=== PATIENT | female | born 1955 | race Two or more races ===

== ENCOUNTER 2020-08-20 17:22 | Emergency (ER) | payer OTHER, SELFPAY ==
[2020-08-20 17:33] VITALS: BP 154/76; PULSE 88; RESP 16; TEMP 36.8; O2SAT 99; BMI 31.2
--- NOTE | 2020-08-20 17:52 | ECG_ITS ---
Test Reason : WEAKNESS Blood Pressure : / mmHG Vent. Rate : 085 BPM Atrial Rate : 085 BPM P-R Int : 198 ms QRS Dur : 092 ms QT Int : 384 ms P-R-T Axes : 053 -15 071 degrees QTc Int : 456 ms Normal sinus rhythm Left axis deviation Minimal voltage criteria for LVH, may be normal variant Borderline ECG When compared with ECG of 03-AUG-2019 17:58, Left bundle branch block is no longer Present Referred By: Betsy Hope Electronically Signed By:BRENDA CASTRO MD
--- NOTE | 2020-08-20 18:11 | ED_ITS ---
HPI - General Adult General Chief complaint: General Medical Stated complaint: leg pain, dizzy, nausea Time Seen by Provider: 08/20/20 17:43 Source: patient and EMS Mode of arrival: EMS History of Present Illness HPI narrative: 65-year-old female with a past medical history of hypoglycemia presenting to ED complaining of low sugar at home of 100, room spinning dizziness, DE SANTI[place]O, nausea, and diffuse myalgias > LE x today. Reports dizziness associated with position changes. reports similar symptoms in the past. Also describes near syncopal episode due to cramping / dizziness. Denies LOC/head trauma. Denies fever, chills, visual change/loss, neck pain, CP / SOB, vomiting/ diarrhea, urinary symptoms Onset (ago): day(s) Related Data Allergies Allergy/AdvReac Type Severity Reaction Status Date / Time seafood Allergy Intermediate Dizziness Uncoded 08/20/20 19:43 Review of Systems Review of Systems: Constitutional: No Fever, No Chills, No Night Sweats, No Fatigue, No Malaise Eyes: No Eye Pain, No Swelling, No Vision Changes Cardiovascular: No Chest Pain, No SOB, No Dyspnea on Exertion, No Palpitations Respiratory: No Cough, No Sputum, No Dyspnea Gastrointestinal: +Nausea, No Vomiting, No Diarrhea, No Constipation, No Abdominal pain Genitourinary: No Dysuria, No Urinary Frequency, No Hematuria Musculoskeletal: No joint pain, + Myalgias, No Joint Swelling Skin: No Skin Lesions, No rash Neuro: No Weakness, No Numbness, No Paresthesias, No Loss of Consciousness, + Dizziness, + Headache Neurologic: Reports Abnormal speech present and Denies Sensory deficit (Neuro) [facility] Past Medical History Attestation statement: The following information was validated with the patient. Source: nursing notes reviewed Social History Social History Alcohol intake: never Smoking Status: Never smoker Use of substances other than those prescribed or required for medical reasons: No Advance Directives: No Advance Directives Information Provided: Yes Physical Exam Vital Signs: Vital Signs: Vital Signs Temp Pulse Resp BP Pulse Ox 08/20/20 19:50 80 143/81 H 08/20/20 19:39 95.9 F L 88 18 127/80 100 08/20/20 17:33 98.2 F 88 16 154/76 H 99 Body Mass Index 31.2 Const: General: cooperative and healthy appearing Or ientation/consciousness: patient oriented x3 Limitations: no limitations HENMT: Head: Yes normal to inspection Ears: hearing grossly normal bilaterally General nose exam: Normal external nose present Face and sinus : Yes normal facial exam Eyes: General: appearance normal, both eyes and all related structures Pupils: Equal, round and reactive pupils present EOM: EOMs intact bilaterally Neck: Neck: Yes normal visual inspection and Yes no meningeal signs Resp: Effort & Inspection: normal respiratory effort Auscultation: clear to auscultation bilaterally, no crackles, no rales and no rhonchi Cardio: Rate: regular rate Heart sounds: S1 normal heart sound present and S2 normal heart sound present GI: Inspection: Yes normal to inspection Palpation (GI): Soft to palpation, nontender, no guarding and not rigid Skin: Rashes: no rashes Wounds: no wounds Neuro: General: patient oriented x3, tone normal, moves all extremities, no meningeal signs, no focal motor deficits and CN's II-XI intact bilaterally Cranial nerves: Yes Equal, round and reactive pupils present Cognition (Neuro): normal cognition Speech: Abnormal speech present Motor exam (neuro): 5/5 motor strength present throughout Sensory Exam: No Sensory deficit (Neuro) Coordination: [id number] test normal Extrem: General: Yes normal to inspection Course Course Course Narrative: -1942-- labs unremarkable, troponin negative, glucose 121 - UA negative, Orthostatic VS negative > on re-evaluation pt reports sx improvement/resolution in the ED. Worrisome signs and symptoms and strict return precautions discussed. Patient verbalized understanding feel safe for discharge home Medical Decision Making [facility] Narrative Medical decision making narrative: 65-year-old female with a past medical history of hypoglycemia presenting to ED complaining of low sugar at home of 100, room spinning dizziness, DE S[place]O, nausea, and diffuse myalgias > LE x today. on exam VSS, NAD/ nontoxic appearing, no focal neuro deficits, dizziness elicited on EOMs. Concern for ?hypoglycemia vs BPPV vs dehydration/metabolic abnormalities vs ACS. no concern for SAH/ICH/CVT plan: EKG, labs, UA, orthostatics, symptomatic therapy/reassess Lab Data Result diagrams: 08/20/20 18:52 08/20/20 18:52 Labs: Lab Results 08/20/20 08/20/20 08/20/20 Range/Units 18:52 18:52 18:52 WBC 8.9 (4.8-10.8) X10*3/uL RBC 4.68 (4.20-5.50) X10*6/uL Hgb 11.3 L (12.0-16.0) g/dl Hct 37.5 (37-47) % MCV 80.1 (80-98) fL MCH 24.1 L (27.0-33.0) pg MCHC 30.1 L (31.0-35.0) g/dl RDW 15.5 (11.0-16.0) % Plt Count 272 (160-400) X10*3/uL MPV 10.0 (9.4-12.3) fL Immature Gran % (Auto) 0.3 (0.0-0.4) % Neut % (Auto) 67.0 (45-73) % Lymph % (Auto) 26.9 (20-40) % [place] % (Auto) 4.2 (2-11) % Eos % (Auto) 0.8 (0-4) % Baso % (Auto) 0.8 (0-2) % Lymph # (Auto) 2.4 (1.2-4.9) X10*3/uL [place] # (Auto) 0.4 (0.1-1.2) X10*3/uL Eos # (Auto) 0.1 (0.0-0.4) X10*3/uL Baso # (Auto) 0.1 (0.0-0.2) X10*3/uL Abs Immat Gran (auto) 0.03 (0.00-0.03) X10*3/uL Absolute Neuts (auto) 6.0 (2.0-8.3) X10*3/uL Absolute Nucleated RBC 0.000 (0.0-0.012) X10*3/uL Nucleated RBC % (auto) 0.0 (0.0-0.2) /100WBC Hold Blue Top SEE NOTE Sodium 139 (135-145) mmol/L Potassium 4.1 (3.3-5.1) mmol/l Chloride 106 (96-108) mmol/L Carbon Dioxide 22 (22-29) mmol/L Anion Gap 15 (12-20) BUN 17 H (9-16) mg/dL Creatinine 0.80 (0.5-1.4) mg/dL Estim Creat Clear Calc 66.6 Estimated GFR > 60 POC Glucose (60-115) mg/dL Random Glucose 121 H (60-115) mg/dL Calcium 8.3 L (8.4-10.2) mg/dL Magnesium 2.1 (1.6-2.6) mg/dL Total Bilirubin < 0.2 (0.0-1.0) mg/dL Direct Bilirubin < 0.2 (0.0-0.5) mg/dL AST 14 (5-31) U/L ALT 14 (0-31) U/L Alkaline Phosphatase 172 H (39-117) U/L Total Creatine Kinase (26-140) U/L Troponin I High Sens (<3.5-17.0) ng/L Total Protein 7.8 (6.5-8.0) g/dL Albumin 4.0 (3.5-5.0) g/dL Urine Color Urine Appearance Urine pH (5.0-8.0) Ur Specific [place] (1.005-1.025) Urine Protein (NEG-TRACE) MG/DL Urine Glucose (UA) (NEG) MG/DL Urine Ketones (NEG) MG/DL Urine Blood (NEG) Urine Nitrite (NEG) Ur Leukocyte Esterase (NEG) 08/20/20 08/20/20 08/20/20 Range/Units 18:52 18:52 19:49 WBC (4.8-10.8) X10*3/uL RBC (4.20-5.50) X10*6/uL Hgb (12.0-16.0) g/dl Hct (37-47) % MCV (80-98) fL MCH (27.0-33.0) pg MCHC (31.0-35.0) g/dl RDW (11.0-16.0) % Plt Count (160-400) X10*3/uL MPV (9.4-12.3) fL Immature Gran % (Auto) (0.0-0.4) % Neut % (Auto) (45-73) % Lymph % (Auto) (20-40) % [place] % (Auto) (2-11) % Eos % (Auto) (0-4) % Baso % (Auto) (0-2) % Lymph # (Auto) (1.2-4.9) X10*3/uL [place] # (Auto) (0.1-1.2) X10*3/uL Eos # (Auto) (0.0-0.4) X10*3/uL Baso # (Auto) (0.0-0.2) X10*3/uL Abs Immat Gran (auto) (0.00-0.03) X10*3/uL Absolute Neuts (auto) (2.0-8.3) X10*3/uL Absolute Nucleated RBC (0.0-0.012) X10*3/uL Nucleated RBC % (auto) (0.0-0.2) /100WBC Hold Blue Top Sodium (135-145) mmol/L Potassium (3.3-5.1) mmol/l Chloride (96-108) mmol/L Carbon Dioxide (22-29) mmol/L Anion Gap (12-20) BUN (9-16) mg/dL Creatinine (0.5-1.4) mg/dL Estim Creat Clear Calc Estimated GFR POC Glucose (60-115) mg/dL Random Glucose (60-115) mg/dL Calcium (8.4-10.2) mg/dL Magnesium (1.6-2.6) mg/dL Total Bilirubin (0.0-1.0) mg/dL Direct Bilirubin (0.0-0.5) mg/dL AST (5-31) U/L ALT (0-31) U/L Alkaline Phosphatase (39-117) U/L Total Creatine Kinase 99 (26-140) U/L Troponin I High Sens < 3.5 (<3.5-17.0) ng/L Total Protein (6.5-8.0) g/dL Albumin (3.5-5.0) g/dL Urine Color YELLOW Urine Appearance CLEAR Urine pH 7.0 (5.0-8.0) Ur Specific Penn 1.010 (1.005-1.025) Urine Protein NEG (NEG-TRACE) MG/DL Urine Glucose (UA) NEG (NEG) MG/DL Urine Ketones NEG (NEG) MG/DL Urine Blood NEG (NEG) Urine Nitrite NEG (NEG) Ur Leukocyte Esterase NEG (NEG) 08/20/20 Range/Units 20:05 WBC (4.8-10.8) X10*3/uL RBC (4.20-5.50) X10*6/uL Hgb (12.0-16.0) g/dl Hct (37-47) % MCV (80-98) fL MCH (27.0-33.0) pg MCHC (31.0-35.0) g/dl RDW (11.0-16.0) % Plt Count (160-400) X10*3/uL MPV (9.4-12.3) fL Immature Gran % (Auto) (0.0-0.4) % Neut % (Auto) (45-73) % Lymph % (Auto) (20-40) % [place] % (Auto) (2-11) % Eos % (Auto) (0-4) % Baso % (Auto) (0-2) % Lymph # (Auto) (1.2-4.9) X10*3/uL [place] # (Auto) (0.1-1.2) X10*3/uL Eos # (Auto) (0.0-0.4) X10*3/uL Baso # (Auto) (0.0-0.2) X10*3/uL Abs Immat Gran (auto) (0.00-0.03) X10*3/uL Absolute Neuts (auto) (2.0-8.3) X10*3/uL Absolute Nucleated RBC (0.0-0.012) X10*3/uL Nucleated RBC % (auto) (0.0-0.2) /100WBC Hold Blue Top Sodium (135-145) mmol/L Potassium (3.3-5.1) mmol/l Chloride (96-108) mmol/L Carbon Dioxide (22-29) mmol/L Anion Gap (12-20) BUN (9-16) mg/dL Creatinine (0.5-1.4) mg/dL Estim Creat Clear Calc Estimated GFR POC Glucose 86 (60-115) mg/dL Random Glucose (60-115) mg/dL Calcium (8.4-10.2) mg/dL Magnesium (1.6-2.6) mg/dL Total Bilirubin (0.0-1.0) mg/dL Direct Bilirubin (0.0-0.5) mg/dL AST (5-31) U/L ALT (0-31) U/L Alkaline Phosphatase (39-117) U/L Total Creatine Kinase (26-140) U/L Troponin I High Sens (<3.5-17.0) ng/L Total Protein (6.5-8.0) g/dL Albumin (3.5-5.0) g/dL Urine Color Urine Appearance Urine pH (5.0-8.0) Ur Specific [place] (1.005-1.025) Urine Protein (NEG-TRACE) MG/DL Urine Glucose (UA) (NEG) MG/DL Urine Ketones (NEG) MG/DL Urine Blood (NEG) Urine Nitrite (NEG) Ur Leukocyte Esterase (NEG)
[2020-08-20 19:00] LABS: MANUAL DIFF FLAG NO
[2020-08-20 19:06] LABS: Basophils Absolute Auto 0.1 X10*3/uL (0.0-0.2); Basophils Percent Auto 0.8 % (0-2); Eosinophils Absolute Auto 0.1 X10*3/uL (0.0-0.4); Eosinophils Percent Auto 0.8 % (0-4); Hematocrit 37.5 % (37-47); Hemoglobin 11.3 g/dl (12.0-16.0); Imm Gran Abs Auto 0.03 X10*3/uL (0.00-0.03); Imm Gran Pct Auto 0.3 % (0.0-0.4); Lymphocytes Absolute Auto 2.4 X10*3/uL (1.2-4.9); Lymphocytes Percent Auto 26.9 % (20-40); Mean Corpuscular HGB Conc 30.1 g/dl (31.0-35.0); Mean Corpuscular Hemoglobin 24.1 pg (27.0-33.0); Mean Corpuscular Volume 80.1 fL (80-98); Monocytes Absolute Auto 0.4 X10*3/uL (0.1-1.2); Monocytes Percent Auto 4.2 % (2-11); Platelet Count 272 X10*3/uL (160-400); Red Blood Count 4.68 X10*6/uL (4.20-5.50); Red Cell Distribution Width 15.5 % (11.0-16.0); White Blood Count 8.9 X10*3/uL (4.8-10.8)
[2020-08-20 19:29] LABS: Troponin-I High Sensitivity < 3.5 ng/L (<3.5-17.0)
[2020-08-20] MEDS: Acetaminophen 325 MG TABLET 650 MG PO (19:37)
[2020-08-20] MEDS: ondansetron HCL 4 MG/2 ML VIAL IVPUSH (19:37)
[2020-08-20] MEDS: Meclizine HCl 25 MG TABLET PO (19:37)
[2020-08-20 19:38] LABS: Alanine Aminotransferase 14 U/L (0-31); Alkaline Phosphatase 172 U/L (39-117); Anion Gap 15 (12-20); Aspartate Amino Transferase 14 U/L (5-31); Bilirubin Direct < 0.2 mg/dL (0.0-0.5); Bilirubin Total < 0.2 mg/dL (0.0-1.0); Blood Urea Nitrogen 17 mg/dL (9-16); Calcium 8.3 mg/dL (8.4-10.2); Carbon Dioxide 22 mmol/L (22-29); Chloride 106 mmol/L (96-108); Creatinine Clr Calc Pharmacy 66.6; Estimated Glomerular Filt Rate > 60; Glucose Random 121 mg/dL (60-115); Magnesium 2.1 mg/dL (1.6-2.6); Potassium 4.1 mmol/l (3.3-5.1); Sodium 139 mmol/L (135-145); Total Protein 7.8 g/dL (6.5-8.0)
[2020-08-20] MEDS: 0.9 % Sodium Chloride 1,000 ML 999 ML IVCONT (19:38)
[2020-08-20 19:39] VITALS: BP 127/80; PULSE 88; RESP 18; TEMP 35.5; O2SAT 100
[2020-08-20 19:50] VITALS: BP 143/81; PULSE 80
[2020-08-20 20:01] LABS: Glucose Urine UA NEG (NEG); Leukocyte Esterase Urine NEG (NEG); Nitrite Urine NEG (NEG); Urine Blood NEG (NEG); Urine Ketones NEG (NEG); Urine Protein NEG (NEG-TRACE)
[2020-08-20 20:04] LABS: Appearance Urine CLEAR; Color Urine YELLOW
[2020-08-20 20:10] LABS: Glucose, Whole Blood 86 mg/dL (60-115)
== END 2020-08-20 20:54 | disposition home or self-care (01) ==
PROVIDERS: Physician Assistant; Emergency Provider Internal Medicine
DX: E16.2 Hypoglycemia, unspecified (principal); M79.605 Pain in left leg; M79.604 Pain in right leg; R42 Dizziness and giddiness
CPT/HCPCS: 36415; 80048; 80076; 81003; 82550; 82947; 83735; 84484; 85025; 93005; 96361; 96374; 99284; J2405

== ENCOUNTER 2020-09-26 13:39 | Outpatient (REF) | payer OTHER, SELFPAY ==
--- NOTE | 2020-09-26 | PFT_ITS ---
Forced vital capacity, FEV1, BFU69-37, and MVV normal. Post bronchodilator therapy, there is no significant change. Total lung capacity and residual volume normal. Diffusion capacity normal. CONCLUSION: Normal pulmonary function test. MD MARTIN Man/MODL / [id number]
== END 2020-09-26 13:40 | disposition home or self-care (01) ==
LOC: HO.RESP 13:39
PROVIDERS: PCP Family Medicine; Visit Provider Family Medicine
DX: J45.40 Moderate persistent asthma, uncomplicated (principal); J30.9 Allergic rhinitis, unspecified; R49.0 Dysphonia
CPT/HCPCS: 94060; 94727; 94729

== ENCOUNTER → 2021-01-08 08:53 | Outpatient (REF) | payer OTHER, SELFPAY ==
--- NOTE | ~2021-01-08 | NM_ITS ---
Myocardial perfusion study Indication: Shortness of breath to evaluate for myocardial ischemia Technique: The patient was brought in for a Lexiscan perfusion study on 01/08/2021. Patient performed low-level exercise and was injected 0.4 mg of Lexiscan intravenously. Within a minute of injection, 25 mCi of sestamibi was given intravenously. Images were obtained using the SPECT gamma camera interlaced with the gating device. Images were obtained in supine position. Resting perfusion study was performed on 01/09/2021. Patient was administered 25 mCi of sestamibi intravenously at rest. Images were then obtained in supine position. Images obtained with and without CT attenuation. Total DLP 73 mGy-cm. Images were processed with the software and compared side to side in short axis, horizontal long axis and vertical long axis views. Findings: The stress perfusion study showed non attenuated images show normal uptake of radiotracer in all segments of LV myocardium. Attenuation corrected images show moderately reduced uptake in the distal apical wall of the cardiac.. The gated study shows normal LV systolic function with calculated LVEF of 57%. LV cavity is normal size. The gated study shows normal systolic wall thickening and contraction of segments. Resting study shows non attenuated attenuated corrected images show normal uptake of radiotracer in all segments myocardium.. Gating at rest reveals normal systolic wall motion with ejection fraction at greater than 50 %. The findings are consistent with equivocal finding with normal perfusion on non attenuated images. There is reversible defect attenuation corrected images probably is positive positive. NM/NM charley perf SPECT rest & str Impression: 1. Myocardial perfusion imaging study shows likely normal myocardial perfusion 2. Gated LVEF is 57% 3. Transient ischemic dilatation not present EKG is nondiagnostic for ischemia
--- NOTE | 2021-01-08 09:30 | CA_ITS ---
Acquisition Time: 2021-01-08 09:20:07 Total Exercise Time: 00:02:00 Test Indications: sob Medications: see chart Protocol: LEXISCAN Max HR: 111 BPM 72% of Pred: 154 BPM Max BP: 124/078 mmHG Max Work Load: 1.0 METS Pharmacological stress test with Lexiscan injection, while sitting and kicking her legs, without anginal symptoms, without arrythmia, with normotensive response to injection, with nondiagnostic EKG for ischemia, In recovery she reported lightheadedness and was treated with Aminophylline 75mg IVP to reverse Lexiscan with improvement in symptom. Nuclear images pending. Test reviewed with Dr Serra. Referred By: Walt Hernandez Overread By: RODRIGUEZ JEONG
== END ==
LOC: HO.CARD 08:53
PROVIDERS: Visit Provider Internal Medicine Cardiovascular Disease
DX: R06.02 Shortness of breath (principal)
CPT/HCPCS: 78452; 93017; A9500; J0280; J2785

== ENCOUNTER 2022-02-26 10:10 | Outpatient (REF) | payer OTHER, SELFPAY ==
--- NOTE | ~2022-02-26 | MM_ITS ---
EXAMINATION: BONE DENSITOMETRY CLINICAL INDICATION: Menopause. COMPARISON: None (current study represents initial baseline exam). TECHNIQUE: Using a Fusion Dynamic DXA System (software version: 13.1) manufactured by [employer], dual-energy x-ray absorptiometry was performed of the lumbar spine and left hip. The images are of good technical quality. Summary results are attached. FINDINGS: AP SPINE L1-L4: BMD 0.962 g/cm2, Z-score -0.6, T-score -1.8, osteopenia. LEFT FEMUR, NECK: BMD 0.738 g/cm2, Z-score -0.8, T-score -2.2, osteopenia. LEFT FEMUR, TOTAL: BMD 0.796 g/cm2, Z-score -0.6, T-score -1.7, osteopenia. IDENTIFIED RISK FACTORS: Early menopause, hysterectomy, secondary osteoporosis. HISTORY OF FRACTURE: None listed. MEDICATIONS: Vitamin D. MM/XR DEXA axial skeleton IMPRESSION: 1. DIAGNOSIS: Osteopenia based on the lowest T-score value of -2.2 in the femoral neck applying World Health Organization criteria. 2. 10-YEAR FRACTURE RISK PREDICTION, FRAX: Major osteoporotic fracture (clinical spine, forearm, hip or shoulder) 6.4%. Hip fracture 1.1%. 3. Treatment Recommendations: NOF guidelines recommend consideration for treatment in postmenopausal women and men age 50 and older presenting with the following: -A hip or vertebral (clinical or morphometric) fracture. -T-score less than or equal to -2.5 at the femoral neck or spine after appropriate evaluation to exclude secondary causes. -Low bone mass at the hip or spine and a 10-year fracture probability by FRAX of greater than or equal to 3% for hip fracture or greater than or equal to 20% for major osteoporotic fracture based on the [place] adapted WHO algorithm. 4. Other Recommendations: All treatment decisions require clinical judgment and consideration of individual patient factors, including patient preferences, comorbidities, previous drug use, risk factors not captured in the FRAX model (e.g. frailty, falls, vitamin D deficiency, increased bone turnover, interval significant decline in bone density) and possible under or overestimation of fracture risk by FRAX. Additional medical evaluation for secondary cause of low bone mineral density may be appropriate. FUTURE SCAN RECOMMENDATION: People with diagnosed cases of osteoporosis or at high risk for fracture should have regular bone mineral density tests. For patients eligible for Medicare, routine testing is allowed once every 2 years. The testing frequency can be increased to one year for patients who have rapidly progressing disease, those who are receiving or discontinuing medical therapy to restore bone mass, or have additional risk factors.
--- NOTE | ~2022-02-26 | MM_ITS ---
EXAMINATION: MM SCREENING DIGITAL BREAST TOMOSYNTHESIS, BILATERAL CLINICAL INFORMATION: Screening. Asymptomatic. The lifetime risk of breast cancer based on the Tyrer-Cuzick Model is 3%. COMPARISON: Mammography: 08/22/2017, 09/01/2015 TECHNIQUE: Digital breast tomosynthesis is performed in both the craniocaudal and mediolateral oblique views along with computer-aided detection (CAD). Synthesized 2D images are generated from the tomosynthesis. FINDINGS: There are scattered areas of fibroglandular density (ACR BI-RADS breast composition Category b). Parenchymal pattern borders on heterogeneously dense. There is no developing density or interval significant mass or architectural abnormality. Circumscribed nodule again noted left breast mid 3:00 position. There is a dermal lesion overlying the posterior upper outer right breast. Scattered bilateral vascular and some benign round calcifications are present. No suspicious calcifications. The axilla and skin contours are unremarkable. MM/MM tomosynthesis screening BI IMPRESSION: No mammographic evidence of malignancy. ASSESSMENT: BI-RADS 2: Benign RECOMMENDATION: Routine annual mammography screening. This patient's information was entered into a reminder system with a target due date for their next mammogram.
== END 2022-02-26 10:11 | disposition home or self-care (01) ==
LOC: HO.MAMMO 10:10
PROVIDERS: PCP Family Medicine; Visit Provider Family Medicine
DX: Z12.31 Encounter for screening mammogram for malignant neoplasm of breast (principal); Z13.820 Encounter for screening for osteoporosis; Z78.0 Asymptomatic menopausal state; M85.80 Other specified disorders of bone density and structure, unspecified site
CPT/HCPCS: 77063; 77067; 77080

== ENCOUNTER 2022-04-23 19:28 | Emergency (ER) | payer OTHER, SELFPAY ==
[2022-04-23 21:35] VITALS: BP 141/73; PULSE 97; RESP 16; TEMP 36.4; O2SAT 98; BMI 31.7
[2022-04-23 23:30] LABS: COVID-19 Test Negative (Negative); IDNOW Serial# 16C4AD1C; IDNOW Serial# 55D5AD1C; Influenza A Negative (Negative); Influenza B2 Negative (Negative)
== END 2022-04-24 00:31 | disposition left against medical advice (07) ==
PROVIDERS: Emergency Medicine; Emergency Provider Emergency Medicine
DX: R51.9 Headache, unspecified (principal); Z20.822 Contact with and (suspected) exposure to COVID-19
CPT/HCPCS: 87502; 87635; 99281; 99282

== ENCOUNTER 2023-04-15 08:42 | Outpatient (REF) | payer OTHER, SELFPAY ==
--- NOTE | ~2023-04-15 | CT_ITS ---
EXAMINATION: CT head/brain wo IV con CLINICAL INFORMATION: Dizziness COMPARISON: None. TECHNIQUE: Contiguous axial imaging was performed from the skull base to vertex without intravenous contrast. Sagittal and coronal reformatted images were obtained. This CT examination was performed using dose optimization techniques as appropriate, variously including the following: * Automated exposure control * Adjustment of mA and/or kV according to patient size (this includes techniques or standardized protocols for targeted exams where dose is matched to indication/reason for exam; i.e. extremities or head) Use of iterative reconstruction technique DLP: 652.54 mGy-cm FINDINGS: The ventricles and sulci are normal in size and configuration without significant volume loss or hydrocephalus. There is no abnormal attenuation within the brain parenchyma. No territorial loss of kirk-white differentiation. Partially empty sella. No acute intracranial hemorrhage or extra-axial fluid collection. No mass lesion, significant mass effect, or herniation pattern. Calcific atherosclerotic disease, most pronounced of the carotid siphons. The orbits are grossly normal. Paranasal sinuses and mastoid air cells are well aerated. Osseous structures are intact. Incidental hyperostosis frontalis interna. Mild degenerative changes of the bilateral temporomandibular joints. Mild to moderate degenerative osseous spurring across the anterior atlantodental interval. CT/CT head/brain wo IV con IMPRESSION: No acute intracranial abnormality. Partially empty sella.
== END 2023-04-15 08:43 | disposition home or self-care (01) ==
LOC: HO.CT 08:42
PROVIDERS: Visit Provider Family Medicine
DX: R42 Dizziness and giddiness (principal)
CPT/HCPCS: 70450

== ENCOUNTER 2023-08-20 10:33 | Outpatient (REF) | payer OTHER, SELFPAY ==
--- NOTE | ~2023-08-20 | MM_ITS ---
EXAMINATION: MM SCREENING DIGITAL BREAST TOMOSYNTHESIS, BILATERAL CLINICAL INFORMATION: Screening. Asymptomatic. COMPARISON: Mammography: This study is compared with prior exams dating back to 2015. TECHNIQUE: Digital breast tomosynthesis is performed in both the craniocaudal and mediolateral oblique views along with computer-aided detection (CAD). Synthesized 2D images are generated from the tomosynthesis. FINDINGS: There are scattered areas of fibroglandular density (ACR BI-RADS breast composition Category b). There are no significant masses, abnormal calcifications, or other abnormalities. MM/MM tomosynthesis screening BI IMPRESSION: No mammographic evidence of malignancy. ASSESSMENT: BI-RADS BI-RADS 1 - Negative RECOMMENDATION: Routine annual mammography screening. 1 year F/U This examination should not preclude the clinical evaluation of a suspicious palpable abnormality. This patient's information was entered into a reminder system with a target due date for their next mammogram.
== END 2023-08-20 10:34 | disposition home or self-care (01) ==
LOC: HO.MAMMO 10:33
PROVIDERS: PCP Family Medicine; Visit Provider Family Medicine
DX: Z12.31 Encounter for screening mammogram for malignant neoplasm of breast (principal)
CPT/HCPCS: 77063; 77067

== ENCOUNTER → 2023-08-20 11:15 | Outpatient (BNV) | payer OTHER, SELFPAY | PROVIDERS: PCP Family Medicine; Visit Provider Radiology Diagnostic Radiology | DX: Z12.31 Encounter for screening mammogram for malignant neoplasm of breast (principal) | CPT/HCPCS: 77063; 77067 ==

== ENCOUNTER 2023-10-29 09:45 | Outpatient (REF) | payer OTHER, SELFPAY ==
[2023-10-29 11:58] LABS: Estimated Average Glucose 131 mg/dL; Hemoglobin A1c % 6.2 % (<6.0)
[2023-10-29 12:21] LABS: Alanine Aminotransferase 19 U/L (0-31); Albumin Level 3.9 g/dL (3.5-5.0); Alkaline Phosphatase 148 U/L (39-117); Anion Gap 13 (12-20); Aspartate Amino Transferase 15 U/L (5-31); Bilirubin Total 0.4 mg/dL (0.0-1.0); Blood Urea Nitrogen 22 mg/dL (9-16); Calcium 9.4 mg/dL (8.4-10.2); Carbon Dioxide 26 mmol/L (22-29); Chloride 108 mmol/L (96-108); Cholesterol 180 mg/dL (<200); Estimated Glomerular Filt Rate > 60; Glucose Random 82 mg/dL (60-115); HDL Cholesterol 49 mg/dL (>40); LDL Cholesterol Calculated 101 mg/dL (<100); Sodium 143 mmol/L (135-145); TSH reflex Free T4 1.76 uIU/mL (0.32-4.0); Total Protein 7.5 g/dL (6.5-8.0); Triglycerides 150 mg/dL (<150)
[2023-10-29 13:58] LABS: Reflex LDLD? No
== END 2023-10-29 09:46 | disposition home or self-care (01) ==
LOC: HO.HHCL 09:45
PROVIDERS: Visit Provider Family Medicine
DX: E03.8 Other specified hypothyroidism (principal); E06.3 Autoimmune thyroiditis; I10 Essential (primary) hypertension; R73.01 Impaired fasting glucose
CPT/HCPCS: 36415; 80053; 80061; 83036; 84443

== ENCOUNTER 2024-02-19 05:06 | Emergency (ER) | payer OTHER, SELFPAY ==
[2024-02-19] VITALS (9 sets, daily range): BP systolic 119–180; BP diastolic 56–110; PULSE 72–78; RESP 13–18; TEMP 36.6–37.2; O2SAT 95–97; BMI 32.3
--- NOTE | 2024-02-19 | ECG_ITS ---
Test Reason : CHEST PAIN Blood Pressure : / mmHG Vent. Rate : 069 BPM Atrial Rate : 069 BPM P-R Int : 210 ms QRS Dur : 130 ms QT Int : 456 ms P-R-T Axes : 055 -29 073 degrees QTc Int : 488 ms Sinus rhythm with 1st degree A-V block Left bundle branch block Abnormal ECG When compared with ECG of 20-AUG-2020 18:57, Left bundle branch block is now Present Referred By: Generic ED Physician Electronically Signed By:LATRICIA TRAN
--- NOTE | ~2024-02-19 | CT_ITS ---
EXAMINATION: CT HEAD WITHOUT CONTRAST CLINICAL INFORMATION: Severe headache. COMPARISON: 04/15/2023. TECHNIQUE: Contiguous axial imaging was performed from the skull base to vertex without intravenous administration of contrast. This CT examination was performed using dose optimization techniques as appropriate, variously including the following: *Automated exposure control *Adjustment of mA and/or kV according to patient size (this includes techniques or standardized protocols for targeted exams where dose is matched to indication/reason for exam; i.e. extremities or head) *Use of iterative reconstruction technique DLP: 582 mGy-cm FINDINGS: There is no evidence of acute intracranial hemorrhage or large territorial infarction. No mass effect or midline shift is seen. Patel to white matter differentiation is preserved. No extra-axial fluid collections are identified. Partially empty sella. No hydrocephalus. Hyperostosis frontalis. Degenerative changes of the temporomandibular joints. The soft tissues are intact. The mastoid air cells and visualized portions of the paranasal sinuses are well aerated. CT/CT head/brain wo IV con IMPRESSION: No acute intracranial pathology.
[2024-02-19 05:50] LABS: Basophils Absolute Auto 0.1 X10*3/uL (0.0-0.2); Basophils Percent Auto 1.1 % (0-2); Eosinophils Absolute Auto 0.2 X10*3/uL (0.0-0.4); Eosinophils Percent Auto 2.6 % (0-4); Hematocrit 36.7 % (37.0-47.0); Hemoglobin 11.6 g/dl (12.0-16.0); Imm Gran Abs Auto 0.03 X10*3/uL (0.00-0.03); Imm Gran Pct Auto 0.4 % (0.0-0.4); Lymphocytes Absolute Auto 3.1 X10*3/uL (1.2-4.9); Lymphocytes Percent Auto 37.5 % (20-40); MANUAL DIFF FLAG NO; Mean Corpuscular HGB Conc 31.6 g/dl (31.0-35.0); Mean Corpuscular Hemoglobin 26.2 pg (27.0-33.0); Mean Platelet Volume 9.9 fL (9.4-12.3); Monocytes Absolute Auto 0.6 X10*3/uL (0.1-1.2); Monocytes Percent Auto 7.5 % (2-11); Neutrophils Absolute Auto 4.2 x10*3/uL (2.0-8.3); Neutrophils Percent Auto 50.9 % (45-73); Platelet Count 245 X10*3/uL (160-400); Red Blood Count 4.42 X10*6/uL (4.20-5.50); Red Cell Distribution Width 14.5 % (11.0-16.0); White Blood Count 8.2 X10*3/uL (4.8-10.8)
[2024-02-19 06:03] LABS: Alanine Aminotransferase 8 U/L (0-31); Albumin Level 3.7 g/dL (3.5-5.0); Alkaline Phosphatase 159 U/L (39-117); Anion Gap 15 (12-20); Aspartate Amino Transferase 9 U/L (5-31); Bilirubin Total 0.2 mg/dL (0.0-1.0); Blood Urea Nitrogen 11 mg/dL (9-16); Calcium 9.3 mg/dL (8.4-10.2); Carbon Dioxide 20 mmol/L (22-29); Chloride 110 mmol/L (96-108); Creatinine Clr Calc Pharmacy 54.8; Estimated Glomerular Filt Rate > 60; Glucose Random 127 mg/dL (60-115); Lipase 25 U/L (8-78); Potassium 3.9 mmol/L (3.3-5.1); Sodium 141 mmol/L (135-145); Total Protein 7.3 g/dL (6.5-8.0)
[2024-02-19 06:11] LABS: Troponin-I High Sensitivity < 2.7 ng/L (<3.5-17.0)
--- NOTE | 2024-02-19 06:37 | MHC.EDTECH ---
@0630 walked patient to bathroom. Helped help back to her room and back into bed ( due to lack of eye sight and patient couldn't open eyes due to pain). Patient is resting comfortably at this time.
--- NOTE | 2024-02-19 07:02 | ED.HA ---
HPI - Headache General Chief Complaint: General Medical Stated Complaint: EYE PAIN/ CHEST DISCOMFORT Time Seen by Provider: 02/19/24 06:56 Source: patient, old records reviewed and educational interpreter Mode of arrival: ambulatory Limitations: no limitations History of Present Illness HPI Narrative: 68 yo female with PMH of anxiety, HTN, hypothyroidism, asthma, headaches, fibromyalgia here with c/o acute onset L eye pain at 2am and chest pain at 4am - states she has had this pain in L eye many times before since failed procedure in November of her cataract with a Dr. Lopez. She notes she has presented to the office with this pain before but they cannot do anything until her repeat procedure. She also notes her chest started to have pain in it at 4am. She denies dyspnea or vomiting. MD elicited complaint: headache Onset (ago): hour(s) (2am) Onset description: gradually Severity: moderate Quality & Timing: throbbing Exacerbating factors: light and noise Context: other (hx of similar episodes) Associated symptoms: photophobia Treatments prior to arrival: none Related Data Previous Rx's ?Medication ?Instructions ?Recorded meclizine 25 mg tablet 25 mg PO TID PRN dizziness #14 tabs 08/20/20 Allergies Allergy/AdvReac Type Severity Reaction Status Date / Time seafood Allergy Intermediate Dizziness Uncoded 02/19/24 05:26 Review of Systems Review of Systems: Constitutional : No Fever, No Chills, No Fatigue ENT/Mouth : No sore throat, No Rhinorrhea Eyes: pos Eye Pain, No Swelling, No Redness Cardiovascular : pos Chest Pain, No SOB, No Dyspnea on Exertion Respiratory : No Cough, No Sputum Gastrointestinal : No Nausea, No Vomiting, No Diarrhea, No abdominal Pain Genitourinary : No Dysuria, No Urinary Frequency, No Hematuria, Musculoskeletal : No joint pain, No Myalgias, No Joint Swelling Skin : No Skin Lesions, No rash Neuro : No Weakness, No Numbness, No Dizziness, positive Headache Psych : No Anxiety/Panic, No Depression Heme/Lymph: No Bruising, No Bleeding,No Lymphadenopathy Endocrine : No Polyuria, No Polydipsia All other systems reviewed and are negative [facility] Past Medical History Attestation statement: The following information was validated with the patient. Source: old records reviewed Medical History Asthma Fibromyalgia Chronic headache disorder HTN (hypertension), benign Hypothyroid Anxiety Surgical History History of nasal surgery History of cholecystectomy History of hysterectomy Social History Social History Alcohol intake: never Smoked in Last 30 Days: No Use of substances other than those prescribed or required for medical reasons: No Advance Directives: No Advance Directives Information Provided: No Do you have a plan to hurt others: No Plan Physical Exam Vital Signs: Vital Signs: Last Vital Signs Temp 98 F 02/19/24 12:49 Pulse 77 02/19/24 12:49 Resp 18 02/19/24 12:49 BP 119/56 L 02/19/24 12:49 Pulse Ox 95 02/19/24 12:49 O2 Del Method Room Air 02/19/24 12:49 BMI result Body Mass Index 32.3 Appearance: Alert. Oriented X3. No acute distress. Eyes: Pupils equal, round and reactive to light. L eye injected sclera normal periorbital area - tearing noted, pupil reactive 3mm injected sclera, photophobic IOP on multiple rechecks ENT: Pharynx normal. Neck: Normal inspection. Neck supple. CVS: Normal heart rate and rhythm. Pulses normal. Respiratory: No respiratory distress. Breath sounds normal. Abdomen: Soft and nontender. Skin: Skin warm and dry. Normal skin color. Normal skin turgor. Extremities: No lower extremity edema. No calf ttp Neuro: Oriented X 3. No motor deficit. No sensory deficit. Course Course Course Narrative: repeat IV dilaudid for pain ordered Medications Administered Discontinued Medications Generic Name Dose Route Start Last Admin Trade Name Freq PRN Reason Stop Dose Admin Hydromorphone HCl 1 mg 02/19/24 09:51 02/19/24 10:19 Hydromorphone Hcl 1 Mg/Ml Syringe IVPUSH 02/19/24 09:52 1 mg ONCE ONE Administration Protocol Morphine Sulfate 4 mg 02/19/24 07:37 02/19/24 08:26 Morphine Sulfate 4 Mg/Ml Cartridge IVPUSH 02/19/24 07:38 4 mg ONCE ONE Administration Protocol Ondansetron HCl 4 mg 02/19/24 07:37 02/19/24 08:26 Ondansetron Hcl 4 Mg/2 Ml Vial IVPUSH 02/19/24 07:38 4 mg ONCE ONE Administration Medical Decision Making Medical Decision Making [facility] Narrative: 68 yo female with PMH of anxiety, HTN, hypothyroidism, asthma, headaches, fibromyalgia, here with c/o acute onset L eye pain starting at 2am has hx of recurrent severe pain in L eye after failed cataract surgery in [place] with a Dr. Lopez (per patient). She notes she gets this pain from time to time and they cannot help her. At this time she also developed chest pain at 4am which is atypical she states she gets it all the time. Will obtain pressure in eye which is 20 no concern for acute glaucoma, trop x 2, CT scan for mass, IV morphine for pain. Reasess. Differential Diagnosis Differential Diagnoses: The differential diagnosis associated with the presentation includes GCA, acute pain in eye, headache, glaucoma Admission/Observation Consideration of admission/observation: Escalation of care including admission/observation considered pain improved at this time discussed with educational interpreter they are going to go and drive to Dr. Carter office now for further evaluation there is no head bleed they need to see their eye specalist. she notes no change in vision. Lab Data [facility] Lab Attestation statement: I reviewed the patient's lab results. 02/19/24 05:45 02/19/24 05:45 Labs: Lab Results 02/19/24 Range/Units 05:45 WBC 8.2 (4.8-10.8) X10*3/uL RBC 4.42 (4.20-5.50) X10*6/uL Hgb 11.6 L (12.0-16.0) g/dl Hct 36.7 L (37.0-47.0) % MCV 83.0 (80.0-98.0) fL MCH 26.2 L (27.0-33.0) pg MCHC 31.6 (31.0-35.0) g/dl RDW 14.5 (11.0-16.0) % Plt Count 245 (160-400) X10*3/uL MPV 9.9 (9.4-12.3) fL Immature Gran % (Auto) 0.4 (0.0-0.4) % Neut % (Auto) 50.9 (45-73) % Lymph % (Auto) 37.5 (20-40) % [place] % (Auto) 7.5 (2-11) % Eos % (Auto) 2.6 (0-4) % Baso % (Auto) 1.1 (0-2) % Lymph # (Auto) 3.1 (1.2-4.9) X10*3/uL [place] # (Auto) 0.6 (0.1-1.2) X10*3/uL Eos # (Auto) 0.2 (0.0-0.4) X10*3/uL Baso # (Auto) 0.1 (0.0-0.2) X10*3/uL Abs Immat Gran (auto) 0.03 (0.00-0.03) X10*3/uL Absolute Neuts (auto) 4.2 (2.0-8.3) x10*3/uL Absolute Nucleated RBC 0.000 (0.0-0.012) X10*3/uL Nucleated RBC % (auto) 0.0 (0.0-0.2) /100WBC ESR 29 H (0-20) MM/HR Sodium 141 (135-145) mmol/L Potassium 3.9 (3.3-5.1) mmol/L Chloride 110 H (96-108) mmol/L Carbon Dioxide 20 L (22-29) mmol/L Anion Gap 15 (12-20) BUN 11 (9-16) mg/dL Creatinine 0.84 (0.5-1.4) mg/dL Estim Creat Clear Calc 54.8 Estimated GFR > 60 Random Glucose 127 H (60-115) mg/dL Calcium 9.3 (8.4-10.2) mg/dL Total Bilirubin 0.2 (0.0-1.0) mg/dL AST 9 (5-31) U/L ALT 8 (0-31) U/L Alkaline Phosphatase 159 H (39-117) U/L Troponin I High Sens < 2.7 (<3.5-17.0) ng/L Total Protein 7.3 (6.5-8.0) g/dL Albumin 3.7 (3.5-5.0) g/dL Lipase 25 (8-78) U/L Independent Interpretation I performed an independent interpretation of an: EKG and CT Scan (no ICH) Interpretation: Rate: 69 Rhythm: NSR [place]: normal Normal P waves. Normal MAGDALENO. LBBB. ST T wave : normal no IRASEMA qTC: normal prior studies: no change The study has been interpreted contemporaneously by me. . Radiology Impression Discussion of test interpretation with radiology: I have reviewed the radiologist's reading. Independent Historian Clinical information obtained from an independent historian. History obtained from or confirmed by: Spouse External Record Review External record reviewed: Inpatient record Critical Care Time Critical Care Time Critical Care Time: Yes Total Critical Care Time: 40 Attestation: repeat pain medications with improvement in pain, review of records I attest to this time spent taking care of the patient Discharge Plan Discharge Clinical Impression: Acute pain in left eye Patient Disposition: Home, Self-Care Instructions: Eye Pain (ED) Additional Instructions: your CT scan was normal, your ESR was mildly elevated at 28. your pressure in your eye on recheck was 20. you need to see your eye doctor today as we discussed this is very serious. please get evaluated today as soon as possible. bring this paperwork with you. Prescriptions: No Action meclizine 25 mg tablet 25 mg PO TID PRN (Reason: dizziness) Qty: 14 0RF Interventions: ED Discharge Assessment Last Done: 02/19/24 12:49 Discharge Date/Time: 02/19/24 12:50 Print Language: Grenadian
[2024-02-19] MEDS: Morphine Sulfate 4 MG/ML CARTRIDGE IVPUSH (08:26)
[2024-02-19] MEDS: ondansetron HCL 4 MG/2 ML VIAL IVPUSH (08:26)
[2024-02-19 08:28] LABS: Erythrocyte Sedimentation Rate 29 MM/HR (0-20)
--- NOTE | 2024-02-19 08:37 | PC.NURSE ---
PT returned from CT, with at bedside, IV cora eplaced, meds given per DEC. VSS. Pt resting quietly with blanket over face. No new orders at this time
[2024-02-19] MEDS: HYDROmorphone HCl 1 MG/ML SYRINGE IVPUSH (10:19)
== END 2024-02-19 12:50 | disposition home or self-care (01) ==
PROVIDERS: Emergency Provider Emergency Medicine; PCP Family Medicine
DX: H57.12 Ocular pain, left eye (principal); R07.89 Other chest pain; R51.9 Headache, unspecified; H53.142 Visual discomfort, left eye; Z79.899 Other long term (current) drug therapy
CPT/HCPCS: 36415; 70450; 80053; 83690; 84484; 85025; 85652; 93005; 96374; 96375; 99284; 99285; J1170; J2270; J2405

== ENCOUNTER → 2024-02-19 05:24 | Outpatient (BNV) | payer OTHER, SELFPAY | PROVIDERS: Emergency Provider Emergency Medicine; PCP Family Medicine; Visit Provider Internal Medicine | DX: R07.9 Chest pain, unspecified (principal) | CPT/HCPCS: 93010 ==

== ENCOUNTER 2024-02-23 10:50 | Outpatient (AMB) | payer OTHER, SELFPAY ==
--- NOTE | 2024-02-23 11:03 | MHC.OFFVIS ---
Vital Signs 02/23/24 11:10 Height 4 ft 11 in Weight 160 lb BMI 32.3 BP 145/65 H Blood Pressure Location Lt brachial Position Sitting Pulse 71 Intake Visit Reasons: Colonoscopy Screening Intake Note: Patient new consult for 1st pre colonoscopy screening. Patient cc: Nauseas, dizziness, fatigue, abdominal pain with bloating, GERD with burning sensation, between diarrhea and constipation with some blood, poor appetite, and some swallowing problems with solid and liquid. Road Machinery Inspector Required: Yes Road Machinery Inspector Name: Chadd [id number] Accompanied by: Spouse Allergies seafood Allergy (Intermediate, Uncoded 02/19/24 05:26) Dizziness HPI HPI Colonoscopy Screening: Details: 68 year old? female with past medical history of allergic rhinitis, varicose veins, osteopenia, GERD, hypothyroidism, hypertension, asthma is here today for pre colonoscopy screening.? Patient was sent to us by her PCP.? This is her first colonoscopy screening.? Patient was found to have positive Cologuard and sent to us for colorectal screening. .? Denies any personal or family history of gastrointestinal disease, colon polyps, or CRC.? Denies history of difficulty with sedation or anesthesia in the past.? Negative for history of sleep apnea.?? No history of infectious? diseases like hepatitis A, B, C, HIV or tuberculosis.? Patient is not on any anticoagulation. Patient reports epigastric discomfort and dyspepsia postprandially. Patient reports that her symptoms are throughout the day as well as at night time. Patient states that she is unable to even lays down, feels acid reflux going up all the way to her throat. Patient denies dysphagia or odynophagia. Occasional nausea. Patient states that she is unable to move her bowels, bowel movements every few days. Patient states that when she does have a bowel movement she is not emptying completely. Patient denies any melena, hematochezia, unintentional weight loss or ribbon like stools. Patient was told that she has an extra beat and was placed on diltiazem. Patient had Holter monitor, stress test as well as echocardiogram and they were all normal. Patient denies any chest pain or shortness of breath with or without activity. [facility] Medical History (Updated 02/23/24 @ 11:31 by Felipa Hamm TELEMETRY NURSE-) Positive colorectal cancer screening using Cologuard test Asthma Fibromyalgia Chronic headache disorder HTN (hypertension), benign Hypothyroid Anxiety Surgical History (Updated 02/23/24 @ 11:05 by Stella Walker) Hx of cataract surgery History of nasal surgery History of cholecystectomy History of hysterectomy Social History Alcohol intake: never Review of Systems Const Denies weight gain and Denies weight loss ENT Reports no additional complaints, Denies dysphagia and Denies odynophagia Card Reports no additional complaints Resp Reports no additional complaints GI Reports abdominal pain (Epigastric), Denies belching, Denies melena, Reports bloating, Reports constipation, Denies dysphagia, Denies excessive flatus, Reports dyspepsia, Reports heartburn, Denies diarrhea, Denies loose stools, Denies nausea, Denies odynophagia and Denies vomiting Reports no additional complaints Musc Reports no additional complaints Neuro Reports no additional complaints Psych Reports no additional complaints Endo Reports no additional complaints Physical Exam Vital Signs: Last Vital Signs Pulse 71 02/23/24 11:10 BP 145/65 H 02/23/24 11:10 BMI result Body Mass Index 32.3 Const General: healthy appearing, no acute distress and well developed Nutritional Appearance: well nourished Orientation/consciousness: patient oriented x3 Resp Effort & Inspection: normal respiratory effort, able to speak in complete sentences, no tracheal deviation and symmetric chest movement Auscultation: clear to auscultation bilaterally Cardio Rate: regular rate GI Inspection: Yes normal to inspection and No distended Palpation (GI): Soft to palpation, not firm, nontender and No hepatosplenomegaly present Auscultation: normal bowel sounds General: Yes no CVA tenderness Back/Spine/Pelvis Back: no CVA tenderness Skin General skin exam: elasticity normal, turgor normal and dry skin Neuro General: patient oriented x3 Psych Appearance: grossly normal Mental Status: mental status grossly normal Assessment & Plan Assessment & Plan (1) Positive colorectal cancer screening using Cologuard test: Code(s): R19.5 - Other fecal abnormalities Category: Medical (2) Dyspepsia: Code(s): R10.13 - Epigastric pain (3) GERD (gastroesophageal reflux disease): Code(s): K21.9 - Gastro-esophageal reflux disease without esophagitis Qualifiers: Esophagitis presence: esophagitis presence not specified Qualified Code(s): K21.9 - Gastro-esophageal reflux disease without esophagitis (4) Postprandial abdominal bloating: Code(s): R14.0 - Abdominal distension (gaseous) (5) Epigastric abdominal pain: Code(s): R10.13 - Epigastric pain Plan Will book patient for procedure, however patient reports to have epigastric pain postprandially. Currently on pantoprazole reports that it has not working. Patient is taking every day before breakfast. Continues to have postprandial epigastric pain dyspepsia. Will send her to rule out celiac, H pylori. Patient will be check for vitamin B12, folate and vitamin-D levels. Will check her thyroid as well. Will change her PPI to Nexium. Patient will also take famotidine at bedtime. Discussed with patient avoiding dietary triggers and late night snacking. Staying upright for minimal 3 hours after meals discussed with patient. Patient currently is not moving her bowels well will start her on MiraLax in the morning and senna in the evening. Patient will return in 5-6 weeks to discuss going for colonoscopy, sooner if her symptoms will get worse or she will experience any additional GI concerning symptoms. Patient is agreeable to this plan and verbalizes understanding of instructions. She was given the opportunity to ask questions and all questions answered. Thank you for allowing me to participate in her care Orders: Orders Transglutaminase Ab IgG Today R10.9 - Unspecified abdominal pain Vitamin B12 and Folate Today R19.7 - Diarrhea, unspecified H pylori Ag Stool Today K21.9 - Gastro-esophageal reflux disease without esophagitis Transglutaminase IgA Today R10.9 - Unspecified abdominal pain TSH reflex Free T4 Today K59.00 - Constipation, unspecified Vitamin D 25-OH (D2 and D3) Today E55.9 - Vitamin D deficiency, unspecified Medications: New esomeprazole magnesium (Nexium) 40 mg PO DAILY 90 caps 5RF K21.9 - Gastro-esophageal reflux disease without esophagitis famotidine 40 mg PO BEDTIME 30 tabs 3RF K21.9 - Gastro-esophageal reflux disease without esophagitis polyethylene glycol 3350 (Miralax) 17 grams PO DAILY 510 grams 2RF sennosides (Natural Senna Laxative) 17.2 mg (2 x 8.6 mg) PO BEDTIME 60 tabs 3RF constipation K59.00 - Constipation, unspecified sennosides (Natural Senna Laxative) 17.2 mg (2 x 8.6 mg) PO BEDTIME 60 tabs 3RF constipation K59.00 - Constipation, unspecified esomeprazole magnesium (Nexium) 40 mg PO DAILY 90 caps 5RF K21.9 - Gastro-esophageal reflux disease without esophagitis famotidine 40 mg PO BEDTIME 30 tabs 3RF K21.9 - Gastro-esophageal reflux disease without esophagitis polyethylene glycol 3350 (Miralax) 17 grams PO DAILY 510 grams 2RF Coding Level of Care Code New Pt Level 4 (27890) Diagnoses Positive colorectal cancer screening using Cologuard test R19.5 Dyspepsia R10.13 Gastroesophageal reflux disease, unspecified whether esophagitis present K21.9 Esophagitis presence: esophagitis presence not specified Postprandial abdominal bloating R14.0 Epigastric abdominal pain R10.13 Time Spent (min) 45 Comment 30 minutes spent with patient and additional 15 minutes spent reviewing her records
[2024-02-23 11:10] VITALS: BP 145/65; PULSE 71; BMI 32.3
== END 2024-02-23 12:23 | disposition home or self-care (01) ==
PROVIDERS: PCP Family Medicine; Visit Provider Nurse Practitioner Family
DX: R19.5 Other fecal abnormalities (principal); R10.13 Epigastric pain; K21.9 Gastro-esophageal reflux disease without esophagitis; R14.0 Abdominal distension (gaseous)
CPT/HCPCS: 99204

== ENCOUNTER 2024-02-23 10:50 | Outpatient (REF) | payer OTHER, SELFPAY ==
[2024-02-23 15:18] LABS: TSH reflex Free T4 0.46 uIU/mL (0.32-4.0)
[2024-02-23 16:48] LABS: Folate 6.4 ng/mL (> or = 4.0); Vitamin B12 258 pg/mL (200-900)
[2024-02-25 14:33] LABS: Transglutaminase Ab IgG 7.3 U/mL; Transglutaminase IgA <1.0 U/mL
[2024-02-27 17:18] LABS: Vitamin D 25-OH, D2 <4 ng/mL; Vitamin D 25-OH, D3 33 ng/mL; Vitamin D 25-OH, Total 33 ng/mL (30-100)
== END 2024-02-23 10:51 | disposition home or self-care (01) ==
LOC: HO.LAB 10:50
PROVIDERS: PCP Family Medicine; Visit Provider Nurse Practitioner Family
DX: R10.9 Unspecified abdominal pain (principal); R19.7 Diarrhea, unspecified; K59.00 Constipation, unspecified; E55.9 Vitamin D deficiency, unspecified; R19.5 Other fecal abnormalities; R10.13 Epigastric pain; K21.9 Gastro-esophageal reflux disease without esophagitis; R14.0 Abdominal distension (gaseous)
CPT/HCPCS: 36415; 82306; 82607; 82746; 84443; 86364; 99202

== ENCOUNTER 2024-02-24 19:04 | Outpatient (REF) | payer OTHER, SELFPAY | END 2024-02-24 19:05 | disposition home or self-care (01) | LOC: HO.LNP 19:04 | PROVIDERS: Visit Provider Nurse Practitioner Family | DX: K21.9 Gastro-esophageal reflux disease without esophagitis (principal) | CPT/HCPCS: 87338 ==

== ENCOUNTER 2024-06-25 09:32 | Day surgery (SDC) | payer OTHER, SELFPAY ==
--- NOTE | 2024-06-24 12:49 | P.CONAN_ITS ---
Documented by User: Lisa Mccormack NP 06/24/24 12:53 HPI - Anesthesia Eval Consult details Narrative: 68yo F for Upper Endoscopy and Colonoscopy Cardiac optimized. Follows [facility] Cardiology for palpitations, cardiomyopathy, and htn. Last office visit 01/2024, increased diltiazem. PMF Active Problems Active Problems: All Active Problems Osteopenia (Acute) Memory problem (Acute) Allergic rhinitis (Acute) Chronic venous insufficiency of lower extremity (Acute) Varicose veins of both lower extremities (Acute) Positive colorectal cancer screening using Cologuard test (Acute) Past Medical History Medical History Palpitations Dyslipidemia Cardiomyopathy Positive colorectal cancer screening using Cologuard test Fibromyalgia Anxiety Chronic headache disorder HTN (hypertension), benign Hypothyroid Asthma Surgical History Surgical History Hx of cataract surgery History of nasal surgery History of cholecystectomy History of hysterectomy Social History Social History Are you a primary palliative care physician to a significant other at home: No Do you presently have visiting nurse or other home services: No Alcohol intake: never Patient Tobacco Use Status: Never used Tobacco Use of substances other than those prescribed or required for medical reasons: No Have you been hit, kicked, punched, or otherwise hurt by someone within the past year? If so, by whom?: No Are you DNR?: No Advance Directives: No Advance Directives Information Provided: Yes Recently lost weight without trying: No Nutrition Risks: No Nutritional Risk Meds Allergies Allergy/AdvReac Type Severity Reaction Status Date / Time seafood Allergy Intermediate Dizziness Verified 06/25/24 10:08 Home Medications ?Medication ?Instructions ?Recorded ?Confirmed ?Last Taken ?Type albuterol sulfate 90 mcg/actuation 1 inh inhalation QID 02/23/24 06/25/24 Unknown History aerosol inhaler (Ventolin HFA) aspirin 81 mg chewable tablet 81 mg PO DAILY 02/23/24 06/25/24 Unknown History atorvastatin 10 mg tablet 10 mg PO DAILY 02/23/24 06/25/24 Unknown History budesonide-formoterol HFA 80 1 puff inhalation DAILY 02/23/24 06/25/24 Unknown History mcg-4.5 mcg/actuation aerosol inhaler chlorthalidone 25 mg tablet 25 mg PO DAILY 02/23/24 06/25/24 Unknown History cholecalciferol (vitamin D3) 25 25 mcg PO DAILY 02/23/24 06/25/24 Unknown History mcg (1,000 unit) capsule (Vitamin D3) diltiazem HCl 360 mg 360 mg PO DAILY 02/23/24 06/25/24 06/25/24 History tablet,extended release 24 hr duloxetine 20 mg capsule,delayed 20 mg PO DAILY 02/23/24 06/25/24 Unknown History release hydroxyzine HCl 25 mg tablet 25 mg PO TID 02/23/24 06/25/24 Unknown History levothyroxine 75 mcg tablet 75 mcg PO DAILY 02/23/24 06/25/24 Unknown History lisinopril 40 mg tablet 40 mg PO DAILY 02/23/24 06/25/24 06/25/24 History loratadine 10 mg tablet 10 mg PO DAILY 02/23/24 06/25/24 Unknown History metoprolol tartrate 25 mg tablet 25 mg PO DAILY 02/23/24 06/25/24 06/25/24 History montelukast 10 mg tablet 10 mg PO DAILY 02/23/24 06/25/24 Unknown History Exam Pertinent Lab Results Pertinent Lab Results: Laboratory Tests 02/19/24 05:45 WBC 8.2 Hgb 11.6 L Hct 36.7 L Plt Count 245 Sodium 141 Potassium 3.9 Chloride 110 H Carbon Dioxide 20 L BUN 11 Creatinine 0.84 Narrative Narrative: ECHO 10/2023 1. LV nml size 2. LV wall thickness nml 3. LV sys function low-nml with EF 50-55% 4. Indeterminate diastolic function 5. paradoxical septal motion c/w LBBB 6. RV sys function nml 7. No pulmo htn 8. C/w 2021, EF slightly improved Assessment and Plan Assessment Anesthesia Assessment: Chart Reviewed Documented by User: Arlin Borrero MD 06/25/24 10:34 [facility] Past Medical History Medical History Palpitations Dyslipidemia Cardiomyopathy Positive colorectal cancer screening using Cologuard test Fibromyalgia Anxiety Chronic headache disorder HTN (hypertension), benign Hypothyroid Asthma Family History Family history of problems with anesthesia: No Surgical History Surgical History Hx of cataract surgery History of nasal surgery History of cholecystectomy History of hysterectomy History of Problems with Anesthesia: No Social History Social History Are you a primary palliative care physician to a significant other at home: No Do you presently have visiting nurse or other home services: No Alcohol intake: never Patient Tobacco Use Status: Never used Tobacco Use of substances other than those prescribed or required for medical reasons: No Have you been hit, kicked, punched, or otherwise hurt by someone within the past year? If so, by whom?: No Are you DNR?: No Advance Directives: No Advance Directives Information Provided: Yes Recently lost weight without trying: No Nutrition Risks: No Nutritional Risk Meds Allergies Allergy/AdvReac Type Severity Reaction Status Date / Time seafood Allergy Intermediate Dizziness Verified 06/25/24 10:08 Home Medications ?Medication ?Instructions ?Recorded ?Confirmed ?Last Taken ?Type albuterol sulfate 90 mcg/actuation 1 inh inhalation QID 02/23/24 06/25/24 Unknown History aerosol inhaler (Ventolin HFA) aspirin 81 mg chewable tablet 81 mg PO DAILY 02/23/24 06/25/24 Unknown History atorvastatin 10 mg tablet 10 mg PO DAILY 02/23/24 06/25/24 Unknown History budesonide-formoterol HFA 80 1 puff inhalation DAILY 02/23/24 06/25/24 Unknown History mcg-4.5 mcg/actuation aerosol inhaler chlorthalidone 25 mg tablet 25 mg PO DAILY 02/23/24 06/25/24 Unknown History cholecalciferol (vitamin D3) 25 25 mcg PO DAILY 02/23/24 06/25/24 Unknown History mcg (1,000 unit) capsule (Vitamin D3) diltiazem HCl 360 mg 360 mg PO DAILY 02/23/24 06/25/24 06/25/24 History tablet,extended release 24 hr duloxetine 20 mg capsule,delayed 20 mg PO DAILY 02/23/24 06/25/24 Unknown History release hydroxyzine HCl 25 mg tablet 25 mg PO TID 02/23/24 06/25/24 Unknown History levothyroxine 75 mcg tablet 75 mcg PO DAILY 02/23/24 06/25/24 Unknown History lisinopril 40 mg tablet 40 mg PO DAILY 02/23/24 06/25/24 06/25/24 History loratadine 10 mg tablet 10 mg PO DAILY 02/23/24 06/25/24 Unknown History metoprolol tartrate 25 mg tablet 25 mg PO DAILY 02/23/24 06/25/24 06/25/24 History montelukast 10 mg tablet 10 mg PO DAILY 02/23/24 06/25/24 Unknown History Exam Airway Mallampati Class: II TM Dist: >3cm Neck ROM: Limited Heart: rrr Lungs: cta Assessment and Plan Assessment Anesthesia Assessment: Anesthesia Plan Discussed Final Anesthetic Review Family History of Problems with Anesthesia: No History of Problems with Anesthesia: No NPO: Yes ASA Class: III Final Preanesthetic Review: No Changes in Pt Med Stat, Meds/Allgs Chart Reviewed, Consent Obtained/Reviewed and Anes Risks/Benef Reviewed Patient Risk: Intermediate Procedure Risk: Low Anesthetic Plan Anesthetic Plan: MAC: Disposition: Standard PACU
[2024-06-25] VITALS (8 sets, daily range): BP systolic 118–129; BP diastolic 63–82; PULSE 69–81; RESP 13–21; TEMP 36.1–36.4; O2SAT 97–100; BMI 31.9
[2024-06-25] MEDS: Lactated Ringers 1,000 ML 100 ML IVCONT (10:26)
--- NOTE | 2024-06-25 10:44 | MHC.SHP ---
Pre-Procedural Eval Section A - 24 Hr Update-Section A only Date of Service: 06/25/24 Section B - Complete if H&P > 30 days Chief Complaint: GERD, pos cologuard Details of Present Illness: Positive colorectal cancer screening using Cologuard test Asthma Fibromyalgia Chronic headache disorder HTN (hypertension), benign Hypothyroid Anxiety Surgical History (Updated 02/23/24 @ 11:05 by Stella Walker) Hx of cataract surgery History of nasal surgery History of cholecystectomy History of hysterectomy Allergies: Allergies Allergy/AdvReac Type Severity Reaction Status Date / Time seafood Allergy Intermediate Dizziness Verified 06/25/24 10:08 Review of Systems Review of Systems Comment: Ten point ROS negative Exam Exam Comment: Gen appear: No acute distress HEENT: no icterus Chest: No overt resp distress Abd: soft, nontender, nondistended Psych: Stable affect, answering questions appropriately Neuro: A/Ox3 noted to move all extremities spontaneously Ext: no peripheral edema Plan Diagnosis/Plan: Unchanged I have reviewed the history and physical and performed a pertinent physical examination on my patient. No changes have occurred unless specified. Time Spent With Patient Time: Total time managing care of this patient today ____ minutes.
--- NOTE | 2024-06-25 11:23 | P.OPN-COLO_ITS ---
Colonoscopy Operative Note Operative Note Date of Service: 06/25/24 Narrative: Procedure: Upper endoscopy and colonoscopy Indication: GERD, positive cologuard Endoscopist: Martha Kang MD Anesthesia Provider: Swetha Doherty MD Anesthesia type: MAC Instrument: [id number]-H190 and [id number]-[id number] EGD Procedure:?? The procedure, indications, preparation and potential complications were reviewed with the patient, who indicated understanding and gave written informed consent to proceed. The endoscope was introduced through the mouth, and advanced to the 2nd part of the duodenum. The mucosa was carefully examined on slow withdrawal of the endoscope. The patient tolerated the procedure well. There were no immediate complications.? EGD Findings:? * Esophagus:? Normal esophageal mucosa. Z line is at 33 cm. There was a small hiatal hernia with the diaphragmatic hiatus at 36 cm. GE junction biopsies were taken for histology. * Stomach:? Erosions in the hiatal hernia as well as antrum were noted. Retroflexion was performed in the cardia that showed Hill grade 2 hiatal hernia. Random cold forceps biopsies were taken from the stomach. * Duodenum:? Normal duodenal mucosa. Cold forceps biopsies were taken from the duodenal bulb and 2nd portion of the duodenum to rule out celiac sprue. Colonoscopy Procedure:? The patient was then turned for the colonoscopy. A digital rectal exam was performed which was abnormal for external hemorrhoids.? A distal attachment cap was affixed to the tip of the scope and the colonoscope was then inserted through the anus and advanced through the colon and advanced to the cecum at 75.? Appendiceal orifice and ileocecal valve were identified. Mucosa was carefully examined under high definition white light as the instrument was slowly withdrawn in a retrograde panoramic fashion. Retroflexion was performed in rectum. The procedure was not difficult. The quality of the prep was BBPS: 2+2+2 = adequate Withdrawal time 10 minutes Limitations: No limitations Findings: Mucosa: Normal colon mucosa. Cold forceps biopsies were taken from the right and left side of the colon to rule out microscopic colitis. Protruding lesions: * One sessile polyp sized 4 mm in the rectum was removed with cold snare and retrieved. * Large internal hemorrhoids with stigmata of recent bleeding. Excavated lesions: * Mild diverticulosis of the sigmoid colon. Impression: 1. Normal esophageal mucosa (biopsy) 2. Gastritis (biopsy) 3. Hiatal hernia 4. Roberto Carlos erosions 5. Normal duodenum (biopsy) 6. Normal colon mucosa (biopsy) 7. Total 1 polyp removed 8. Diverticulosis 9. Internal and external hemorrhoids Recommendations:?? * Follow-up path results * Cont anti-secretory therapy * If H pylori +, will treat. If H pylori -, recommend breath test OFF ppi. * Repeat colonoscopy in 3-5 years due to quality of prep
== END 2024-06-25 12:45 | disposition home or self-care (01) ==
PROVIDERS: PCP Family Medicine; Visit Provider Internal Medicine
PROC: (CPT 45385; principal; 2024-06-25 12:00)
DX: R19.5 Other fecal abnormalities (principal); D12.8 Benign neoplasm of rectum; K57.30 Diverticulosis of large intestine without perforation or abscess without bleeding; K64.8 Other hemorrhoids; K64.4 Residual hemorrhoidal skin tags; K21.9 Gastro-esophageal reflux disease without esophagitis; R10.13 Epigastric pain; R14.0 Abdominal distension (gaseous); K29.50 Unspecified chronic gastritis without bleeding; K25.9 Gastric ulcer, unspecified as acute or chronic, without hemorrhage or perforation; K44.9 Diaphragmatic hernia without obstruction or gangrene; I10 Essential (primary) hypertension; J45.909 Unspecified asthma, uncomplicated; E03.9 Hypothyroidism, unspecified; M85.80 Other specified disorders of bone density and structure, unspecified site; M79.7 Fibromyalgia; Z98.890 Other specified postprocedural states; Z79.899 Other long term (current) drug therapy
CPT/HCPCS: 45385; 45380; 43239; 88305; 88313; 88342; J2704

== ENCOUNTER → 2024-06-25 09:32 | Outpatient (BNV) | payer OTHER, SELFPAY | PROVIDERS: PCP Family Medicine; Visit Provider Internal Medicine | DX: K21.9 Gastro-esophageal reflux disease without esophagitis (principal); K44.9 Diaphragmatic hernia without obstruction or gangrene; Z12.11 Encounter for screening for malignant neoplasm of colon; D12.8 Benign neoplasm of rectum; K64.8 Other hemorrhoids; D12.2 Benign neoplasm of ascending colon; D12.4 Benign neoplasm of descending colon | CPT/HCPCS: 43239; 45380; 45385 ==

== ENCOUNTER 2024-07-16 10:41 | Outpatient (AMB) | payer OTHER, SELFPAY ==
[2024-07-16 11:25] VITALS: BP 122/76; PULSE 72
--- NOTE | 2024-07-16 11:25 | AM.OFFVISNUR ---
Vital Signs 07/16/24 11:25 BP 122/76 Blood Pressure Location Lt brachial Position Sitting Pulse 72 Intake Visit Reasons: H Pylori, holding nexium and pepcid. Intake Note: Patient presents for collection of H Pylori breath test. Patient has been fasting for 1 hour (nothing to eat, drink, no chewing gum or smoking) has not taken any antacid medication for at least 2 weeks and has no allergies to artificial sweeteners.?? Relocation Associate Required: No Accompanied by: Spouse Allergies seafood Allergy (Intermediate, Verified 07/16/24 11:25) Dizziness Nursing Note Patient presents for collection of H Pylori breath test. Patient has been fasting for 1 hour (nothing to eat, drink, no chewing gum or smoking) has not taken any antacid medication for at least 2 weeks and has no allergies to artificial sweeteners.?? Assessment & Plan Assessment & Plan (1) Dyspepsia: Code(s): R10.13 - Epigastric pain Plan Patient presents for collection of H Pylori breath test. Patient has been fasting for 1 hour (nothing to eat, drink, no chewing gum or smoking) has not taken any antacid medication for at least 2 weeks and has no allergies to artificial sweeteners.???This test checks for an overgrowth of bacteria in your stomach. We all have bacteria but some may have more than others. It is treatable. if the test comes back negative there is nothing else to do. If the test result is positive we will treat you with 2 antibiotics and a medication to decrease the acid in your stomach (PPI) for 2 weeks. Two weeks after you have completed the treatment we will retest you to make sure the overgrowth has resolved. Patient Instructions: Process for specimen collection and reason for testing was explained to the patient. Specimen collection. Patient instructed to take a deep breath and then exhale into the blue bag, filling it up as much as possible. Patient instructed to drink a mixture of water and the artificial sweetener with a straw. A 15 minute wait period was observed. Patient instructed to take a deep breath and then exhale into the pink bag, filling it up as much as possible.??
== END 2024-07-16 11:33 | disposition home or self-care (01) ==
PROVIDERS: PCP Family Medicine; Visit Provider Nurse Practitioner Family
DX: R10.13 Epigastric pain (principal)

== ENCOUNTER 2024-07-16 10:41 | Outpatient (REF) | payer OTHER, SELFPAY ==
[2024-07-17 14:44] LABS: H Pylori Breath Test Negative (Negative)
== END 2024-07-16 10:42 | disposition home or self-care (01) ==
LOC: HO.LNP 10:41
PROVIDERS: PCP Family Medicine; Visit Provider Nurse Practitioner Family
DX: K21.9 Gastro-esophageal reflux disease without esophagitis (principal); R10.13 Epigastric pain
CPT/HCPCS: 83013; 99211

== ENCOUNTER 2024-08-24 10:05 | Outpatient (REF) | payer OTHER, SELFPAY ==
--- NOTE | ~2024-08-24 | MM_ITS ---
EXAMINATION: MM SCREENING DIGITAL BREAST TOMOSYNTHESIS, BILATERAL CLINICAL INFORMATION: Screening. Asymptomatic. COMPARISON: Mammography: Comparison is made with available priors TECHNIQUE: Digital breast mammography with tomosynthesis is performed in both the craniocaudal and mediolateral oblique views along with computer-aided detection (CAD). FINDINGS: The breasts are heterogeneously dense, which may obscure small masses (ACR BI-RADS breast composition Category c). There are no significant masses, abnormal calcifications, or other abnormalities. MM/MM tomosynthesis screening BI IMPRESSION: No mammographic evidence of malignancy. ASSESSMENT: BI-RADS BI-RADS 1 - Negative RECOMMENDATION: Routine annual mammography screening. 1 year F/U This examination should not preclude the clinical evaluation of a suspicious palpable abnormality. This patient's information was entered into a reminder system with a target due date for their next mammogram. Electronically signed by: Zuly Pena DO 09/01/2024 01:16 PM [facility]
--- NOTE | ~2024-08-24 | MM_ITS ---
EXAMINATION: BONE DENSITOMETRY CLINICAL INDICATION: Osteopenia. COMPARISON: Baseline BD dated 02/26/2022. TECHNIQUE: Using a [employer] DXA System (software version: 13.1) manufactured by [employer], dual-energy x-ray absorptiometry was performed of the lumbar spine and left hip. The images are of good technical quality. Summary results are attached. FINDINGS: LEFT FEMUR, NECK: Current: BMD 0.831 g/cm2, Z-score 0.1, T-score -1.5, osteopenia. Baseline: BMD 0.738 g/cm2. LEFT FEMUR, TOTAL: Current: BMD 0.886 g/cm2, Z-score 0.4, T-score -1.0, normal, 11.3% increase from baseline (<5% change is not significant). Baseline: BMD 0.796 g/cm2. AP SPINE L1-L4: Current: BMD 0.899 g/cm2, Z-score -0.8, T-score -2.3, osteopenia, 6.5% decrease from baseline (<5% change is not significant). Baseline: BMD 0.962 g/cm2. IDENTIFIED RISK FACTORS: Early menopause, secondary osteoporosis, height loss, hysterectomy, low calcium intake, osteoporosis. HISTORY OF FRACTURE: None listed. MEDICATIONS: Calcium supplements or multivitamin, vitamin D. MM/XR DEXA axial skeleton IMPRESSION: 1. DIAGNOSIS: Osteopenia based on the lowest T-score value of -2.3 in the lumbar spine applying World Health Organization criteria. 2. 10-YEAR FRACTURE RISK PREDICTION, FRAX: Major osteoporotic fracture (clinical spine, forearm, hip or shoulder) 5.3%. Hip fracture 0.7%. 3. Treatment Recommendations: NOF guidelines recommend consideration for treatment in postmenopausal women and men age 50 and older presenting with the following: -A hip or vertebral (clinical or morphometric) fracture. -T-score less than or equal to -2.5 at the femoral neck or spine after appropriate evaluation to exclude secondary causes. -Low bone mass at the hip or spine and a 10-year fracture probability by FRAX of greater than or equal to 3% for hip fracture or greater than or equal to 20% for major osteoporotic fracture based on the [place] adapted WHO algorithm. 4. Other Recommendations: All treatment decisions require clinical judgment and consideration of individual patient factors, including patient preferences, comorbidities, previous drug use, risk factors not captured in the FRAX model (e.g. frailty, falls, vitamin D deficiency, increased bone turnover, interval significant decline in bone density) and possible under or overestimation of fracture risk by FRAX. Additional medical evaluation for secondary cause of low bone mineral density may be appropriate. FUTURE SCAN RECOMMENDATION: People with diagnosed cases of osteoporosis or at high risk for fracture should have regular bone mineral density tests. For patients eligible for Medicare, routine testing is allowed once every 2 years. The testing frequency can be increased to one year for patients who have rapidly progressing disease, those who are receiving or discontinuing medical therapy to restore bone mass, or have additional risk factors. Electronically signed by: Brad Warren MD 08/24/2024 01:26 PM [facility]
== END 2024-08-24 10:06 | disposition home or self-care (01) ==
LOC: HO.MAMMO 10:05
PROVIDERS: PCP Family Medicine; Visit Provider Family Medicine
DX: Z12.31 Encounter for screening mammogram for malignant neoplasm of breast (principal); Z13.820 Encounter for screening for osteoporosis; M85.80 Other specified disorders of bone density and structure, unspecified site; Z78.0 Asymptomatic menopausal state
CPT/HCPCS: 77063; 77067; 77080

== ENCOUNTER → 2024-08-24 10:45 | Outpatient (BNV) | payer OTHER, SELFPAY | PROVIDERS: PCP Family Medicine; Visit Provider Internal Medicine | DX: Z12.31 Encounter for screening mammogram for malignant neoplasm of breast (principal) | CPT/HCPCS: 77063; 77067 ==

== ENCOUNTER 2024-10-25 11:49 | Outpatient (REF) | payer OTHER, SELFPAY ==
[2024-10-25 14:07] LABS: Estimated Average Glucose 128 mg/dL; Hemoglobin A1c % 6.1 % (<6.0); Total Hemoglobin (HGBA1C) 3283.2738 umol/L
[2024-10-25 14:16] LABS: Alanine Aminotransferase 21 U/L (0-31); Albumin Level 4.2 g/dL (3.5-5.0); Alkaline Phosphatase 212 U/L (39-117); Anion Gap 11 (12-20); Aspartate Amino Transferase 20 U/L (5-31); Bilirubin Total 0.4 mg/dL (0.0-1.0); Blood Urea Nitrogen 19 mg/dL (9-16); Calcium 9.9 mg/dL (8.4-10.2); Carbon Dioxide 27 mmol/L (22-29); Chloride 103 mmol/L (96-108); Cholesterol 127 mg/dL (<200); Estimated Glomerular Filt Rate 44; Glucose Random 93 mg/dL (60-115); HDL Cholesterol 39 mg/dL (>40); LDL Cholesterol Calculated 63 mg/dL (<100); Potassium 4.3 mmol/L (3.3-5.1); Sodium 137 mmol/L (135-145); Total Protein 8.5 g/dL (6.5-8.0); Triglycerides 129 mg/dL (<150)
[2024-10-25 14:30] LABS: TSH reflex Free T4 0.15 uIU/mL (0.32-4.0)
[2024-10-25 16:16] LABS: Free T4 (Free Thyroxine) 1.02 ng/dL (0.71-1.85)
[2024-10-25 16:41] LABS: Reflex LDLD? No
== END 2024-10-25 11:50 | disposition home or self-care (01) ==
LOC: HO.HHCL 11:49
PROVIDERS: Visit Provider Family Medicine
DX: I10 Essential (primary) hypertension (principal); R73.03 Prediabetes; E06.3 Autoimmune thyroiditis
CPT/HCPCS: 36415; 80053; 80061; 83036; 84439; 84443

== ENCOUNTER 2024-10-28 15:04 | Outpatient (REF) | payer OTHER, SELFPAY ==
[2024-10-28 17:23] LABS: Creatinine Urine 94.18 mg/dL; Microalbum/Creatinine Ratio Ur 7.4 ug/mg cr (<30)
== END 2024-10-28 15:05 | disposition home or self-care (01) ==
LOC: HO.HHCL 15:04
PROVIDERS: Visit Provider Family Medicine
DX: I10 Essential (primary) hypertension (principal)
CPT/HCPCS: 82043; 82570

== ENCOUNTER 2024-11-11 09:24 | Outpatient (REF) | payer OTHER, SELFPAY ==
[2024-11-11 12:11] LABS: TSH reflex Free T4 0.04 uIU/mL (0.32-4.0)
[2024-11-11 12:46] LABS: Free T4 (Free Thyroxine) 0.89 ng/dL (0.71-1.85)
== END 2024-11-11 09:25 | disposition home or self-care (01) ==
LOC: HO.HHCL 09:24
PROVIDERS: Visit Provider Family Medicine
DX: E06.3 Autoimmune thyroiditis (principal)
CPT/HCPCS: 36415; 84439; 84443

== ENCOUNTER 2024-12-03 10:54 | Outpatient (AMB) | payer OTHER, SELFPAY ==
--- NOTE | 2024-12-03 11:02 | A.OFFVIS_ITS ---
Vital Signs 12/03/24 11:25 Height 4 ft 11 in Weight 162 lb 11.218 oz BMI 32.9 BP 134/72 Blood Pressure Location Rt brachial Position Sitting Pulse 86 Pulse Source Pulse Oximeter Pulse Oximetry (%) 99 Oxygen Delivery Method Room Air Intake Visit Reasons: Follow up Dyspepsia Intake Note: ESTABLISHED PATIENT for mgmt of dyspepsia Chief Complaint; C/O worsening reflux which has not responded to treatment to this point. Pt also reports RUQ pain intermittently and constipation. Pt denies any additional concerns at this time. Pt stopped taking senna as she did not have a good reaction to it. Pt reports however that she is unable to have consistent BM without laxatives. Layaway Clerk Required: Yes Layaway Clerk Name: Yaakov [id number] Information Interpreted: non-clinical & clinical Accompanied by: Self / Same As Patient Allergies seafood Allergy (Intermediate, Verified 07/16/24 11:25) Dizziness senna Adverse Reaction (Mild, Verified 12/03/24 11:17) Unknown HPI HPI Follow up Dyspepsia: Details: LAST VISIT Positive colorectal cancer screening using Cologuard test Dyspepsia GERD (gastroesophageal reflux disease) Postprandial abdominal bloating Epigastric abdominal pain Plan Will book patient for procedure, however patient reports to have epigastric pain postprandially. Currently on pantoprazole reports that it has not working. Patient is taking every day before breakfast. Continues to have postprandial epigastric pain dyspepsia. Will send her to rule out celiac, H pylori. Patient will be check for vitamin B12, folate and vitamin-D levels. Will check her thyroid as well. Will change her PPI to Nexium. Patient will also take famotidine at bedtime. Discussed with patient avoiding dietary triggers and late night snacking. Staying upright for minimal 3 hours after meals discussed with patient. Patient currently is not moving her bowels well will start her on MiraLax in the morning and senna in the evening. Patient will return in 5-6 weeks to discuss going for colonoscopy, sooner if her symptoms will get worse or she will experience any additional GI concerning symptoms. Patient is agreeable to this plan and verbalizes understanding of instructions. She was given the opportunity to ask questions and all questions answered. ? Thank you for allowing me to participate in her care Orders Orders Transglutaminase Ab IgG Today R10.9 Vitamin B12 and Folate Today R19.7 H pylori Ag Stool Today K21.9 Transglutaminase IgA Today R10.9 TSH reflex Free T4 Today K59.00 Vitamin D 25-OH (D2 and D3) Today E55.9 Medications New esomeprazole magnesium (Nexium) 40 mg PO DAILY 90 caps 5RF K21.9 famotidine 40 mg PO BEDTIME 30 tabs 3RF K21.9 polyethylene glycol 3350 (Miralax) 17 grams PO DAILY 510 grams 2RF sennosides (Natural Senna Laxative) 17.2 mg (2 x 8.6 mg) PO BEDTIME 60 tabs 3RF constipation K59.00 sennosides (Natural Senna Laxative) 17.2 mg (2 x 8.6 mg) PO BEDTIME 60 tabs 3RF constipation K59.00 esomeprazole magnesium (Nexium) 40 mg PO DAILY 90 caps 5RF K21.9 famotidine 40 mg PO BEDTIME 30 tabs 3RF K21.9 polyethylene glycol 3350 (Miralax) 17 grams PO DAILY 510 grams 2RF UPPER ENDOSCOPY AND COLONOSCOPY EGD Findings:? * Esophagus:? Normal esophageal mucosa. Z line is at 33 cm. There was a small hiatal hernia with the diaphragmatic hiatus at 36 cm. GE junction biopsies were taken for histology. * Stomach:? Erosions in the hiatal hernia as well as antrum were noted. Retroflexion was performed in the cardia that showed Hill grade 2 hiatal h ernia. Random cold forceps biopsies were taken from the stomach. * Duodenum:? Normal duodenal mucosa. Cold forceps biopsies were taken from the duodenal bulb and 2nd portion of the duodenum to rule out celiac sprue. Colonoscopy Procedure:? The patient was then turned for the colonoscopy. A digital rectal exam was performed which was abnormal for external hemorrhoids.? A distal attachment cap was affixed to the tip of the scope and the colonoscope was then inserted through the anus and advanced through the colon and advanced to the cecum at 75.? Appendiceal orifice and ileocecal valve were identified. Mucosa was carefully examined under high definition white light as the instrument was slowly withdrawn in a retrograde panoramic fashion. Retroflexion was performed in rectum. The procedure was not difficult. The quality of the prep was BBPS: 2+2+2 = adequate Withdrawal time 10 minutes Limitations: No limitations Findings: Mucosa: Normal colon mucosa. Cold forceps biopsies were taken from the right and left side of the colon to rule out microscopic colitis. Protruding lesions: * One sessile polyp sized 4 mm in the rectum was removed with cold snare and retrieved. * Large internal hemorrhoids with stigmata of recent bleeding. Excavated lesions: * Mild diverticulosis of the sigmoid colon. Impression: 1. Normal esophageal mucosa (biopsy) 2. Gastritis (biopsy) 3. Hiatal hernia 4. Roberto Carlos erosions 5. Normal duodenum (biopsy) 6. Normal colon mucosa (biopsy) 7. Total 1 polyp removed 8. Diverticulosis 9. Internal and external hemorrhoids Recommendations:?? * Follow-up path results * Cont anti-secretory therapy * If H pylori +, will treat. If H pylori -, recommend breath test OFF ppi. * Repeat colonoscopy in 3-5 years due to quality of prep PATHOLOGY RESULTS Addendum Addendum #1 Immunostain for H. pylori on B is negative. Additional level with AB/PAS on C is negative for intestinal metaplasia. Controls stain appropriately. Electronically Signed By: Jacquie Macario 07/01/24 1038 Diagnosis A. Duodenum, biopsy: Duodenal mucosa with predominantly preserved villi and mild features of nonspecific/peptic duodenitis. B. Stomach, random, biopsy: Gastric antral and body mucosa with congestion, mild reactive changes, and minimal chronic inactive gastritis; negative for intestinal metaplasia and dysplasia. C. Gastroesophageal junction, biopsy: Squamous mucosa with hyperplasia and focal intraepithelial eosinophils (up to 3 per high-power field) consistent with esophagitis, and rare columnar epithelium; negative for intestinal metaplasia on initial levels; negative for dysplasia. D. Colon, rectal polyp: Tubular adenoma; negative for high-grade dysplasia and carcinoma. E. Colon, right, biopsy: Colonic mucosa with no specific change; no evidence of microscopic colitis. F. Colon, left, biopsy: Colonic mucosa with no specific change; no evidence of microscopic colitis. Comment: (B): Immunostain for H. pylori pending; addendum to follow. (C): Additional level with AB/PAS stain pending; addendum to follow TODAY'S VISIT Patient is here today for follow-up and to discuss upper endoscopy and colonoscopy results. Patient reports occasional acid reflux depending on what she eats. Patient takes Nexium in the morning and famotidine at bedtime. For the most part her symptoms are suppressed. Patient reports that acid reflux mostly with pizza or spaghetti sauce. Patient denies any ill effects from the prep, anesthesia or procedure itself. Upper endoscopy and colonoscopy results discussed with patient. Patient had suboptimal prep, will need to repeat colonoscopy in 3 years. One tubular adenoma found without high-grade dysplasia or carcinoma. Patient reports that she is not moving her bowels as well without taking laxative. Patient bought [id number] laxative and reports that they are not always working for her. Patient reports abdominal bloating postprandially. Patient denies melena, hematochezia, unintentional weight loss or ribbon like stools. [facility] Medical History Palpitations Dyslipidemia Cardiomyopathy Positive colorectal cancer screening using Cologuard test Fibromyalgia Anxiety Chronic headache disorder HTN (hypertension), benign Hypothyroid Asthma Surgical History Hx of cataract surgery History of nasal surgery History of cholecystectomy History of hysterectomy Social History Are you a primary wound care center consultant to a significant other at home: No Do you presently have visiting nurse or other home services: No Alcohol intake: never Patient Tobacco Use Status: Never used Tobacco Review of Systems Const Denies weight gain and Denies weight loss ENT Reports no additional complaints, Denies dysphagia and Denies odynophagia Card Reports no additional complaints Resp Reports no additional complaints GI Denies abdominal pain, Denies belching, Denies melena, Denies bloating, Denies change in bowel habits, Denies dysphagia, Denies excessive flatus, Denies dyspepsia, Denies heartburn, Denies diarrhea, Denies loose stools, Denies nause a, Denies odynophagia and Denies vomiting Musc Reports no additional complaints Neuro Reports no additional complaints Psych Reports no additional complaints Endo Reports no additional complaints Physical Exam Const General: healthy appearing, no acute distress and well developed Nutritional Appearance: well nourished Orientation/consciousness: patient oriented x3 Resp Effort & Inspection: normal respiratory effort, able to speak in complete sentences, no tracheal deviation and symmetric chest movement Auscultation: clear to auscultation bilaterally Cardio Rate: regular rate GI Inspection: Yes normal to inspection and No distended Palpation (GI): Soft to palpation, not firm, nontender and No hepatosplenomegaly present Auscultation: normal bowel sounds General: Yes no CVA tenderness Back/Spine/Pelvis Back: no CVA tenderness Skin General skin exam: elasticity normal, turgor normal and dry skin Neuro General: patient oriented x3 Psych Appearance: grossly normal Mental Status: mental status grossly normal Results Reviewed Results Reviewed: Laboratory Tests 02/23/24 12:45 Vitamin B12 258 25-OH Vitamin D Total 33 Folate 6.4 Tiss Transglutamin IgA <1.0 Assessment & Plan Assessment & Plan (1) Dyspepsia: Code(s): R10.13 - Epigastric pain (2) GERD (gastroesophageal reflux disease): Code(s): K21.9 - Gastro-esophageal reflux disease without esophagitis Qualifiers: Esophagitis presence: esophagitis presence not specified Qualified Code(s): K21.9 - Gastro-esophageal reflux disease without esophagitis (3) Postprandial abdominal bloating: Code(s): R14.0 - Abdominal distension (gaseous) (4) Epigastric abdominal pain: Code(s): R10.13 - Epigastric pain (5) Constipation: Code(s): K59.00 - Constipation, unspecified Qualifiers: Constipation type: slow transit constipation Qualified Code(s): K59.01 - Slow transit constipation Plan One tubular adenoma without high-grade dysplasia or carcinoma found. Patient had suboptimal prep and will need to return for colonoscopy in 3 years. Patient will continue taking Nexium and famotidine. Patient admits that she has acid reflux with food like spaghetti sauce or pizza. Patient was encouraged to avoid any dietary triggers and late night snacking. Staying upright for minimum 3 hours after meals discussed with patient. If her symptoms will continue or worsen she will call our office. Will have patient do H pylori breath test. Biopsy did not show H pylori, however if patient continues symptoms we should get her tested while off PPI. Patient will return in our office in 6 months sooner on as needed basis. Patient is agreeable to this plan and verbalizes understanding of instructions. She was given the opportunity to ask questions and all questions answered. Thank you for allowing me to participate in her care Medications: New bisacodyl (Dulcolax (bisacodyl)) 10 mg (2 x 5 mg) PO BEDTIME 180 tabs 4RF Refilled esomeprazole magnesium (Nexium) 40 mg PO DAILY 90 caps 5RF K21.9 - Gastro- esophageal reflux disease without esophagitis famotidine 40 mg PO BEDTIME 30 tabs 3RF K21.9 - Gastro-esophageal reflux disease without esophagitis Discontinued sennosides (Natural Senna Laxative) Discontinued Reason: Doctor's Order 17.2 mg (2 x 8.6 mg) PO BEDTIME 60 tabs 3RF constipation K59.00 - Constipation, unspecified Coding Level of Care Code Est Pt Level 4 (04684) Complex EM visit Add On G2211 Diagnoses Dyspepsia R10.13 Gastroesophageal reflux disease, unspecified whether esophagitis present K21.9 Esophagitis presence: esophagitis presence not specified Postprandial abdominal bloating R14.0 Epigastric abdominal pain R10.13 Slow transit constipation K59.01 Constipation type: slow transit constipation Time Spent (min) 40 Comment 25 minutes spent with patient and additional 10 minutes spent reviewing her records
[2024-12-03 11:25] VITALS: BP 134/72; PULSE 86; O2SAT 99; BMI 32.9
--- OUTSIDE RECORDS SUMMARY | 2024-12-03 11:51 | XMS_ITS | Encounter Summary ---
Author Organization [employer] Address [address] [place] [address] Care Team Providers Care Cnc Mill Operator Name Role Phone Azra Vásquez MD Primary Care Provider [phone] Joe Sneed PharmD Unavailable [phone] Encounter Details Date Type Department Care Team (Late st Contact Info) Description 11/11/2024 Orders Only [facility] [address] [place], [place] [phone] Azra Vásquez MD [address] [place], [place] [phone] Social History Tobacco Use Types Packs/Day Years Used Date Smoking Tobacco: Never Passive Smoke Exposure: Never Smokeless Tobacco: Never Alcohol Use Standard Drinks/Week Comments Never 0 (1 standard drink = 0.6 oz pur e alcohol) Depression Answer Date Recorded Patient Health Questionnaire-9 Score 27 10/25/2024 Patient Health Questionnaire-9 Score 27 10/25/2024 Last PHQ-9: Questionnaire Data Not on file 0 10/25/2024 Housing Stability Answer Date Recorded What is your housing situation today? I have josie alcazar 02/26/[address] you li ve. Do you have problems with any of the following? None of the above 02/26/2024 Food Insecurity Answer Date Recorded Within the past 12 months, y ou worried that your food would run out before you got money to buy more: Never True 02/26/2024 Within the past 12 months,th e food you bought just didn't last and you didn't have enough money to get more: Never True 06/2024 Transportation Answer Date Recorded In the past 12 months, has l ack of transportation kept you from medical appts, meetings, work or from getting things needed for daily living? No 02/26/2024 Utilities Answer Date Recorded In the past 12 months, has t he electric, gas, oil or water company threatened to shut off services in your home? No 02/26/2024 Depression Answer Date Recorded Patient Health Questionnaire-2 Score 6 10/25/2024 Comments Unknown Sex and Gender Information Value Date Recorded Sex Assigned at Female 08/19/2022 10:15 AM EDT Legal Sex Female 10:15 AM EDT Gender Identity Female 08/19/2022 10:15 AM EDT Sexual Orientation Straight 08/19/2022 10 :15 AM EDT documented as of this encounter Plan of Treatment Upcoming Encounters Date Type Department Care Team (Late st Contact Info) Description 12/13/2024 11:00 AM EST Medication Management [facility] [address] [place] [phone] Joe Sneed, PharmD [address] [place] [phone] 01/18/2025 11:30 AM EDT Office Visit [facility] [address] [place] [phone] Azra Vásquez MD [address] [place] [address] documented as of this encounter Goals Goal Patient Goal Type Associated Problems Recent Progress Patient-Stated? Author Blood Pressure < 150/90 Blood Pressure 156/78(2024 11:30 AM EST) No Joe Sneed, PharmSimona Note: Per JNC-8 (Age 60+, no history of CKD or DM) documented as of this encounter Procedures Procedure Name Priority Date/Time Associated Diagnosis Comments T4, FREE Routine 11/11/2024 9:25 AM EST documented in this encounter Results * T4, Free (11/11/2024 9:25 AM EST) Free T4 (Free Thyroxine) 0.89 0.71 - 1.85 ng/dL [facility] 11/11/2024 9:25 AM EST 11/11/2024 11:20 AM EST Azra Vásquez MD LAB BLOOD ORDERABLES Final Resul t [facility] [address] [place] [address] [phone] documented in this encounter Visit Diagnoses Not on filedocumented in this encounter Additional Health Concerns Assessment Noted Time PHQ-9 Depression Total Score: 27 025 12:14 PM EST documented as of this encounter Care Teams Cnc Mill Operator Relationship Specialty Start Date End Date Azra Vásquez MD [address] [place] [phone] PCP - General Family Medicine 10/20/18 Joe Sneed, VinnyD [address] [place] [phone] Pharmacist Internal Medicine 02/10/24 documented as of this encounter
--- OUTSIDE RECORDS SUMMARY | 2024-12-03 11:51 | XMS_ITS | Encounter Summary ---
Author Organization [employer] Address [address] [place] [address] Care Team Providers Care Putty And Caulking Supervisor Name Role Phone Azra Vásquez MD Primary Care Provider [phone] Joe Sneed PharmD Unavailable [phone] Reason for Visit * Reason Comments Med Refill Encounter Details Date Type Department Care Team ([facility] st Contact Info) Description 01/31/2024 Refill [facility] [address] [place], [place] [phone] Monroe Morel MD [address] [place], [place] [phone] Social History Tobacco Use Types Packs/Day Years Used Date Smoking Tobacco: Never Passive Smoke Exposure: Never Smokeless Tobacco: Never Alcohol Use Standard Drinks/Week Comments Never 0 (1 standard drink = 0.6 oz pur e alcohol) Depression Answer Date Recorded Patient Health Questionnaire-9 Score 24 12/01/2023 Patient Health Questionnaire-9 Score 24 12/01/2023 Last PHQ-9: Questionnaire Data Not on file 0 12/01/2023 Housing Stability Answer Date Recorded What is your housing situation today? I have josie alcazar 08/08/[address] you li ve. Do you have problems with any of the following? None of the above 08/08/2023 Food Insecurity Answer Date Recorded Within the past 12 months, y ou worried that your food would run out before you got money to buy more: Never True 08/08/2023 Within the past 12 months,th e food you bought just didn't last and you didn't have enough money to get more: Never True Transportation Answer Date Recorded In the past 12 months, has l ack of transportation kept you from medical appts, meetings, work or from getting things needed for daily living? No 08/08/2023 Utilities Answer Date Recorded In the past 12 months, has t he electric, gas, oil or water company threatened to shut off services in your home? No 08/08/2023 Depression Answer Date Recorded Patient Health Questionnaire-2 Score 6 12/01/2023 Comments Unknown Sex and Gender Information Value [...] Description 12/13/2024 11:00 AM EST Medication Management [facility] [address] [place] [phone] Joe Sneed, Uyen [address] [place] [phone] 01/18/2025 11:30 AM EDT Office Visit [facility] [address] [place] [phone] Azra Vásquez MD [address] [place] [phone] documented as of this encounter Goals Goal Patient Goal Type Associated Problems Recent Progress Patient-Stated? Author Blood Pressure < 150/90 Blood Pressure 156/78(2024 11:30 AM EST) No Joe Sneed, PharmD Note: Per JNC-8 (Age 59+, no history of CKD or DM) documented as of this encounter Visit Diagnoses Not on filedocumented in this encounter Additional Health Concerns Assessment Noted Time PHQ-9 Depression Total Score: 24 024 11:08 AM EST documented as of this encounter Care Teams Putty And Caulking Supervisor Relationship Specialty Start Date End Date Azra Vásquez MD [address] [place] [phone] PCP - General Family Medicine 10/20/18 Joe Sneed, PharmD [address] [place] [phone] Pharmacist Internal Medicine 02/10/24 documented as of this encounter
--- OUTSIDE RECORDS SUMMARY | 2024-12-03 11:51 | XMS_ITS | Encounter Summary ---
Author Organization [employer] [facility] Address [address] [place] [address] Care Team Providers Care Lead Radiation Therapist Name Role Phone Azra Vásquez MD Primary Care Provider [phone] Joe Sneed PharmD Unavailable [phone] Reason for Visit * Reason Comments Med Refill Encounter Details Date Type Department Care Team (Late st Contact Info) Description 12/25/2022 Refill [facility] [address] [place] [address] [phone] Azra Vásquez MD [address] [place] [address] Social History Tobacco Use Types Packs/Day Years Used Date Smoking Tobacco: Never Assessed Comments Unknown Sex and Gender Information Value [...] 11:00 AM EST Medication Management [facility] [address] [place] [phone] Joe Sneed, PharmD [address] [place] [phone] 01/18/2025 11:30 AM EDT Office Visit [facility] [address] [place] [phone] Azra Vásquez MD [address] [place], [place] [phone] documented as of this encounter Visit Diagnoses Not on filedocumented in this encounter Care Teams Lead Radiation Therapist Relationship Specialty Start Date End Date Azra Vásquez MD [address] [place] [address] [phone] PCP - General Family Medicine 10/20/18 Joe Sneed, VinnyD [address] [place] [phone] Pharmacist Internal Medicine 02/10/24 documented as of this encounter
--- OUTSIDE RECORDS SUMMARY | 2024-12-03 11:51 | XMS_ITS | Encounter Summary ---
Author Organization [employer] [facility] Address [address] [place] [address] Care Team Providers Care Home Organizer Name Role Phone Azra Vásquez MD Primary Care Provider [phone] Joe Sneed PharmD Unavailable [phone] Reason for Visit * Reason Comments Med Refill Encounter Details Date Type Department Care Team (Late st Contact Info) Description 11/21/2022 Refill [facility] [address] [place] [address] [phone] Azra Vásquez MD [address] [place] [phone] Social History Tobacco Use Types Packs/Day Years [...] Description 12/13/2024 11:00 AM EST Medication Management [facility] [address] [place] [phone] Joe Sneed, PharmD [address] [place] [address] 01/18/2025 11:30 AM EDT Office Visit [facility] [address] [place] [phone] Azra Vásquez MD [address] [place], [place] [phone] documented as of this encounter Visit Diagnoses Not on filedocumented in this encounter Care Teams Home Organizer Relationship Specialty Start Date End Date Azra Vásquez MD [address] [place] [address] [phone] PCP - General Family Medicine 10/20/18 Joe Sneed, VinnyD [address] [place] [phone] Pharmacist Internal Medicine 02/10/24 documented as of this encounter
--- OUTSIDE RECORDS SUMMARY | 2024-12-03 11:51 | XMS_ITS | Encounter Summary ---
Author Organization [employer] Address [address] 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 documented in this encounter Results * (ABNORMAL) TSH with Reflex to Free T4 (11/11/2024 9:25 AM EST) TSH reflex Free T4 0.04(L) 0.32 - 4.0 uIU/mL [facility] Blood 11/11/2024 9:25 AM EST 11/11/2024 11:20 AM EST us Azra Vásquez MD LAB BLOOD ORDERABLES Final Resul t [facility] [address] [place] [phone] documented in this encounter Visit Diagnoses Diagnosis 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
--- OUTSIDE RECORDS SUMMARY | 2024-12-03 11:51 | XMS_ITS | Encounter Summary ---
Author Organization [employer] [facility] Address [address] [facility] 7t [place] [address] Care Team Providers Care Sandblast Or Shotblast Equipment Tender Name Role Phone Azra Vásquez MD Primary Care Provider [phone] Joe Sneed PharmD Unavailable [phone] Encounter Details Date Type Department Care Team (Late st Contact Info) Description 11/18/2022 Orders Only [address] [address] Olimpia Damon LPN Social History Tobacco Use Types Packs/Day Years [...] Description 12/13/2024 11:00 AM EST Medication Management [address] [address] Joe Sneed, PharmD [address] [place] [address] 01/18/2025 11:30 AM EDT Office Visit [facility] [address] [place] [address] Azra Vásquez MD [address] [place] [address] documented as of this encounter Visit Diagnoses Not on filedocumented in this encounter Care Teams Sandblast Or Shotblast Equipment Tender Relationship Specialty Start Date End Date Azra Vásquez MD [address] [place] [address] PCP - General Family Medicine 10/20/18 Joe Sneed, VinnyD [address] [place] [address] Pharmacist Internal Medicine 02/10/24 documented as of this encounter
--- OUTSIDE RECORDS SUMMARY | 2024-12-03 11:52 | XMS_ITS | Encounter Summary ---
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); Low TSH level Social History Tobacco Use Types Packs/Day Years [...] Description 12/13/2024 11:00 AM EST Medication Management [address] [address] Joe Sneed, PharmSimona [address] [place] [address] 01/18/2025 11:30 AM EDT Office Visit [address] [address] Azra Vásquez MD [address] [place] [address] Scheduled Orders Name Type Priority Associated Diagnoses Orde r Schedule TSH Lab Routine 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 Low TSH level Expected: 12/23/2024, Expires: 11/11/2025 T4, Free Lab Routine 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 Low TSH level Expected: 12/23/2024, Expires: 11/11/2025 documented as of this encounter Goals Goal Patient Goal Type Associated Problems Recent Progress Patient-Stated? Author Blood Pressure < 150/90 Blood Pressure 156/78(2024 11:30 AM EST) Joe Rice, PharmSimona Note: Per JNC-8 (Age 59+, no history of CKD or DM) documented as of this encounter Visit Diagnoses Diagnosis 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- Primary Low TSH level documented in this encounter Additional Health Concerns Assessment Noted Time PHQ-9 Depression Total Score: 27 025 12:14 PM EST documented as of this encounter Care Teams Delivery Crew Member Relationship Specialty Start Date End Date Azra Vásquez MD [address] [place] [address] PCP - General Family Medicine 10/20/18 Joe Sneed, VinnyD [address] [place] [address] Pharmacist Internal Medicine 02/10/24 documented as of this encounter
--- OUTSIDE RECORDS SUMMARY | 2024-12-03 11:52 | XMS_ITS | Encounter Summary ---
Author Organization [facility] Address [address] [facility] 7t [place] [address] Care Team Providers Care Slot Editor Name Role Phone Azra Vásquez MD Primary Care Provider [phone] Joe Sneed PharmD Unavailable [phone] Reason for Visit * Reason Onset Date Comments Appointment Request 11/26/2024 Encounter Details Date Type Department Care Team ([facility] st Contact Info) Description 11/26/2024 Telephone [facility] [address] [place], [place] [phone] Azra Vásquez MD [address] [place], [place] [phone] Appointment Request Social History Tobacco Use Types Packs/Day Years [...] AM EDT documented as of this encounter Miscellaneous Notes * Telephone Encounter - Lamont Medina - 11/26/2024 9:21 AM EST Tc from pt requesting a r/s appt for no show on 11/19/2024 with Joe Sneed. documented in this encounter Plan of Treatment Upcoming Encounters Date Type Department Care Team (Late st Contact Info) Description 12/13/2024 11:00 AM EST Medication Management [facility] [address] [place] [address] Joe Sneed, PharmD [address] [place] [address] 01/18/2025 11:30 AM EDT Office Visit [facility] [address] [place] [address] Azra Vásquez MD [address] [place] [address] documented as of this encounter Goals Goal Patient Goal Type Associated Problems Recent Progress Patient-Stated? Author Blood Pressure < 150/90 Blood Pressure 156/78(2024 11:30 AM EST) Joe Rice, PharmD Note: Per JNC-8 (Age 59+, no history of CKD or DM) documented as of this encounter Visit Diagnoses Not on filedocumented in this encounter Additional Health Concerns Assessment Noted Time PHQ-9 Depression Total Score: 27 025 12:14 PM EST documented as of this encounter Care Teams Slot Editor Relationship Specialty Start Date End Date Azra Vásquez MD [address] [place] [address] PCP - General Family Medicine 10/20/18 Joe Sneed, VinnyD [address] [place] [address] Pharmacist Internal Medicine 02/10/24 documented as of this encounter
--- OUTSIDE RECORDS SUMMARY | 2024-12-03 11:52 | XMS_ITS | Encounter Summary ---
Author Organization [employer] Address [address] [facility] 7t [place] [address] Care Team Providers Care Director Of Academic Support Name Role Phone Azra Vásquez MD Primary Care Provider [phone] Joe Sneed PharmD Unavailable [phone] Reason for Visit * Reason Onset Date Comments Results 11/11/2024 Encounter Details Date Type Department Care Team ([facility] st Contact Info) Description 11/11/2024 Telephone [facility] [address] [place], [place] [phone] Jeanie Pradhan RN [address] [place], [place] [phone] Results Social History Tobacco Use Types Packs/Day Years [...] encounter Miscellaneous Notes * Telephone Encounter - Jeanie Pradhan RN - 11/11/2024 3:32 PM EST T/C placed to pt re below lab results and POC. Informed TSH low, indicating levothyroxine dose is too high. Informed mcg dose PCP wants her to take is unavailable so PCP ordered larger dose to be cutin half to equal the dose that she wants. Informed 135mcg pills sent to pharmacy. Advised to talk 1/2 of pill daily at least 40 minutes prior to eating or drinking anything. Advised to recheck lab the beginning of December. Pt verbalized understanding and denied having any further questions or concerns at this time. * Telephone Encounter - Jeanie Pradhan RN - 11/11/2024 3:22 PM EST ----- Message from Azra Vásquez MD sent at 11/11/2024 1:32 PM EST ----- Please inform patient that her TSH is low consecutively. It suggests that her levothyroxine dose istoo high. Decreasing levothyroxine to 67 mcg daily. If 67 mcg is not available, will prescribe 135 mcg and patient needs to take 1/2 tablet. Please make sure she stop taking 75 mcg once she starts 67mcg daily. Thank you Addendum: 67 mcg is not available. Sent 137 mcg to be taken 1/2 tablet daily. Please ask her to recheck lab in 6 wks. Thank you documented in this encounter Plan of Treatment Upcoming Encounters Date Type Department Care Team (Late st Contact Info) Description 12/13/2024 11:00 AM EST Medication Management [address] [address] Joe Sneed, Uyen [address] [place] [address] 01/18/2025 11:30 AM EDT Office Visit [facility] [address] [place], [place] [phone] Azra Vásquez MD [address] [place] [address] documented as of this encounter Goals Goal Patient Goal Type Associated Problems Recent Progress Patient-Stated? Author Blood Pressure < 150/90 Blood Pressure 156/78(2024 11:30 AM EST) No Joe Sneed PharmD Note: Per JNC-8 (Age 59+, no history of CKD or DM) documented as of this encounter Visit Diagnoses Not on filedocumented in this encounter Additional Health Concerns Assessment Noted Time PHQ-9 Depression Total Score: 27 025 12:14 PM EST documented as of this encounter Care Teams Director Of Academic Support Relationship Specialty Start Date End Date Azra Vásquez MD [address] [place] [address] PCP - General Family Medicine 10/20/18 Joe Sneed, Uyen [address] [place] [address] Pharmacist Internal Medicine 02/10/24 documented as of this encounter
--- OUTSIDE RECORDS SUMMARY | 2024-12-03 11:52 | XMS_ITS | Encounter Summary ---
Author Organization [employer] Address [address] [facility] [address] 7[address] [place] [address] Care Team Providers Care Horse Breeder Name Role Phone Azra Vásquez MD Primary Care Provider [phone] Joe Sneed PharmD Unavailable [phone] Encounter Details Date Type Department Care Team (Late st Contact Info) Description 08/31/2024 Orders Only [facility] [address] [place], [place] [phone] Azra Vásquez MD [address] [place], [place] [phone] Social History Tobacco Use Types Packs/Day Years Used Date Smoking Tobacco: Never Passive Smoke Exposure: Never Smokeless Tobacco: Never Alcohol Use Standard Drinks/Week Comments Never 0 (1 standard drink = 0.6 oz pur e alcohol) Depression Answer Date Recorded Patient Health Questionnaire-9 Score 25 03/02/2024 Patient Health Questionnaire-9 Score 25 03/02/2024 Last PHQ-9: Questionnaire Data Not on file 0 03/02/2024 Housing Stability Answer Date Recorded What is [...] Date Recorded Patient Health Questionnaire-2 Score 6 03/02/2024 Comments Unknown Sex and Gender Information Value [...] Description 12/13/2024 11:00 AM EST Medication Management [address] [address] Joe Sneed, PharmD [address] [place] [address] 01/18/2025 11:30 AM EDT Office Visit [facility] [address] [place] [address] Azra Vásquez MD [address] [place] [address] documented as of this encounter Goals Goal [...] Assessment Noted Time PHQ-9 Depression Total Score: 25 024 10:28 AM EDT documented as of this encounter Care Teams Horse Breeder Relationship Specialty Start Date End Date Azra Vásquez MD [address] [place] [address] PCP - General Family Medicine 10/20/18 Joe Sneed, PharmD [address] [place] [address] Pharmacist Internal Medicine 02/10/24 documented as of this encounter
--- OUTSIDE RECORDS SUMMARY | 2024-12-03 11:52 | XMS_ITS | Encounter Summary ---
Author Organization [employer] [facility] Address [address] [facility] 7t [place] [address] Care Team Providers Care Manager Retention Name Role Phone Azra Vásquez MD Primary Care Provider [phone] Joe Sneed PharmD Unavailable [phone] Reason for Visit * Reason Comments Med Refill Encounter Details Date Type Department Care Team (Late st Contact Info) Description 03/23/2023 Refill [facility] [address] [place], [place] [phone] Sheree Alford MD [address] [place], [place] [phone] Social History Tobacco Use Types Packs/Day Years Used Date Smoking Tobacco: Never Passive Smoke Exposure: Never Smokeless Tobacco: Never Depression Answer Date Recorded Patient Health Questionnaire-9 Score 10 01/09/2023 Depression Answer Date Recorded Patient Health Questionnaire-2 Score 2 01/09/2023 Comments Unknown Sex and Gender Information Value [...] Description 12/13/2024 11:00 AM EST Medication Management [facility] [address] [place], [place] [phone] Joe Sneed, PharmD [address] [place], [place] [phone] 01/18/2025 11:30 AM EDT Office Visit [facility] [address] [place] [address] Azra Vásquez MD [address] [place] [address] documented as of this encounter Visit Diagnoses Not on filedocumented in this encounter Additional Health Concerns Assessment Noted Time PHQ-9 Depression Total Score: 10 023 9:12 AM EDT documented as of this encounter Care Teams Manager Retention Relationship Specialty Start Date End Date Azra Vásquez MD [address] [place] [address] PCP - General Family Medicine 10/20/18 Joe Sneed, PharmD [address] [place] [address] Pharmacist Internal Medicine 02/10/24 documented as of this encounter
--- OUTSIDE RECORDS SUMMARY | 2024-12-03 11:52 | XMS_ITS | Clinical Summary ---
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 setting on comitant use of CCB and BB); supra- or subtherapeutic thyroid replacement; asthma / hypoxia; caffeine - continue diltiazem and metoprolol - check thyroid function - refer to CDTM for review - consider decreasing amitriptyline or tapering off - will ask [facility] if she can have a sleep study by them Obesity 2023 Gastroesophageal reflux disease without esophagi tis 01/09/2023 Assessment & Plan (10/25/2024 11:15 AM EST): - Continue esomeprazole 40 mg daily. - She had her colonoscopy in June 2024 Assessment & Plan (02/26/2024 11:01 AM EDT): - Continue esomeprazole 40 mg daily. - Pt was seen by GI for EGD and colonoscopy; scheduled for June 2024 Assessment & Plan (07/11/2023 6:08 PM EDT): - Continue Pantoprazole 40 mg daily. - Pt was referred to GI for EGD and colonoscopy; but did not schedule an appt - Pt declined colonoscopy today, but agrees to do cologuard Assessment & Plan (01/09/2023 9:10 AM EDT): - Continue Pantoprazole 40 mg daily. - Pt was referred to GI for EDG evaluation at the same time of colonoscopy. -Pt states she is currently focusing on her dental health, and will reschedule once she recovers from the dental procedure. Osteopenia 01/09/2023 Assessment & Plan (10/29/2024 6:40 AM EST): - DEXA scan on 02/26/22 Showed the lowest T-score of -2.2 in left femoral neck - DEXA scan on 08/24/24 showed the lowest T-score of -2.3 in femoral neck - Started on alendronate since Aug 2024 - Continue weight bearing exercise - Re-assess bone density in 2 years Assessment & Plan (10/13/2023 11:01 AM EST): - DEXA scan on 02/26/22 Showed the lowest T-score of -2.2 in left femoral neck - Discussed treatment with Fosamax. Pt is hesitant to start medication d/t uncontrolled GERD. - Pt agreed to consider treatment after GERD sxs improved. - Advised to increase weight bearing exercise - Re-assess bone density Assessment & Plan (01/09/2023 9:11 AM EDT): -DEXA scan on 02/26/22 Showed the lowest T-score of -2.2 in left femoral neck - Discussed treatment with Fosamax. Pt is hesitant to start medication d/t uncontrolled GERD. - Pt agreed to consider treatment after GERD sxs improved. - Advised to increase weight bearing exercise Fibromyalgia 11/30/2022 Assessment & Plan (10/13/2023 11:01 AM EST): - continue duloxetine - continue amitriptyline (plan to taper down and off), which is mainly for DE SANTIAGO Assessment & Plan (07/11/2023 6:09 PM EDT): - continue duloxetine - continue amitriptyline (plan to taper down and off), which is mainly for DE SANTIAGO 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 Assessment & Plan (10/29/2024 6:43 AM EST): - Most recent TSH 0.15 on 10/25/24, supratherapeutic 0.46 on 02/23/24. Normal free T4. - Likely due to her new medications - Current replacement levothyroxine 75 mcg everyday. - Recheck thyroid function test. If TSH is low again, consider readjusting to 67.5 mg daily. Either use one 67.5 mcg pill or 1/2 of 112 mcg. Assessment & Plan (02/26/2024 11:02 AM EDT): - Most recent TSH 0.46 on 02/23/24 - Improved medication adherence. - Continue levothyroxine 75 mcg everyday. - Recheck thyroid function test Assessment & Plan (12/30/2023 6:39 AM EDT): - Most recent TSH 9.12 on 01/09/23 - Improved medication adherence. - Continue levothyroxine 75 mcg everyday. - Recheck thyroid function test Assessment & Plan (10/13/2023 11:02 AM EST): - Most recent TSH 9.12 on 01/09/23 - Improved medication adherence. - Continue levothyroxine 75 mcg everyday. - Recheck thyroid function test Assessment & Plan (07/11/2023 6:11 PM EDT): Most recent TSH 9.12 on 01/09/23 - Improved medication adherence. - Continue levothyroxine 75 mcg everyday. - Recheck thyroid function test Assessment & Plan (01/09/2023 9:08 AM EDT): Most recent TSH 4.50 on 01/11/22 - Improved medication adherence. - Continue levothyroxine 50 mcg everyday. - Recheck thyroid function test in 6 months Peripheral venous insufficiency 02/28/2016 Assessment & Plan (10/25/2024 11:28 AM EST): - following with [facility] - leg elevation, low sodium diet, adequate physical activity, and compression stocking - she reports not using her compression stockings as she says they are too tight Assessment & Plan (12/30/2023 6:39 AM EDT): - following with [facility] - leg elevation, low sodium diet, adequate physical activity, and compression stocking Assessment & Plan (10/09/2023 5:48 AM EST): - following with [facility] - leg elevation, low sodium diet, adequate physical activity, and compression stocking Assessment & Plan (07/11/2023 6:07 PM EDT): - following with [facility] - leg elevation, low sodium diet, adequate physical activity, and compression stocking Varicose veins of both lower extremities 016 Allergic rhinitis 09/05/2015 Assessment & Plan (10/25/2024 11:16 AM EST): -Continue montelukast -Continue loratadine -Continue fluticasone nasal Assessment & Plan (02/26/2024 11:03 AM EDT): -Continue montelukast -Continue loratadine -Continue fluticasone nasal Assessment & Plan (10/13/2023 11:06 AM EST): -Continue montelukast -Continue loratadine -Continue fluticasone nasal Assessment & Plan (07/11/2023 6:12 PM EDT): -Continue montelukast -Continue loratadine -Continue Flonase Assessment & Plan (01/09/2023 9:06 AM EDT): -Continue Singulair. -Continue loratadine -Continue Flonase Essential hypertension 09/05/2015 Assessment & Plan (10/25/2024 11:34 AM EST): - Goal BP < 140/90 per JNC-8, < 130/80 per ACC/AHA guideline ; BP is not at goal today - Co-managed with our pharmacist and property man - Work on life style modifications. - Continue lisinopril 40 mg daily - Continue metoprolol succinate 25 mg bid - Continue diltiazem 180 mg daily, [employer] has increased dose to 360 mg but pt is still taking 180 mg. Pt reports normal blood pressure - Continue Chlorthlidone 12.5 mg daily - Continue checking home BP. If persistently elevated, advised to call us so that we can adjust medication. - Patient is on multiple agents; consider evaluation for primary aldosteronism. - Consider decreasing pill-burden once BP becomes stable --treatment hx-- Discontinued metoprolol 12.5 mg bid in Jun 2017 due to dizziness. Restarted due to HTN and PVC Discontinued lisionpril-hctz in Jun 2017 due to urinary complaint. Assessment & Plan (02/27/2024 6:54 AM EDT): - Goal BP < 140/90 per JNC-8, < 130/80 per ACC/AHA guideline ; BP is not at goal today - Co-managed with our pharmacist and property man - Work on life style modifications. - Continue lisinopril 40 mg daily - Continue metoprolol succinate 25 mg bid - Continue diltiazem 180 mg daily, ? Possible increased dose by property man, will confirm with office - Continue Chlorthlidone 12.5 mg daily - Continue checking home BP. If persistently elevated, advised to call us so that we can adjust medication. - Patient is on multiple agents; consider evaluation for primary aldosteronism. - Consider decreasing pill-burden once BP becomes stable --treatment hx-- Discontinued metoprolol 12.5 mg bid in Jun 2017 due to dizziness. Restarted due to HTN and PVC Discontinued lisionpril-hctz in Jun 2017 due to urinary complaint. Assessment & Plan (12/30/2023 6:38 AM EDT): - Goal BP < 140/90 per JNC-8, < 130/80 per ACC/AHA guideline ; BP is at goal today - Work on life style modifications. - Continue lisinopril 40 mg daily. - Continue metoprolol succinate 25 mg bid - Continue diltiazem 180 mg daily - Continue Chlorthlidone 12.5 mg daily - Continue checking home BP. If persistently elevated, advised to call us so that we can adjust medication. - Patient is on multiple agents; consider evaluation for primary aldosteronism. --treatment hx-- Discontinued metoprolol 12.5 mg bid in Jun 2017 due to dizziness. Restarted due to HTN and PVC Discontinued lisionpril-hctz in Jun 2017 due to urinary complaint. Refer to [facility] Follow-up in 3 mo Assessment & Plan (12/05/2023 3:25 PM EST): Optimally controlled. Compliant w/meds, take all her meds regularly until the day PRIOR to surgery. Continue lisinopril, diltiazem, metoprolol, and chlorthalidone on the day of the surgery w a sip of water. Resume all other meds the day AFTER the procedure. Counseled re low salt diet/increase moderate physical activity. Check home BP BIW and prn CP/DE SANTIAGO/SIMMS Non smoking patient. Assessment & Plan (10/13/2023 11:00 AM EST): - Goal BP < 140/90 per JNC-8, < 130/80 per ACC/AHA guideline ; BP is at goal today - Work on life style modifications. - Continue lisinopril 40 mg daily. - Continue metoprolol succinate 25 mg bid - Continue diltiazem 180 mg daily - Continue Chlorthlidone 12.5 mg daily - Continue checking home BP. If persistently elevated, advised to call us so that we can adjust medication. - Patient is on multiple agents; consider evaluation for primary aldosteronism. --treatment hx-- Discontinued metoprolol 12.5 mg bid in Jun 2017 due to dizziness. Restarted due to HTN and PVC Discontinued lisionpril-hctz in Jun 2017 due to urinary complaint. Refer to CDTM Follow-up in 3 mo Assessment & Plan (07/11/2023 6:06 PM EDT): - Goal BP < 140/90 per JNC-8, < 130/80 per ACC/AHA guideline ; BP is at goal today - Work on life style modifications. - Continue lisinopril 40 mg daily. - Continue metoprolol succinate 25 mg bid - Continue diltiazem 180 mg daily - Continue Chlorthlidone 12.5 mg daily - Continue checking home BP. If persistently elevated, advised to call us so that we can adjust medication. --treatment hx-- Discontinued metoprolol 12.5 mg bid in Jun 2017 due to dizziness. Restarted due to HTN and PVC Discontinued lisionpril-hctz in Jun 2017 due to urinary complaint. Refer to [facility] Follow-up in 3 mo Assessment & Plan (01/09/2023 9:27 AM EDT): Goal BP < 140/90 per JNC-8, < 130/80 per ACC/AHA guideline ; BP is at goal today - Work on life style modifications. - Continue lisinopril 40 mg daily. - Continue Chlorthlidone 12.5 mg daily (questionable adherence) - Continue checking home BP. If persistently elevated, advised to call us so that we can adjust medication. - Pt advised to start half tablets of Chlorthlidone, if her BP systolic, is persistently above 140, pt is to take a whole tablet - We tried to evaluate her for LEEROY, but pt is hesitant and states she will not use CPAP even if she has DX. Therefore, we agreed not to order at this time. --treatment hx-- Discontinued metoprolol 12.5 mg bid in Jun 2017 due to dizziness. Discontinued lisionpril-hctz in Jun 2017 due to urinary complaint. Refer to [facility] Follow-up in 3 mo Prediabetes 09/05/2015 Assessment & Plan (10/25/2024 11:15 AM EST): - 03/12/21 A1C 6.4% - 10/29/23 A1C 6.2% - Continue working on lifestyle modification Assessment & Plan (02/26/2024 11:03 AM EDT): - 03/12/21 A1C 6.4% - 10/29/23 A1C 6.2% - Continue working on lifestyle modification Assessment & Plan (12/30/2023 6:39 AM EDT): - 03/12/21 A1C 6.4% - 01/11/22 A1C 6.2% -01/08/23 A1C 6.2% - Continue working on lifestyle modification Assessment & Plan (10/09/2023 5:56 AM EST): - 03/12/21 A1C 6.4% - 01/11/22 A1C 6.2% -01/08/23 A1C 6.2% - Continue working on lifestyle modification Assessment & Plan (07/11/2023 6:11 PM EDT): - 03/12/21 A1C 6.4% - 01/11/22 A1C 6.2% -01/08/23 A1C 6.2% - Continue working on lifestyle modification Assessment & Plan (01/09/2023 9:08 AM EDT): - 03/12/21 A1C 6.4% - 01/11/22 A1C 6.2% - Continue working on lifestyle modification Moderate persistent asthma 09/05/2015 Assessment & Plan (10/29/2024 6:37 AM EST): -Current maintenance: montelukast 10mg daily, Symbicort 80-4.5 mcg/ACT 1 puff, BID -Rescue medication: Albuterol inhaler and nebulizer as prn -Last exacerbation: APRIL 2019, Rx Prednisone Assessment & Plan (02/26/2024 10:58 AM EDT): -Current maintenance: montelukast 10mg daily, Symbicort 80-4.5 mcg/ACT 1 puff, BID -Rescue medication: Albuterol inhaler and nebulizer as prn -Last exacerbation: APRIL 2019, Rx Prednisone -Follow-up in 3-4 mo. Assessment & Plan (12/30/2023 6:38 AM EDT): -Current maintenance: montelukast 10mg daily, Symbicort 80-4.5 mcg/ACT 1 puff, BID -Rescue medication: Albuterol inhaler and nebulizer as prn -Last exacerbation: APRIL 2019, Rx Prednisone -Follow-up in 3-4 mo. Assessment & Plan (10/09/2023 5:47 AM EST): -Current maintenance: montelukast 10mg daily, Symbicort 80-4.5 mcg/ACT 1 puff, BID -Rescue medication: Albuterol inhaler and nebulizer as prn -Last exacerbation: APRIL 2019, Rx Prednisone -Follow-up in 3-4 mo. Assessment & Plan (07/11/2023 6:04 PM EDT): -Current maintenance: montelukast 10mg daily, Symbicort 80-4.5 mcg/ACT 1 puff, BID -Rescue medication: Albuterol inhaler and nebulizer as prn -Last exacerbation: APRIL 2019, Rx Prednisone -Follow-up in 3-4 mo. Assessment & Plan (01/09/2023 9:38 AM EDT): -Current maintenance: Singulair 10mg daily, Symbicort 80-4.5 mcg/ACT 1 puff, BID -Rescue medication: Albuterol inhaler and nebulizer as prn -Last exacerbation: APRIL 2019, Rx Prednisone -Flovent was switched to Symbicort in 07/2022 due to allergies and seasonal changes. Patient has been using Flovent and not Symbicort, pt states she never received Symbicort at the pharmacy. -Restart Symbicort 80-4.5 mcg/ACT 1 puff - BID Chronic headache disorder 09/23/2014 Assessment & Plan (10/29/2024 6:37 AM EST): -multifactorial tension, sinus, migraine -Seen by neurologist on 06/25/17. Prescribed topiramate and diclofenac. She self-discontinued topiramate and takes diclofenac prn. -Continue amitriptyline 25 mg qhs with caution. Consider tapering it off due to PVC -(Continue metoprolol for HTN) -CT scan on 02/19/24 did not show sign of CVA or mass, partially empty sella -Referred to neurologist, but pt did not keep appointment. She requests a new referral. -Consider trial of magnesium oxide Assessment & Plan (02/26/2024 10:58 AM EDT): -multifactorial tension, sinus, migraine -Seen by neurologist on 06/25/17. Prescribed topiramate and diclofenac. She self-discontinued topiramate and takes diclofenac prn. -Continue amitriptyline 25 mg qhs with caution. Consider tapering it off due to PVC -(Continue metoprolol for HTN) -CT scan on 02/19/24 did not show sign of CVA or mass, partially empty sella -Referred to neurologist, but pt did not keep appointment -Consider trial of magnesium oxide -Follow-up in 3 months. Assessment & Plan (12/30/2023 6:38 AM EDT): -multifactorial tension, sinus, migraine -Seen by neurologist on 06/25/17. Prescribed topiramate and diclofenac. She self-discontinued topiramate and takes diclofenac prn. -Continue amitriptyline 25 mg qhs with caution. Consider tapering it off due to PVC -(Continue metoprolol for HTN) -CT scan on 04/15/23 did not show sign of CVA or mass, partially empty sella -Referred to neurologist, but pt did not keep appointment -Consider trial of magnesium oxide -Follow-up in 3 months. Assessment & Plan (10/13/2023 10:59 AM EST): -multifactorial tension, sinus, migraine -Seen by neurologist on 06/25/17. Prescribed topiramate and diclofenac. She self-discontinued topiramate and takes diclofenac prn. -Continue amitriptyline 25 mg qhs with caution. Consider tapering it off due to PVC -(Continue metoprolol for HTN) -CT scan on 04/15/23 did not show sign of CVA or mass, partially empty sella -Referred to neurologist, but pt did not keep appointment -Consider trial of magnesium oxide -Follow-up in 3 months. Assessment & Plan (07/11/2023 6:02 PM EDT): -multifactorial tension, sinus, migraine -Seen by neurologist on 06/25/17. Prescribed topiramate and diclofenac. She self-discontinued topiramate and takes diclofenac prn. -Continue amitriptyline 25 mg qhs with caution. Consider tapering it off due to PVC -(Continue metoprolol for HTN) -CT scan on 04/15/23 did not show sign of CVA or mass, partially empty sella -Referred to neurologist. -Follow-up in 3 months. Assessment & Plan (01/17/2023 4:34 PM EDT): -multifactorial tension, sinus, migraine -Seen by neurologist on 06/25/17. Prescribed topiramate and diclofenac. She self-discontinued topiramate and takes diclofenac prn. -Continue amitriptyline 25 mg qhs with caution. -(Continue metoprolol for HTN) -Evaluate with CT scan -Refer to neurologist. -Follow-up in 3 months. Resolved Problems Problem Noted Date Diagnosed Date Resolved Date Preoperative clearance 12/05/202302/25 Assessment & Plan (12/05/2023 3:24 PM EST): 68 yo patient with multiple medical conditions here for preop evaluation. Most of her medical conditions are stable enough so that she can safely undergo planned procedure. She/he is a LOW risk patient. She's undergoing an LOW risk procedure. The risk of CV complication according to RCRI is 3.9% whcih is an average risk. At this time SHE IS ON OPTIMAL CONDITION for planned procedure. No need for additional labs. -Meds adjusted (HTN meds) for the day of surgery as above. -Call back AMINATA should he develops fever, cough, SOB, CP, UTI sxs or any other acute issue Encounters Date Type Department Care Team Description 11/26/[address] [address] Azra Edwards MD Appointment Request 11/11/[address] [address] Jeanie Pradhan, RN Results 11/11/2024 Orders Only [facility] [address] [facility] [place] [address] Azra Edwards MD 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 (Primary Dx); Low TSH level 11/11/2024 Orders Only [facility] [address] [place] [address] Azra Edwards MD 11/02/2024 Refill [facility] [address] [place] [address] Sheree Alford MD 10/30/2024 Telephone [facility] [address] [place] [address] Jeanie Pradhan RN Results 10/29/2024 Telephone [facility] [address] [place] [address] Azra Edwards MD 10/27/2024 Orders Only [facility] [address] [place] [address] Azra Edwards MD 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 (Primary Dx) 10/26/2024 Abstract [facility] [address] [place] [address] Bernie Walker MA 10/25/2024 11:00 AM EST Office Visit [facility] [place] [address] Azra Edwards MD Essential hypertension (Primary Dx); Moderate persistent asthma without complication; Prediabetes; Osteopenia, unspecified location; 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; Chronic depression; Allergic rhinitis, unspecified seasonality, unspecified trigger; Peripheral venous insufficiency; Gastroesophageal reflux disease without esophagitis; Chronic nonintractable headache, unspecified headache type; Encounter for immunization; Tubular adenoma of colon; PTSD (post-traumatic stress disorder); SKIP (generalized anxiety disorder); Severe major depressive disorder ([facility]/HCC); Dietary counseling; Exercise counseling; Class 1 obesity due to excess calories with serious comorbidity and body mass index (BMI) of 33.0 to 33.9 in adult 10/25/2024 Orders Only [facility] [address] [place] [address] Azra Edwards MD 10/25/2024 Travel 10/22/2024 Orders Only [facility] [address] [facility] [place] [place] [address] Azra Edwards MD Essential hypertension (Primary Dx) 10/22/2024 Telephone [facility] [address] [facility] [place] [place] [address] Azra Edwards MD 10/21/2024 Telephone [facility] [address] [place] [address] Bernie Walker MA chart prep 09/18/2024 Refill [facility] [address] [place] [address] Azra Edwards MD 09/11/2024 Refill [facility] [address] [place] [address] Azra Edwards MD 09/03/2024 Telephone [facility] [address] [place] [address] Azra Edwards MD Appointment Request from Last 3 Months Immunizations Name Administration Dates Next Due INFLUENZA VACCINE QUADRIVALE NT RECOMBINANT PRESERVATIVE FREE RIV4 07/08/2020 Influenza High-dose Quadriva lent Preservative Free 2023,08/12/2022,07/17/2021,08/31 Influenza injectable quadriv alent IIV4 with preservative 07/14/2017,07/17/2016,07/11/2015 Influenza injectable quadriv alent preservative free 08/04/2019,08/01/2018 Influenza, IIV3, injectable 09/19/2014,0 06/14/2011,08/31/2010,07/26,08/17/2007,09/08/2006,09/04/2005 Influenza, Split (incl. skylar fied surface antigen) 10/02/2012 Sukh SARS-CoV-2 Vaccination 09/06/2021,2020 Pfizer Covid-19 Vaccine 12+ 10/25/2024, Pfizer Covid-19 Vaccine 12+ Bivalent 01/09/2023 Pneumococcal Conjugate PCV 20 08/12/2022 Pneumococcal Polysaccharide PPSV23 08/04/2019,,02/14/2006 RSV Bivalent 11/25/2023 TD (adult), 2 Lf tetanus tox oid, preservative free, adsorbed 02/14/2006 Tdap 2023,05/31/2013 Zoster, Recombinant 08/31/2020,12/15/2019 Zoster, live 07/17/2016 Social History Tobacco Use Types Packs/Day Years Used Date Smoking Tobacco: Never Passive Smoke Exposure: Never Smokeless Tobacco: Never Tobacco Cessation:Counseling Given: Not Answered Alcohol Use Standard Drinks/Week Comments Never 0 [...] Orientation Straight 08/19/2022 10 :15 AM EDT Last Filed Vital Signs Vital Sign Reading Time Taken Comments Blood Pressure 156/78 10/25/2024 11:30 AM EST Pulse 93 10/25/2024 11:04 AM EST Temperature 36.1 ??C (96.9 ??F) 10/25/2024 11:[address] Respiratory Rate 18 02/26/2024 10:46 AM EDT Oxygen Saturation 98% 10/25/2024 11:04 AM EST Inhaled Oxygen Concentration - - Weight 73 kg (161 lb) 10/25/2024 11:04 AM EST Height 147.3 cm (4' 10 ) 10/25/2024 11:04 AM EST Body Mass Index 33.65 10/25/2024 11:04 AM EST Plan of Treatment Upcoming Encounters Date Type Department Care Team (Late st Contact Info) Description 12/13/2024 11:00 AM EST Medication Management [facility] [address] [place] [id number] Joe Sneed, PharmD [address] [place] [address] 01/18/2025 11:30 AM EDT Office Visit [facility] [address] [place] [id number] Azra Edwards MD [address] [place] [address] Health Maintenance Due Date Last Done Comments CT Colonography 1954 FIT 1954 FOBT 1954 Sigmoidoscopy 1954 Influenza Vaccine (#1) 2024 3, 08/12/2022, 07/17/2021, Additional history exists SDOH Screening 02/25/2025 02/26/2024 Depression Monitoring (PHQ-9) 04/24/2025 10/25/2024, 10/25/2024 Alcohol/Substance Use Screening 10/25/2025 10/25/2024 Depression Screening 10/25/2025 10/25/2024, 10/25/19 25 Diabetes: Hemoglobin A1C 10/25/2025 025, 10/29/2023, 01/09/2023, Additional history exists Tobacco Screening 10/25/2025 10/25/2024 FIT DNA/Cologuard 08/07/2026 08/07/2023 Mammogram 08/24/2026 08/24/2024, 110 10/2022, 02/26/2022, Additional history exists Colonoscopy 06/25/2029 06/25/2024 Colorectal Cancer Screening 06/25/2029 Lipid Panel 10/25/2029 10/25/2024, 10/20, 01/09/2023, Additional history exists DTaP/Tdap/Td Vaccines (3 - Td or Tdap) 2033 2023, 05/31/2013, 02/14/2006 Zoster Vaccines Completed 08/31/2020, 11/21, 07/17/2016 Pneumococcal Vaccine: 50+ Years Completed 08/12/2022, 08/04/2019, 06/14/2011, Additional history exists RSV Patients and Patients Aged 60 years or older Completed 11/25/2023 COVID-19 Vaccine Completed 10/25/2024, , 01/09/2023, Additional history exists HIB Vaccines Aged Out No longer eligi ble based on patient's age to complete this topic HPV Vaccines Aged Out No longer eligi ble based on patient's age to complete this topic Hepatitis A Vaccines Aged Out No long er eligible based on patient's age to complete this topic Hepatitis B Vaccines Aged Out No long er eligible based on patient's age to complete this topic Hepatitis C Screening Discontinued IPV Vaccines Aged Out No longer eligi ble based on patient's age to complete this topic Meningococcal Vaccine Aged Out No tobin jillian eligible based on patient's age to complete this topic RSV under 20 months Aged Out No longe r eligible based on patient's age to complete this topic Rotavirus Vaccines Aged Out No longer eligible based on patient's age to complete this topic Goals Goal Patient Goal Type Associated Problems Recent Progress Patient-Stated? Author Blood Pressure < 150/90 Blood Pressure 156/78(2024 11:30 AM EST) Joe Rice, PharmD Note: Per JNC-8 (Age 60+, no history of CKD or DM) Procedures Procedure Name Priority Date/Time Associated Diagnosis Comments T4, FREE Routine 11/11/2024 9:25 AM EST TSH W/REFLEX TO FT4 Routine 11/11/2024 9 :25 AM EST 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 ALBUMIN, RANDOM URINE W/CREATININE Routine 10/28/2024 2:35 PM EST Essential hypertension T4, FREE Routine 10/25/2024 11:53 AM EST TSH W/REFLEX TO FT4 Routine 10/25/2024 1 1:53 AM EST Essential hypertension 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 HEMOGLOBIN A1C Routine 10/25/2024 11:53 AM EST Prediabetes COMPREHENSIVE METABOLIC PANEL Routine 10/25/2024 11:53 AM EST Essential hypertension LIPID PANEL WITH REFLEX TO DIRECT LDL Routine 10/25/2024 11:53 AM EST Essential hypertension BI MAMMOGRAM SCREENING TOMOSYNTHESIS BILATERAL Routine 08/24/2024 10:20 AM EST HM COLONOSCOPY Routine 06/25/2024 LAB COLOGUARD?? COLON CANCER SCREEN Routine 08/07/2023 10:00 AM EDT Colon cancer screening from Last 3 Months or Most Recently Relevant to Health Maintenance Results * (ABNORMAL) TSH with Reflex to Free T4 (11/11/2024 9:25 AM EST) Only the most recent of2 resultswithin the time period is included. TSH reflex Free T4 0.04(L) 0.32 - 4.0 uIU/mL [facility] Blood 11/11/2024 9:25 AM EST 11/11/2024 11:20 AM EST us Azra Edwards MD LAB BLOOD ORDERABLES Final Resul t [facility] [address] [place] [phone] * T4, Free (11/11/2024 9:25 AM EST) Only the most recent of2 resultswithin the time period is included. Free T4 (Free Thyroxine) 0.89 0.71 - 1.85 ng/dL [facility] 11/11/2024 9:25 AM EST 11/11/2024 11:20 AM EST Azra Edwards MD LAB BLOOD ORDERABLES Final Resul t Performing Organization Address [facility] Phone Number [facility] [address] [place] [phone] * Albumin, Random Urine W/Creatinine (10/28/2024 2:35 PM EST) Creatinine, Urine 94.18 mg/dL [facility] Microalbumin Urine 7.0 mg/L [facility] Microalbum Creatinine Ratio Ur 7.4 <30 ug/mg cr [facility] Comment:Albumin/Creatinine R atio Reference Ranges: Normal: < 30 ug/mg creatinine Microalbuminuria: 30 - 300 ug/mg creatinineClinical Albuminuria: > 300 ug/mg creatinine Urine 10/28/2024 2:35 PM EST 10/28/2024 4:15 PM EST Azra Edwards MD LAB URINE ORDERABLES Final Resul t Performing Organization Address [facility] Co de Phone Number [facility] [address] [place] [phone] * (ABNORMAL) Lipid Panel with Reflex to Direct LDL (10/25/2024 11:53 AM EST) Triglycerides 129 <150 mg/dL [facility] Comment:Desirable Triglyceri de: less than 150 mg/dLBorderline High Triglyceride 150-199 mg/dLHigh Triglyceride: 200-499 mg/dLVery High Triglyceride: greater than or equal to 5OO mg/dL Cholesterol 127 <200 mg/dL [facility] Comment:Desirable Cholestero l: less than 200 mg/dLBorderline High Cholesterol: 200-239 mg/dLHigh Cholesterol: greater than 239 mg/dL LDL Cholesterol Calculated 63 <100 mg/dL [facility] Comment:Desirable LDL: less than 100 mg/dLNear Optimal/Above Optimal LDL: 110- 129 mg/dLBorderline High LDL: 130-159 mg/dLHigh LDL: 160-189 mg/dLVery High LDL: greater than or equal to 190 mg/dL HDL Cholesterol 39(L) >40 mg/dL [facility] Comment:Desirable HDL: great er than 40 mg/dL Note: This HDL assay may give artificially low results in patients with liver disease. Blood 10/25/2024 11:5 3 AM EST 10/25/2024 1:45 PM EST us Azra Edwards MD LAB BLOOD ORDERABLES Final Resul t [facility] [address] [place] [phone] * (ABNORMAL) Hemoglobin A1c (10/25/2024 11:53 AM EST) Hemoglobin A1c 6.1(H) <6.0 % [facility] Comment:Hemoglobin A1C Refer ence Range Adults: 4.8 - 6.0 % Non diabetic: < 6.0 % Goal: < 7.0 %Additional Action Suggested: > 8.0 %Note: Hemoglobin A1c results are invalid for patients with abnormal amounts of HbF. Blood transfusions may impact the HbA1c concentration in the patient sample. Estimated Average Glucose 128 mg/dL [facility] Comment:eAG = Estimated ave rage glucose which is %A1C expressed asaverage glucose, using the formula of the X7Y-AthffslTjvlrfc Glucose study (ADAG), Diabetes Care, Vol.31,#8,May. 2007 Blood Venous blood specimen / Unknown 10/25/2024 11:53 AM EST 10/25/2024 1:45 PM EST us Azra Edwards MD LAB BLOOD ORDERABLES Final Resul t Performing Organization Address City/[facility]/ZIP Co de Phone Number [facility] [address] [place] [phone] [phone] * (ABNORMAL) Comprehensive Metabolic Panel (10/25/2024 11:53 AM EST) Sodium 137 135 - 145 mmol/L [facility] Potassium 4.3 3.3 - 5.1 mmol/L [facility] Chloride 103 96 - 108 mmol/L [facility] Carbon Dioxide 27 22 - 29 mmol/L [facility] Anion Gap 11(L) 12 - 20 [facility] Urea Nitrogen (BUN) 19(H) 9 - 16 mg/dL [facility] Creatinine, Serum 1.20 0.5 - 1.4 mg/dL [facility] Estimated Glomerular Filt Rate 44 [facility] Comment:Chronic Kidney Disea se: Estimated GFR < 60 mL/min/1.70l3Ybbqcl Kidney Disease: Estimated GFR < 15 mL/min/1.73m2 Glucose 93 60 - 115 mg/dL [facility] Calcium 9.9 8.4 - 10.2 mg/dL [facility] Bilirubin, Total 0.4 0.0 - 1.0 mg/dL [facility] Aspartate Amino Transferase 20 5 - 31 U/L [facility] Alanine Aminotransferase 21 0 - 31 U/L [facility] Total Protein 8.5(H) 6.5 - 8.0 g/dL [facility] Albumin Level 4.2 3.5 - 5.0 g/dL [facility] Alkaline Phosphatase 212(H) 39 - 117 U/L [facility] Blood Venous blood specimen / Unknown 10/25/2024 11:53 AM EST 10/25/2024 1:45 PM EST us Azra Edwards MD LAB BLOOD ORDERABLES Final Resul t [facility] [address] [place] [address] [phone] * BI Mammogram Screening Tomosynthesis Bilateral (08/24/2024 10:20 AM EST) Anatomical Region Laterality Modality Breast Bilateral Mammography 08/24/2024 10:2 0 AM EST Narrative 09/01/2024 1:19 PM EST ? [facility] [place] ? [address] ?[place] [address] ? Mammography Report ? Signed ? Patient: Samuel,Ana ?MR#: [id number] ?? [id number] ? : 1955 ?Acct:[id number] ? Age/Sex: 69 / F ?ADM Date: 08/24/24 ? Loc: HO.MAMMO ? Attending Dr: Azra Edwards MD ? Ordering Physician: Azra Edwards MD ?Results: 1Negative ? Date of Service: 08/24/24 ?Follow Up: 1 Year From Orig ?? inal Mammogram ? Procedure(s): MM tomosynthesis screening BI ?? Accession Number(s): [id number] ? cc: Azra Edwards MD ? EXAMINATION: ?? MM SCREENING DIGITAL BREAST TOMOSYNTHESIS, BILATERAL ? CLINICAL INFORMATION: ? Screening. Asymptomatic. ? COMPARISON: ?? Mammography: Comparison is made with available priors ? TECHNIQUE: ?? Digital breast mammography with tomosynthesis is performed in both the ?? craniocaudal and mediolateral oblique views along with computer-aided ?? detection (CAD). ? FINDINGS: ?? The breasts are heterogeneously dense, which may obscure small masses ?? (ACR BI-RADS breast composition Category c). ? There are no significant masses, abnormal calcifications, or other ?? abnormalities. ? MM/MM tomosynthesis screening BI ?? IMPRESSION: ?? No mammographic evidence of malignancy. ? ASSESSMENT: ? BI-RADS BI-RADS 1 - Negative ? RECOMMENDATION: ?? Routine annual mammography screening. ? 1 year F/U ? This examination should not preclude the clinical evaluation of a ?? suspicious palpable abnormality. ? This patient's information was entered into a reminder system with a ?? target due date for their next mammogram. ? Electronically signed by: ??Zuly Pena DO ??09/01/2024 01:16 PM EST ? Dictated By: ?Zuly Pena DO ? Signed By: ?<Electronically signed by Zuly Pena, DO in OV> ? 09/01/24 1316 ? DD/ 1020 ? TD/TT: 08/24/24 1035 ? Press Smith Helper: ? Procedure Note Berkley, Image - 09/01/2024 [facility] [address] [place] [address] Mammography Report Signed Patient: Ana Baker#: [id number] : 4Acct:[id number] Age/Sex: 69 / FADM Date: 08/24/24 Loc: EM Attending Dr: Azra Edwards MD Ordering Physician: Azra Edwardsesults: 1Negative Date of Service: 08/24/24Follow Up: 1 Year From Orig inal Mammogram Procedure(s): MM tomosynthesis screening BI Accession Number(s): [id number] cc: Azra Edwards MD EXAMINATION: MM SCREENING DIGITAL BREAST TOMOSYNTHESIS, BILATERAL CLINICAL INFORMATION: Screening. Asymptomatic. COMPARISON: Mammography: Comparison is made with available priors TECHNIQUE: Digital breast mammography with tomosynthesis is performed in both the craniocaudal and mediolateral oblique views along with computer-aided detection (CAD). FINDINGS: The breasts are heterogeneously dense, which may obscure small masses (ACR BI-RADS breast composition Category c). There are no significant masses, abnormal calcifications, or other abnormalities. MM/MM tomosynthesis screening BI IMPRESSION: No mammographic evidence of malignancy. ASSESSMENT: BI-RADS BI-RADS 1 - Negative RECOMMENDATION: Routine annual mammography screening. 1 year F/U This examination should not preclude the clinical evaluation of a suspicious palpable abnormality. This patient's information was entered into a reminder system with a target due date for their next mammogram. Electronically signed by: Zuly Pena DO 09/01/2024 01:16 PM EST Dictated By: Zuly Pena DO Signed By: <Electronically signed by Zuly Pena DO in OV> 09/01/24 1316 DD/ 1020 TD/TT: 08/24/24 1035 Press Smith Helper: Azra Edwards MD IM BI PROCEDURES Final Result * Hm Colonoscopy (06/25/2024) Colonoscopy Normal Normal 06/25/2024 Historical Provider [facility] Final Result * (ABNORMAL) Cologuard?? colon cancer screening (08/07/2023 10:00 AM EDT) Cologuard Result Positive( A) Negative 08/14/2023 8:34 PM EDT [facility] (CLIA #:[id number]) Comment: POSITIVE TEST RESULT. A positive Cologuard result should be followed with a colonoscopy or visual examination of the colon. The normal value (reference range) for this assay is negative. TEST DESCRIPTION: Composite algorithmic analysis of stool DNA-biomarkers with hemoglobin immunoassay. ?? Quantitative values of individual biomarkers are not reportable and are not associated with individual biomarker result reference ranges. Cologuard is intended for colorectal cancer screening of adults of either sex, 45 years or older, who are at average-risk for colorectal cancer (CRC). Cologuard has been approved for use by the U.S. FDA. The performance of Cologuard was established in a cross sectional study of average-risk adults aged 50-84. Cologuard performance in patients ages 45 to 49 years was estimated by sub-group analysis of near-age groups. Colonoscopies performed for a positive result may find as the most clinically significant lesion: colorectal cancer [4.0%], advanced adenoma (including sessile serrated polyps greater than or equal to 1cm diameter) [20%] or non- advanced adenoma [31%]; or no colorectal neoplasia [45%]. These estimates are derived from a prospective cross-sectional screening study of 10,000 individuals at average risk for colorectal cancer who were screened with both Cologuard and colonoscopy. (Yolanda Ascencio et al, N Engl J Med 2014;370(14):0269-9991.) Cologuard may produce a false negative or false positive result (no colorectal cancer or precancerous polyp present at colonoscopy follow up). A negative Cologuard test result does not guarantee the absence of CRC or advanced adenoma (pre-cancer). The current Cologuard screening interval is every 3 years. ([place] [employer] Society and U.S. Multi-Society Task Force). Cologuard performance data in a 10,000 patient pivotal study using colonoscopy as the reference method can be accessed at the following location: www.[employer]/results. Additional description of the Cologuard test process, warnings and precautions can be found at www.[employer].com. Stool specimen (specimen) 08/07/2023 10:00 AM EDT 08/08/2023 3:33 PM EDT us Azra Edwards MD LAB MOLECULAR DIAGNOSTICS ORDERA BLES Final Result [facility] (CLIA #:[id number]) [address] [place] [address], from Last 3 Months or Most Recently Relevant to Health Maintenance [place] [address] [place] [address] - [employer] Care Teams Betting Clerks Relationship Specialty Start Date End Date Azra Edwards MD [address] [place] [address] PCP - General Family Medicine 10/20/18 Joe Sneed, VinnyD [address] [place] [address] Pharmacist Internal Medicine 02/10/24
--- OUTSIDE RECORDS SUMMARY | 2024-12-03 11:52 | XMS_ITS | Encounter Summary ---
Author Organization [employer] Address [address] 7[address] [place] [address] Care Team Providers Care Graphic Arts Technician Name Role Phone Azra Vásquez MD Primary Care Provider [phone] Joe Sneed PharmD Unavailable Reason for Visit * Reason Comments Med Refill Encounter Details Date Type Department Care Team ([facility] st Contact Info) Description 06/27/2024 Refill [facility] [address] [place], [place] [phone] Monroe Morel MD [address] [place], [place] [phone] Social History Tobacco Use Types Packs/Day Years [...] Description 12/13/2024 11:00 AM EST Medication Management [facility] [address] [place] [phone] Joe Sneed, PharmSimona [address] [place] [phone] 01/18/2025 11:30 AM EDT Office Visit [facility] [address] [place] [phone] Azra Vásquez MD [address] [place] [phone] documented as of this encounter Goals Goal [...] documented as of this encounter Care Teams Graphic Arts Technician Relationship Specialty Start Date End Date Azra Vásquez MD [address] [place] [phone] PCP - General Family Medicine 10/20/18 Joe Sneed, PharmD [address] [place] [phone] Pharmacist Internal Medicine 02/10/24 documented as of this encounter
--- OUTSIDE RECORDS SUMMARY | 2024-12-03 11:52 | XMS_ITS | Encounter Summary ---
Author Organization [employer] Address [address] [facility] 7t [place] [address] Care Team Providers Care Assistant Controller Name Role Phone Azra Vásquez MD Primary Care Provider [phone] Joe Sneed PharmD Unavailable [phone] Reason for Referral * Consultation (Routine) - Authorized Specialty Diagnoses / Procedures Referred By Contac t Referred To Contact Pharmacy Diagnoses Essential hypertension Azra Vásquez MD [address] [place] [address] Phone: tel: fax: Referral ID Status Reason Start Date Expiration Date Visits Requested Visits Authorized [id number] Authorized Consult and Treat 10/22/2024 10/22/2025 6 6 Encounter Details Date Type Department Care Team (Late st Contact Info) Description 10/22/2024 Orders Only [facility] [address] [place], [place] [phone] Azra Vásquez MD [address] [place], [place] [phone] Essential hypertension (Primary Dx) Social History Tobacco Use Types [...] Description 12/13/2024 11:00 AM EST Medication Management [facility] [address] [place] [phone] Joe Sneed, PharmD [address] [place] [phone] 01/18/2025 11:30 AM EDT Office Visit [facility] [address] [place] [phone] Azra Vásquez MD [address] [place] [phone] Scheduled Referrals Name Type Priority Associated Diagnoses Orde r Schedule Referral to Pharmacy CDTM Outpatient Referral Routine Essential hypertension Ordered: 10/22/2024 documented as of this encounter Goals Goal Patient Goal Type Associated Problems Recent Progress Patient-Stated? Author Blood Pressure < 150/90 Blood Pressure 156/78(2024 11:30 AM EST) No Joe Sneed, PharmSimona Note: Per JNC-8 (Age 59+, no history of CKD or DM) documented as of this encounter Visit Diagnoses Diagnosis Essential hypertension- Primary Unspecified essential hypertension documented in this encounter Additional Health Concerns Assessment Noted Time PHQ-9 Depression Total Score: 25 024 10:28 AM EDT documented as of this encounter Care Teams Assistant Controller Relationship Specialty Start Date End Date Azra Vásquez MD [address] [place] [address] PCP - General Family Medicine 10/20/18 Joe Sneed, PharmD [address] [place] [address] Pharmacist Internal Medicine 02/10/24 documented as of this encounter
--- OUTSIDE RECORDS SUMMARY | 2024-12-03 11:52 | XMS_ITS | Encounter Summary ---
Author Organization [employer] Address [address] [facility] 7t [place] [address] Care Team Providers Care Field Staff Name Role Phone Azra Vásquez MD Primary Care Provider [phone] Joe Sneed PharmD Unavailable [phone] Reason for Visit * Reason Comments Med Refill Encounter Details Date Type Department Care Team ([facility] st Contact Info) Description 08/24/2023 Refill [facility] [address] [place], [place] [phone] Azra Vásquez MD [address] [place], [place] [phone] Social History Tobacco Use Types Packs/Day Years Used Date Smoking Tobacco: Never Passive Smoke Exposure: Never Smokeless Tobacco: Never Depression Answer Date Recorded Patient Health Questionnaire-9 Score 10 01/09/2023 Housing Stability Answer Date Recorded What is [...] Medication Management [facility] [address] [place] [phone] Joe Sneed, PharmSimona [address] [place] [phone] 01/18/2025 11:30 AM EDT Office Visit [facility] [address] [place] [phone] Azra Vásquez MD [address] [place] [address] documented as of this encounter Visit Diagnoses Not on filedocumented in this encounter Additional Health Concerns Assessment Noted Time PHQ-9 Depression Total Score: 10 023 9:12 AM EDT documented as of this encounter Care Teams Field Staff Relationship Specialty Start Date End Date Azra Vásquez MD [address] [place] [phone] PCP - General Family Medicine 10/20/18 Joe Sneed, PharmD [address] [place] [address] [phone] Pharmacist Internal Medicine 02/10/24 documented as of this encounter
--- OUTSIDE RECORDS SUMMARY | 2024-12-03 11:52 | XMS_ITS | Encounter Summary ---
Author Organization [employer] Address [address] [facility] 7t [place] [address] Care Team Providers Care Manager Education Name Role Phone Azra Vásquez MD Primary Care Provider [phone] Joe Sneed PharmD Unavailable [phone] Reason for Visit * Reason Onset Date Comments Appointment Request 05/28/2024 Encounter Details Date Type Department Care Team ([facility] st Contact Info) Description 05/28/[address] [facility] [address] [place], [place] [phone] Azra Vásquez MD [address] [place], [place] [phone] Appointment Request Social History Tobacco Use Types [...] encounter Miscellaneous Notes * Telephone Encounter - Bryant Bravo - 05/28/2024 10:46 AM EDT Tc from patient calling to reschedule appt from 05/13 however there was no availability documented in this encounter Plan of Treatment Upcoming Encounters Date Type Department Care Team (Late st Contact Info) Description 12/13/2024 11:00 AM EST Medication Management [address] [address] Joe Sneed, PharmD [address] [place] [phone] 01/18/2025 11:30 AM EDT Office Visit [facility] [address] [place] [phone] Azra Vásquez MD [address] [place] [address] documented as of this encounter Goals Goal [...] as of this encounter Care Teams Manager Education Relationship Specialty Start Date End Date Azra Vásquez MD [address] [place] [address] PCP - General Family Medicine 10/20/18 Joe Sneed, Uyen [address] [place] [address] Pharmacist Internal Medicine 02/10/24 documented as of this encounter
== END 2024-12-03 11:32 | disposition home or self-care (01) ==
PROVIDERS: PCP Family Medicine; Visit Provider Nurse Practitioner Family
DX: R10.13 Epigastric pain (principal); K21.9 Gastro-esophageal reflux disease without esophagitis; R14.0 Abdominal distension (gaseous); K59.01 Slow transit constipation
CPT/HCPCS: 99214; G2211

== ENCOUNTER → 2024-12-03 10:54 | Outpatient (BNVA) | payer OTHER, SELFPAY | PROVIDERS: PCP Family Medicine; Visit Provider Nurse Practitioner Family | DX: K21.9 Gastro-esophageal reflux disease without esophagitis (principal); R10.13 Epigastric pain; R14.0 Abdominal distension (gaseous); K59.01 Slow transit constipation | CPT/HCPCS: 99212 ==

== ENCOUNTER 2025-01-18 12:03 | Outpatient (REF) | payer OTHER, SELFPAY ==
[2025-01-18 14:18] LABS: Free T4 (Free Thyroxine) 0.77 ng/dL (0.71-1.85); Thyroid Stimulating Hormone 3.52 uIU/mL (0.32-4.0)
--- OUTSIDE RECORDS SUMMARY | 2025-01-18 14:22 | XMS_ITS | Encounter Summary ---
Author Organization [employer] Address [address] [facility] [address] [place] [address] Care Team Providers Care Cleaning Team Member Name Role Phone Azra Vásquez MD Primary Care Provider [phone] Joe Sneed PharmD Unavailable [phone] Encounter Details Date Type Department Care Team (Late st Contact Info) Description 11/11/[address] 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 [address] [place] [address] Joe Sneed PharmD [address] [place], [place] [phone] documented as of this encounter Goals Goal Patient Goal Type Associated Problems Recent Progress Patient-Stated? Author Blood Pressure < 150/90 Blood Pressure 138/70(2024 11:47 AM EDT) No Joe Sneed, PharmD Note: Per JNC-8 (Age 59+, no history of CKD or DM) documented as of this encounter Procedures Procedure Name Priority Date/Time Associated Diagnosis Comments TSH Routine 01/18/2025 12:05 PM EDT 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 Low TSH level T4, FREE Routine 01/18/2025 12:05 PM EDT 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 Low TSH level documented in this encounter Results * T4, Free (01/18/2025 12:05 PM EDT) Free T4 (Free Thyroxine) 0.77 0.71 - 1.85 ng/dL [facility] Blood Venous blood specimen / Unknown 01/18/2025 12:05 PM EDT 01/18/2025 1:15 PM EDT us Azra Vásquez MD LAB BLOOD ORDERABLES Final Resul t Performing Organization Address [facility] Co de Phone Number [facility] [address] [place] [phone] * TSH (01/18/2025 12:05 PM EDT) Thyroid Stimulating Hormone 3.52 0.32 - 4.0 uIU/mL [facility] Comment:Note: A sustained TS H level above 2.5 uIU/mL may warrant further investigation. TSH 3rd Generation ([facility]) Blood Venous blood specimen / Unknown 01/18/2025 12:05 PM EDT 01/18/2025 1:15 PM EDT Azra Vásquez MD LAB BLOOD ORDERABLES Final Resul t Performing Organization Address [facility] Co de Phone Number [facility] [address] [place] [phone] documented in this encounter Visit Diagnoses Diagnosis 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- Primary Low TSH level documented in this encounter Additional Health Concerns Assessment Noted Time PHQ-9 Depression Total Score: 27 025 12:14 PM EST documented as of this encounter Care Teams Cleaning Team Member Relationship Specialty Start Date End Date Azra Vásquez MD [address] [place] [address] PCP - General Family Medicine 10/20/18 Joe Sneed, VinnyD [address] [place] [address] Pharmacist Internal Medicine 02/10/24 documented as of this encounter
--- OUTSIDE RECORDS SUMMARY | 2025-01-18 14:22 | XMS_ITS | Encounter Summary ---
Author Organization [employer] Address [address] [facility] 7t [place] [address] Care Team Providers Care Facility Maintenance Manager Name Role Phone Azra Vásquez MD Primary Care Provider [phone] Joe Sneed PharmD Unavailable [phone] Reason for Visit * Reason Onset Date Comments Appointment Request 05/28/2024 Encounter Details Date Type Department Care Team ([facility] st Contact Info) Description 05/28/2024 Telephone [facility] 230 [place], [place] [phone] Azra Vásquez MD 230 [place], [place] [phone] Appointment Request Social History Tobacco Use Types [...] Description 02/14/2025 10:00 AM EDT Medication Management [facility] 230 [place] [address] Joe Sneed, Uyen 230 [place] [address] documented as of this encounter Goals Goal Patient Goal Type Associated Problems Recent Progress Patient-Stated? Author Blood Pressure < 150/90 Blood Pressure 138/70(2024 11:47 AM EDT) No Joe Sneed, Uyen Note: Per JNC-8 (Age 59+, no history of CKD or DM) documented as of this encounter Visit Diagnoses Not on filedocumented in this encounter Additional Health Concerns Assessment Noted Time PHQ-9 Depression Total Score: 25 024 10:28 AM EDT documented as of this encounter Care Teams Facility Maintenance Manager Relationship Specialty Start Date End Date Azra Vásquez MD 230 [place] [address] PCP - General Family Medicine 10/20/18 Joe Sneed, VinnyD 230 [place] [address] Pharmacist Internal Medicine 02/10/24 documented as of this encounter
--- OUTSIDE RECORDS SUMMARY | 2025-01-18 14:22 | XMS_ITS | Encounter Summary ---
Author Organization [employer] Address [address] [facility] [address] 7t [place] [address] Care Team Providers Care Medical Research Scientist Name Role Phone Azra Vásquez MD Primary Care Provider [phone] Joe Sneed PharmD Unavailable [phone] Encounter Details Date Type Department Care Team (Latest Contact Info) Description 01/18/2025 Travel Social History Tobacco Use Types Packs/Day Years [...] Description 02/14/2025 10:00 AM EDT Medication Management [facility] MED[facility]INE 230 [place] [address] Joe Sneed, Uyen 230 [place] [address] documented as of this encounter Goals Goal [...] documented as of this encounter Care Teams Medical Research Scientist Relationship Specialty Start Date End Date Azra Vásquez MD [address] [place] [address] PCP - General Family Medicine 10/20/18 Joe Sneed, PharmD [address] [place] [address] Pharmacist Internal Medicine 02/10/24 documented as of this encounter
--- OUTSIDE RECORDS SUMMARY | 2025-01-18 14:22 | XMS_ITS | Encounter Summary ---
Author Organization [employer] Address [address] [facility] [address] 7t [place] [address] Care Team Providers Care Provider Contracting Consultant Name Role Phone Azra Vásquez MD Primary Care Provider [phone] Joe Sneed PharmD Unavailable [phone] Reason for Visit * Reason Comments Med Refill Encounter Details Date Type Department Care Team ([facility] st Contact Info) Description 01/31/2024 Refill [facility] 230 [place], [place] [phone] Monroe Morel MD 230 [place], [place] [phone] Social History Tobacco Use Types Packs/Day Years [...] Description 02/14/2025 10:00 AM EDT Medication Management [facility] 230 [place] [address] Joe Sneed PharmD 230 [place] [address] documented as of this encounter Goals Goal Patient Goal Type Associated Problems Recent Progress Patient-Stated? Author Blood Pressure < 150/90 Blood Pressure 138/70(2024 11:47 AM EDT) No Joe Sneed PharmD Note: Per JNC-8 (Age 59+, no history of CKD or DM) documented as of this encounter Visit Diagnoses Not on filedocumented in this encounter Additional Health Concerns Assessment Noted Time PHQ-9 Depression Total Score: 24 024 11:08 AM EST documented as of this encounter Care Teams Provider Contracting Consultant Relationship Specialty Start Date End Date Azra Vásquez MD [address] [place] [address] PCP - General Family Medicine 10/20/18 Joe Sneed, Uyen [address] [place] [address] Pharmacist Internal Medicine 02/10/24 documented as of this encounter
--- OUTSIDE RECORDS SUMMARY | 2025-01-18 14:22 | XMS_ITS | Encounter Summary ---
Author Organization [employer] Address [address] [facility] 7t [place] [address] Care Team Providers Care Cross Country And Track And Field Coach Name Role Phone Azra Vásquez MD Primary Care Provider [phone] Joe Sneed PharmD Unavailable [phone] Reason for Visit * Reason Comments Follow-up HtN Encounter Details Date Type Department Care Team ([facility] st Contact Info) Description 01/18/2025 11:30 AM EDT Office Visit [facility] MED[facility]INE 230 [place], [place] [phone] Azra Vásquez MD 230 [place], [place] [phone] Essential hypertension (Primary Dx); Gastroesophageal reflux disease without esophagitis; Tubular adenoma of colon; Moderate persistent asthma without complication; SKIP (generalized anxiety disorder); Chronic depression; PTSD (post-traumatic stress disorder); 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; Prediabetes; Fibromyalgia; Osteopenia, unspecified location; Dysuria Social History Tobacco Use Types Packs/Day Years [...] the past 12 months, has t he [employer], gas, oil or water company threatened to [...] AM EDT documented as of this encounter Last Filed Vital Signs Vital Sign Reading Time Taken Comments Blood Pressure 138/70 01/18/2025 11:47 AM EDT Pulse 93 01/18/2025 11:18 AM EDT Temperature 36.1 ??C (97 ??F) 01/18/2025 11:18 AM EDT Respiratory Rate 17 01/18/2025 11:18 AM EDT Oxygen Saturation 93% 01/18/2025 11:18 AM EDT Inhaled Oxygen Concentration - - Weight 75.8 kg (167 lb) 01/18/2025 11:18 AM EDT Height 147.3 cm (4' 10 ) 01/18/2025 11:18 AM EDT Body Mass Index 34.9 01/18/2025 11:18 AM EDT documented in this encounter Plan of Treatment Upcoming Encounters Date Type Department Care Team (Late st Contact Info) Description 02/14/2025 10:00 AM EDT Medication Management [facility] MEDICINE 230 [place], [place] [phone] Joe Sneed, PharmD 230 [place], [place] [phone] Scheduled Orders Name Type Priority Associated Diagnoses Orde r Schedule Culture, Urine, Routine Microbiology Routine Dysuria Expected: 01/18/2025 (Approximate), Expires: 01/18/2026 Urinalysis Complete Lab Routine Dysuria Expected: 01/18/2025, Expires: 01/18/2026 documented as of this encounter Goals Goal Patient Goal Type Associated Problems Recent Progress Patient-Stated? 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
--- OUTSIDE RECORDS SUMMARY | 2025-01-18 14:22 | XMS_ITS | Encounter Summary ---
Author Organization [employer] Address 75 [facility] 7t [place] [address] Care Team Providers Care Band Saw Operator Cake Cutting Name Role Phone Azra Vásquez MD Primary Care Provider [phone] Joe Sneed PharmD Unavailable [phone] Reason for Visit * Reason Onset Date Comments Appointment Request 11/26/2024 Encounter Details Date Type Department Care Team ([facility] st Contact Info) Description 11/26/2024 Telephone [facility]INE 230 [place], [place] [phone] Azra Vásquez MD [address] [place], [place] [phone] Appointment Request Social History Tobacco Use Types [...] Description 02/14/2025 10:00 AM EDT Medication Management [facility] 230 [place] [address] Joe Sneed, PharmD [address] [place] [address] documented as of this encounter Goals Goal [...] documented as of this encounter Care Teams Band Saw Operator Cake Cutting Relationship Specialty Start Date End Date Azra Vásquez MD [address] [place] [address] PCP - General Family Medicine 10/20/18 Joe Sneed, VinnyD [address] [place] [address] Pharmacist Internal Medicine 02/10/24 documented as of this encounter
--- OUTSIDE RECORDS SUMMARY | 2025-01-18 14:22 | XMS_ITS | Encounter Summary ---
Author Organization [employer] Address [address] [facility] 7t [place] [address] Care Team Providers Care Instructional Writer Name Role Phone Azra Vásquez MD Primary Care Provider [phone] Joe Sneed PharmD Unavailable [phone] Reason for Referral * Consultation (Routine) - Authorized Specialty Diagnoses / Procedures Referred By Contac t Referred To Contact Pharmacy Diagnoses Essential hypertension Azra Vásquez MD [address] [place] [address] Phone: tel: fax: Referral ID Status Reason Start Date Expiration Date Visits Requested Visits Authorized [id number] Authorized Consult and Treat 10/22/2024 10/22/2025 6 6 Encounter Details Date Type Department Care Team (Late st Contact Info) Description 10/22/[address] [facility] MEDICINE [address] [place], [place] [phone] Azra Vásquez MD [address] [place], [place] [phone] Essential hypertension (Primary Dx) Social History Tobacco [...] 02/14/2025 10:00 AM EDT Medication Management [facility] MEDIC[facility] 230 [place] [address] Joe Sneed PharmD [address] [place] [address] Scheduled Referrals Name Type Priority Associated Diagnoses [...] documented as of this encounter Care Teams Instructional Writer Relationship Specialty Start Date End Date Azra Vásquez MD [address] [place] [address] PCP - General Family Medicine 10/20/18 Joe Sneed, VinnyD [address] [place] [address] Pharmacist Internal Medicine 02/10/24 documented as of this encounter
--- OUTSIDE RECORDS SUMMARY | 2025-01-18 14:22 | XMS_ITS | Encounter Summary ---
Author Organization [employer] [facility] Address [address] [facility] 7t [place] [address] Care Team Providers Care Architecture Analyst Name Role Phone Azra Vásquez MD Primary Care Provider [phone] Joe Sneed PharmD Unavailable [phone] Reason for Visit * Reason Comments Med Refill Encounter Details Date Type Department Care Team (Late st Contact Info) Description 11/21/2022 Refill [facility]INE 230 [place], [place] [phone] Azra Vásquez MD 230 [place] [address] Social History Tobacco Use Types Packs/Day Years [...] Description 02/14/2025 10:00 AM EDT Medication Management [facility]INE 230 [place], [place] [phone] Joe Sneed, PharmD 230 [place], [place] [phone] documented as of this encounter Visit Diagnoses Not on filedocumented in this encounter Care Teams Architecture Analyst Relationship Specialty Start Date End Date Azra Vásquez MD 230 [place] [address] PCP - General Family Medicine 10/20/18 Joe Sneed, PharmD [address] [place] [address] [place] [address] Pharmacist Internal Medicine 02/10/24 documented as of this encounter
--- OUTSIDE RECORDS SUMMARY | 2025-01-18 14:22 | XMS_ITS | Encounter Summary ---
Author Organization [employer] Address [address] [facility] 7t [place] [address] Care Team Providers Care Director Of Business Systems Name Role Phone Azra Vásquez MD Primary Care Provider [phone] Joe Sneed PharmD Unavailable Reason for Visit * Reason Comments Med Refill Encounter Details Date Type Department Care Team ([facility] st Contact Info) Description 01/11/2025 Refill [facility] MEDICINE 230 [place], [place] [phone] Joe Sneed, PharmD 230 [place], [place] [phone] Essential hypertension Social History Tobacco Use Types Packs/Day Years [...] Description 02/14/2025 10:00 AM EDT Medication Management [facility] MED[facility]INE 230 [place], [place] [phone] Joe Sneed PharmD 230 [place] [address] documented as of this encounter Goals Goal Patient Goal Type Associated Problems Recent Progress Patient-Stated? Author Blood Pressure < 150/90 Blood Pressure 138/70(2024 11:47 AM EDT) No oJe Sneed, Uyen Note: Per JNC-8 (Age 59+, no history of CKD or DM) documented as of this encounter Visit Diagnoses Diagnosis Essential hypertension Unspecified essential hypertension documented in this encounter Additional Health Concerns Assessment Noted Time PHQ-9 Depression Total Score: 27 025 12:14 PM EST documented as of this encounter Care Teams Director Of Business Systems Relationship Specialty Start Date End Date Azra Vásquez MD 230 [place], [place] [phone] PCP - General Family Medicine 10/20/18 Joe Sneed, Uyen [address] [place] [address] [phone] Pharmacist Internal Medicine 02/10/24 documented as of this encounter
--- OUTSIDE RECORDS SUMMARY | 2025-01-18 14:22 | XMS_ITS | Encounter Summary ---
Author Organization [employer] Address [address] [facility] [address] 7t [place] [address] Care Team Providers Care Farm Machinery Engine Mechanic Name Role Phone Azra Vásquez MD Primary Care Provider [phone] Joe Sneed PharmD Unavailable [phone] Reason for Visit * Reason Comments Med Refill Encounter Details Date Type Department Care Team ([facility] st Contact Info) Description 06/27/[address] [facility] 230 [place], [place] [phone] Monroe Morel MD 230 [place], [place] [phone] Social History Tobacco Use Types Packs/Day Years [...] 02/14/2025 10:00 AM EDT Medication Management [facility] 230 [place] [address] Joe Sneed PharmD 230 [place] [address] documented as of this encounter Goals Goal [...] documented as of this encounter Care Teams Farm Machinery Engine Mechanic Relationship Specialty Start Date End Date Azra Vásquez MD [address] [place] [address] [phone] PCP - General Family Medicine 10/20/18 Joe Sneed, Uyen [address] [place] [address] Pharmacist Internal Medicine 02/10/24 documented as of this encounter
--- OUTSIDE RECORDS SUMMARY | 2025-01-18 14:22 | XMS_ITS | Encounter Summary ---
Author Organization [facility] Address 75 [facility] 7t [place] [address] Care Team Providers Care Broadcast Engineer Name Role Phone Azra Vásquez MD Primary Care Provider [phone] Joe Sneed PharmD Unavailable [phone] Reason for Visit * Reason Comments Med Refill Encounter Details Date Type Department Care Team (Late st Contact Info) Description 03/23/2023 Refill [facility] 230 [place], [place] [phone] Sheree Alford MD 230 [place], [place] [phone] Social History Tobacco Use Types Packs/Day Years [...] Description 02/14/2025 10:00 AM EDT Medication Management [facility] 230 [place], [place] [phone] Joe Sneed, PharmD 230 [place] [address] documented as of this encounter Visit Diagnoses Not on filedocumented in this encounter Additional Health Concerns Assessment Noted Time PHQ-9 Depression Total Score: 10 023 9:12 AM EDT documented as of this encounter Care Teams Broadcast Engineer Relationship Specialty Start Date End Date Azra Vásquez MD 230 [place] [address] PCP - General Family Medicine 10/20/18 Joe Sneed, VinnyD [address] [place] [address] Pharmacist Internal Medicine 02/10/24 documented as of this encounter
--- OUTSIDE RECORDS SUMMARY | 2025-01-18 14:22 | XMS_ITS | Encounter Summary ---
Author Organization [employer] Address [address] [facility] [address] 7t [place] [address] Care Team Providers Care Mechanical Reliability Engineer Name Role Phone Azra Vásquez MD Primary Care Provider Joe Sneed PharmD Unavailable [phone] Encounter Details Date Type Department Care Team (Late st Contact Info) Description 08/31/2024 Orders Only [facility] MEDICINE 230 [place], [place] [phone] Azra Vásquez MD 230 [place], [place] [phone] Social History Tobacco Use Types Packs/Day Years [...] Description 02/14/2025 10:00 AM EDT Medication Management [facility] MEDICINE 230 [place] [address] Joe Sneed, Uyen 230 [place], [place] [phone] documented as of this encounter Goals Goal [...] documented as of this encounter Care Teams Mechanical Reliability Engineer Relationship Specialty Start Date End Date Azra Vásquez MD [address] [place] [address] [phone] PCP - General Family Medicine 10/20/18 Joe Sneed, VinnyD [address] [place] [address] [phone] Pharmacist Internal Medicine 02/10/24 documented as of this encounter
--- OUTSIDE RECORDS SUMMARY | 2025-01-18 14:22 | XMS_ITS | Encounter Summary ---
Author Organization [employer] [facility] Address [address] [facility] 7t [place] [address] Care Team Providers Care Train Brakeman Name Role Phone Azra Vásquez MD Primary Care Provider [phone] Joe Sneed PharmD Unavailable [phone] Reason for Visit * Reason Comments Med Refill Encounter Details Date Type Department Care Team (Late st Contact Info) Description 12/25/2022 Refill [facility] MEDICINE 230 [place], [place] [phone] Azra Vásquez MD 230 [place] [address] Social History Tobacco Use Types Packs/Day Years [...] Description 02/14/2025 10:00 AM EDT Medication Management [facility] MED[facility]INE 230 [place] [address] Joe Sneed, PharmD 230 [place], [place] [phone] documented as of this encounter Visit Diagnoses Not on filedocumented in this encounter Care Teams Train Brakeman Relationship Specialty Start Date End Date Azra Vásquez MD 230 [place] [address] PCP - General Family Medicine 10/20/18 Joe Sneed, PharmD [address] [place] [address] [place] [address] Pharmacist Internal Medicine 02/10/24 documented as of this encounter
--- OUTSIDE RECORDS SUMMARY | 2025-01-18 14:22 | XMS_ITS | Encounter Summary ---
Author Organization [employer] Address 75 [facility] 7t [place] [address] Care Team Providers Care Search Developer Name Role Phone Azra Vásquez MD Primary Care Provider [phone] Joe Sneed PharmD Unavailable [phone] Reason for Visit * Reason Comments Med Refill Encounter Details Date Type Department Care Team ([facility] st Contact Info) Description 08/24/2023 Refill [facility] MEDICINE 230 [place], [place] [phone] Azra Vásquez MD 230 [place], [place] [phone] Social History Tobacco Use Types Packs/Day Years [...] Description 02/14/2025 10:00 AM EDT Medication Management [facility] MEDICINE 230 [place] [address] Joe Sneed, PharmD 230 [place] [address] documented as of this encounter Visit Diagnoses Not on filedocumented in this encounter Additional Health Concerns Assessment Noted Time PHQ-9 Depression Total Score: 10 023 9:12 AM EDT documented as of this encounter Care Teams Search Developer Relationship Specialty Start Date End Date Azra Vásquez MD 230 [place] [address] PCP - General Family Medicine 10/20/18 Joe Sneed, PharmD [address] [place] [address] Pharmacist Internal Medicine 02/10/24 documented as of this encounter
--- OUTSIDE RECORDS SUMMARY | 2025-01-18 14:22 | XMS_ITS | Encounter Summary ---
Author Organization [employer] [facility] Address 75 [facility] 7t [place] [address] Care Team Providers Care Camera Operator Name Role Phone Azra Vásquez MD Primary Care Provider [phone] Joe Sneed PharmD Unavailable [phone] Encounter Details Date Type Department Care Team (Late st Contact Info) Description 11/18/2022 Orders Only [facility] MEDICINE [address] [place] [address] Olimpia Damon LPN Social History Tobacco Use [...] Description 02/14/2025 10:00 AM EDT Medication Management [facility] [address] [place] [address] Joe Sneed, PharmD 230 [place] [address] documented as of this encounter Visit Diagnoses Not on filedocumented in this encounter Care Teams Camera Operator Relationship Specialty Start Date End Date Azra Vásquez MD [address] [place] [address] PCP - General Family Medicine 10/20/18 Joe Sneed, PharmD 230 [place] [address] Pharmacist Internal Medicine 02/10/24 documented as of this encounter
--- OUTSIDE RECORDS SUMMARY | 2025-01-18 14:22 | XMS_ITS | Encounter Summary ---
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 (Primary Dx) [...] 10:00 AM EDT Medication Management [facility] 230 [place] [address] Joe Sneed PharmD [address] [place] [address] documented as of this encounter Goals Goal [...] Free T4 0.04(L) 0.32 - 4.0 uIU/mL [facility] Blood 11/11/2024 9:25 AM EST 11/11/2024 11:20 AM EST us Azra Vásquez MD LAB BLOOD ORDERABLES Final Resul t [facility] [address] [place] [address] [phone] documented in this encounter Visit Diagnoses Diagnosis 

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
== END 2025-01-18 12:04 | disposition home or self-care (01) ==
LOC: HO.HHCL 12:03
PROVIDERS: Visit Provider Family Medicine
DX: E06.3 Autoimmune thyroiditis (principal); R79.89 Other specified abnormal findings of blood chemistry
CPT/HCPCS: 36415; 84439; 84443

== ENCOUNTER 2025-01-20 12:55 | Outpatient (REF) | payer OTHER, SELFPAY ==
--- OUTSIDE RECORDS SUMMARY | 2025-01-20 14:04 | XMS_ITS | Encounter Summary ---
Author Organization [employer] Address [address] [facility] [address] [place] [address] Care Team Providers Care Structural Steel Detailer Name Role Phone Azra Vásquez MD Primary Care Provider [phone] Joe Sneed PharmD Unavailable [phone] Reason for Visit * Reason Comments Med Refill Encounter Details Date Type Department Care Team ([facility] st Contact Info) Description 01/11/2025 Refill [facility] [address] [place], [place] [phone] Joe Sneed, PharmD [address] [place], [place] [phone] Essential hypertension Social History Tobacco Use Types [...] Description 02/14/2025 10:00 AM EDT Medication Management [facility] [address] [place], [place] [phone] Joe Sneed PharmD [address] [place] [address] documented as of this encounter Goals Goal [...] documented as of this encounter Care Teams Structural Steel Detailer Relationship Specialty Start Date End Date Azra Vásquez MD [address], [place] [phone] PCP - General Family Medicine 10/20/18 Joe Sneed, Uyen [address] [place] [address] [phone] Pharmacist Internal Medicine 02/10/24 documented as of this encounter
--- OUTSIDE RECORDS SUMMARY | 2025-01-20 14:05 | XMS_ITS | Encounter Summary ---
Author Organization [employer] Address [address] [facility] 7t [place] [address] Care Team Providers Care Bioinformatics Support Specialist Name Role Phone Azra Vásquez MD Primary Care Provider [phone] Joe Sneed PharmD Unavailable [phone] Reason for Visit * Reason Comments Med Refill Encounter Details Date Type Department Care Team ([facility] st Contact Info) Description 08/24/2023 Refill [facility] [address] [place], [place] [phone] Azra Vásquez MD [address], [place] [phone] Social History Tobacco Use Types Packs/Day Years [...] Description 02/14/2025 10:00 AM EDT Medication Management [facility] [address] [place] [address] Joe Sneed, PharmD [address] [place] [address] documented as of this encounter Visit Diagnoses Not on filedocumented in this encounter Additional Health Concerns Assessment Noted Time PHQ-9 Depression Total Score: 10 023 9:12 AM EDT documented as of this encounter Care Teams Bioinformatics Support Specialist Relationship Specialty Start Date End Date Azra Vásquez MD [address] [place] [address] PCP - General Family Medicine 10/20/18 Joe Sneed, PharmD [address] [place] [phone] Pharmacist Internal Medicine 02/10/24 documented as of this encounter
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
--- OUTSIDE RECORDS SUMMARY | 2025-01-20 14:05 | XMS_ITS | Encounter Summary ---
Author Organization [facility] Address [address] [place] [address] Care Team Providers Care Fnps Name Role Phone Azra Vásquez MD Primary Care Provider [phone] Joe Sneed PharmD Unavailable [phone] Reason for Visit * Reason Comments Med Refill Encounter Details Date Type Department Care Team (Late st Contact Info) Description 12/25/2022 Refill [facility] [address] [place], [place] [phone] Azra Vásquez MD [address] [place] [address] Social History Tobacco Use Types Packs/Day Years [...] Description 02/14/2025 10:00 AM EDT Medication Management [facility] [address] [place] [address] Joe Sneed, PharmD [address] [place], [place] [phone] documented as of this encounter Visit Diagnoses Not on filedocumented in this encounter Care Teams Fnps Relationship Specialty Start Date End Date Azra Vásquez MD [address] [place] [address] PCP - General Family Medicine 10/20/18 Joe Sneed, PharmD [address] [place] [address] [place] [address] Pharmacist Internal Medicine 02/10/24 documented as of this encounter
--- OUTSIDE RECORDS SUMMARY | 2025-01-20 14:05 | XMS_ITS | Encounter Summary ---
Author Organization [employer] Address [address] [facility] [address] 7t [place] [address] Care Team Providers Care Waste Management Engineer Name Role Phone Azra Vásquez MD Primary Care Provider [phone] Joe Sneed PharmD Unavailable Reason for Visit * Reason Comments Med Refill Encounter Details Date Type Department Care Team ([facility] st Contact Info) Description 06/27/2024 Refill [facility] 230 [place], [place] [phone] Monroe Morel MD 230 [place], [place] [phone] Social History Tobacco Use Types Packs/Day Years [...] Description 02/14/2025 10:00 AM EDT Medication Management [facility] MEDICINE 230 [place] [address] Joe Sneed PharmD 230 [place] [address] documented as of this encounter Goals Goal [...] documented as of this encounter Care Teams Waste Management Engineer Relationship Specialty Start Date End Date Azra Vásquez MD [address] [place] [address] [phone] PCP - General Family Medicine 10/20/18 Joe Sneed, Uyen [address] [place] [address] Pharmacist Internal Medicine 02/10/24 documented as of this encounter
--- OUTSIDE RECORDS SUMMARY | 2025-01-20 14:05 | XMS_ITS | Encounter Summary ---
Author Organization [facility] Address 75 [facility] 7t [place] [address] Care Team Providers Care Silver Spray Worker Name Role Phone Azra Vásquez MD Primary Care Provider [phone] Joe Sneed PharmD Unavailable [phone] Encounter Details Date Type Department Care Team (Late st Contact Info) Description 11/18/2022 Orders Only [facility] MEDICINE [address] [place] [address] Olimpia Damon LPN Social History Tobacco Use [...] Description 02/14/2025 10:00 AM EDT Medication Management [facility] MEDICINE [address] [place] [address] Joe Sneed, PharmD 230 [place] [address] documented as of this encounter Visit Diagnoses Not on filedocumented in this encounter Care Teams Silver Spray Worker Relationship Specialty Start Date End Date Azra Vásquez MD [address] [place] [address] PCP - General Family Medicine 10/20/18 Joe Sneed, PharmD 230 [place] [address] Pharmacist Internal Medicine 02/10/24 documented as of this encounter
--- OUTSIDE RECORDS SUMMARY | 2025-01-20 14:05 | XMS_ITS | Encounter Summary ---
Author Organization [employer] Address 75 [facility] 7t [place] [address] Care Team Providers Care Shoe Dresser Name Role Phone Azra Vásquez MD Primary Care Provider [phone] Joe Sneed PharmD Unavailable [phone] Reason for Referral * Consultation (Routine) - Authorized Specialty Diagnoses / Procedures Referred By Contac t Referred To Contact Pharmacy Diagnoses Essential hypertension Azra Vásquez MD 230 [place] [address] Phone: tel: fax: Referral ID Status Reason Start Date Expiration Date Visits Requested Visits Authorized [id number] Authorized Consult and Treat 10/22/2024 10/22/2025 6 6 Encounter Details Date Type Department Care Team (Late st Contact Info) Description 10/22/2024 Orders Only [facility] MED[facility]INE 230 [place], [place] [phone] Azra Vásquez MD 230 [place], [place] [phone] Essential hypertension (Primary Dx) Social History Tobacco [...] Description 02/14/2025 10:00 AM EDT Medication Management [facility] MEDICINE 230 [place] [address] Joe Sneed PharmD 230 [place] [address] Scheduled Referrals Name Type Priority Associated Diagnoses [...] documented as of this encounter Care Teams Shoe Dresser Relationship Specialty Start Date End Date Azra Vásquez MD 230 [place] [address] PCP - General Family Medicine 10/20/18 Joe Sneed, VinnyD 230 [place] [address] Pharmacist Internal Medicine 02/10/24 documented as of this encounter
--- OUTSIDE RECORDS SUMMARY | 2025-01-20 14:05 | XMS_ITS | Encounter Summary ---
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) [...] Description 02/14/2025 10:00 AM EDT Medication Management [facility] MED[facility]INE 230 [place] [address] Joe Sneed PharmD 230 [place] [address] documented as of this encounter Goals Goal [...] Free T4 0.04(L) 0.32 - 4.0 uIU/mL [facility] Blood 11/11/2024 9:25 AM EST 11/11/2024 11:20 AM EST us Azra Vásquez MD LAB BLOOD ORDERABLES Final Resul t [facility] [address] [place] [address] [phone] documented in this encounter Visit Diagnoses Diagnosis 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
--- OUTSIDE RECORDS SUMMARY | 2025-01-20 14:05 | XMS_ITS | Encounter Summary ---
Author Organization [facility] [facility] Address 75 [facility] 7t [place] [address] Care Team Providers Care Ladle Car Operator Name Role Phone Azra Vásquez MD Primary Care Provider [phone] Joe Sneed PharmD Unavailable [phone] Reason for Visit * Reason Comments Med Refill Encounter Details Date Type Department Care Team (Late st Contact Info) Description 11/21/2022 Refill [facility] MED[facility]INE 230 [place], [place] [phone] Azra Vásquez MD 230 [place] [address] Social History Tobacco Use Types Packs/Day Years [...] Description 02/14/2025 10:00 AM EDT Medication Management [facility] MEDICINE 230 [place], [place] [phone] Joe Sneed, PharmD 230 [place], [place] [phone] documented as of this encounter Visit Diagnoses Not on filedocumented in this encounter Care Teams Ladle Car Operator Relationship Specialty Start Date End Date Azra Vásquez MD 230 [place] [address] PCP - General Family Medicine 10/20/18 Joe Sneed, PharmD [address] [place] [address] [place] [address] Pharmacist Internal Medicine 02/10/24 documented as of this encounter
--- OUTSIDE RECORDS SUMMARY | 2025-01-20 14:05 | XMS_ITS | Encounter Summary ---
Author Organization [employer] Address 75 [facility] 7t [place] [address] Care Team Providers Care Director Of Category Management Name Role Phone Azra Vásquez MD Primary Care Provider [phone] Joe Sneed PharmD Unavailable [phone] Reason for Visit * Reason Comments Follow-up HtN Encounter Details Date Type Department Care Team ([facility] st Contact Info) Description 01/18/2025 11:30 AM EDT Office Visit [facility] 230 [place], [place] [phone] Azra Vásquez MD 230 [place], [place] [phone] Essential hypertension (Primary Dx); Gastroesophageal reflux disease [...] the past 12 months, has t he [employer] oil or water [employer] threatened to shut off services in your [...] 11:18 AM EDT documented in this encounter Miscellaneous Notes * Assessment & Plan Note - Danica Soto MA - 01/19/2025 9:25 AM EDTAssociated Problem(s): Chronic depression - [facility] provider: Dr. 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 Normal free T4. - Likely due to her new medications - Current replacement levothyroxine 75 mcg everyday. - Recheck thyroid function test. If TSH is low again, consider readjusting to 67.5 mg daily. Eitheruse one 67.5 mcg pill or 1/2 of 112 mcg. * Assessment & Plan Note - Danica Soto MA - 01/19/2025 9:24 AM EDTAssociated Problem(s): Osteopenia - DEXA scan on 02/26/22 Showed the lowest T-score of -2.2 in left femoral neck - DEXA scan on 08/24/24 showed the lowest T-score of -2.3 in femoral neck - Started on alendronate since Aug 2024 - Continue weight bearing exercise - Re-assess bone density in 2 years * Assessment & Plan Note - Danica Soto MA - 01/19/2025 9:23 AM EDTAssociated Problem(s): Fibromyalgia - continue duloxetine - continue amitriptyline (plan to taper down and off), which is mainly for DE SANTIAGO * Assessment & Plan Note - Danica Soto MA - 01/19/2025 9:23 AM EDTAssociated Problem(s): Gastroesophageal reflux disease without esophagitis - Continue esomeprazole 40 mg daily. - She had her colonoscopy in June 2024 * Assessment & Plan Note - Danica Soto MA - 01/19/2025 9:23 AM EDTAssociated Problem(s): Tubular adenoma of colon - following with [facility] - colonoscopy in Jun 2024 tubular adenoma * Assessment & Plan Note - Danica Soto MA - 01/19/2025 9:23 AM EDTAssociated Problem(s): Essential hypertension - Goal BP < 140/90 per JNC-8, < 130/80 per ACC/AHA guideline ; BP is not at goal today - Co-managed with our pharmacist and strategic analyst - Work on life style modifications. - Continue lisinopril 40 mg daily - Continue metoprolol succinate 25 mg bid - Continue diltiazem 180 mg daily, Financial Intern has increased dose to 360 mg but pt is still mg. Pt reports normal blood pressure - [...] in Jun 2017 due to urinary complaint. * Assessment & Plan Note - Danica Soto MA - 01/19/2025 9:23 AM EDTAssociated Problem(s): Moderate persistent asthma -Current maintenance: montelukast 10mg daily, Symbicort 80-4.5 mcg/ACT 1 puff, BID -Rescue medication: Albuterol inhaler and nebulizer as prn -Last exacerbation: APRIL 2019, Rx Prednisone documented in this encounter Plan of Treatment Upcoming Encounters Date Type Department Care Team (Late st Contact Info) Description 02/14/2025 10:00 AM EDT Medication Management [facility] MED[facility]INE 230 [place] [address] Joe Sneed, VinnyD 230 [place] [address] Scheduled Orders Name Type Priority Associated Diagnoses [...] of this encounter Care Teams Director Of Category Management Relationship Specialty Start Date End Date Azra Vásquez MD 230 [place] [address] PCP - General Family Medicine 10/20/18 Joe Sneed, Uyen 230 [place] [address] Pharmacist Internal Medicine 02/10/24 documented as of this encounter
--- OUTSIDE RECORDS SUMMARY | 2025-01-20 14:05 | XMS_ITS | Encounter Summary ---
Author Organization [employer] Address 75 [facility] 7t [place] [address] Care Team Providers Care Pulley Man Name Role Phone Azra Vásquez MD Primary Care Provider [phone] Joe Sneed PharmD Unavailable [phone] Reason for Visit * Reason Onset Date Comments Appointment Request 05/28/2024 Encounter Details Date Type Department Care Team ([facility] st Contact Info) Description 05/28/2024 Telephone [facility] MEDICINE 230 [place], [place] [phone] Azra Vásquez MD 230 [place], [place] [phone] Appointment Request Social History Tobacco Use Types [...] 02/14/2025 10:00 AM EDT Medication Management [facility] MED[facility]INE 230 [place] [address] Joe Sneed, Uyen 230 [place] [address] documented as of this encounter Goals Goal [...] documented as of this encounter Care Teams Pulley Man Relationship Specialty Start Date End Date Azra Vásquez MD 230 [place] [address] PCP - General Family Medicine 10/20/18 Joe Sneed, VinnyD 230 [place] [address] Pharmacist Internal Medicine 02/10/24 documented as of this encounter
--- OUTSIDE RECORDS SUMMARY | 2025-01-20 14:05 | XMS_ITS | Encounter Summary ---
Author Organization [employer] [facility] Address 75 [facility] 7t [place] [address] Care Team Providers Care Roustabout Crew Name Role Phone Azra Vásquez MD Primary Care Provider [phone] Joe Sneed PharmD Unavailable [phone] Reason for Visit * Reason Comments Med Refill Encounter Details Date Type Department Care Team (Late st Contact Info) Description 03/23/2023 Refill [facility] MEDICINE 230 [place], [place] [phone] Sheree Alford MD 230 [place], [place] [phone] Social History Tobacco Use Types Packs/Day Years [...] [facility] 230 [place], [place] [phone] Joe Sneed, PharmD 230 [place] [address] documented as of this encounter Visit Diagnoses Not on filedocumented in this encounter Additional Health Concerns Assessment Noted Time PHQ-9 Depression Total Score: 10 023 9:12 AM EDT documented as of this encounter Care Teams Roustabout Crew Relationship Specialty Start Date End Date Azra Vásquez MD 230 [place] [address] PCP - General Family Medicine 10/20/18 Joe Sneed, VinnyD [address] [place] [address] Pharmacist Internal Medicine 02/10/24 documented as of this encounter
--- OUTSIDE RECORDS SUMMARY | 2025-01-20 14:05 | XMS_ITS | Encounter Summary ---
Author Organization [employer] Address [address] [facility] [address] 7t [place] [address] Care Team Providers Care Chief Controller Name Role Phone Azra Vásquez MD Primary Care Provider [phone] Joe Sneed PharmD Unavailable [phone] Encounter Details Date Type Department Care Team [...] Description 02/14/2025 10:00 AM EDT Medication Management [facility] MEDICINE 230 [place] [address] Joe Sneed, Uyen 230 [place] [address] documented as of this encounter Goals Goal [...] documented as of this encounter Care Teams Chief Controller Relationship Specialty Start Date End Date Azra Vásquez MD [address] [place] [address] PCP - General Family Medicine 10/20/18 Joe Sneed, PharmD [address] [place] [address] Pharmacist Internal Medicine 02/10/24 documented as of this encounter
--- OUTSIDE RECORDS SUMMARY | 2025-01-20 14:05 | XMS_ITS | Encounter Summary ---
Author Organization [employer] Address [address] [facility] [address] 7t [place] [address] Care Team Providers Care Senior Ux Designer Name Role Phone Azra Vásquez MD Primary Care Provider Joe Sneed PharmD Unavailable [phone] Reason for Visit * Reason Comments Med Refill Encounter Details Date Type Department Care Team ([facility] st Contact Info) Description 01/31/2024 Refill [facility] 230 [place], [place] [phone] Monroe Morel MD 230 [place], [place] [phone] Social History Tobacco Use Types Packs/Day Years [...] Description 02/14/2025 10:00 AM EDT Medication Management [facility] MED[facility] 230 [place] [address] Joe Sneed PharmD 230 [place] [address] documented as of this encounter Goals Goal [...] documented as of this encounter Care Teams Senior Ux Designer Relationship Specialty Start Date End Date Azra Vásquez MD [address] [place] [address] PCP - General Family Medicine 10/20/18 Joe Sneed, Uyen [address] [place] [address] Pharmacist Internal Medicine 02/10/24 documented as of this encounter
--- OUTSIDE RECORDS SUMMARY | 2025-01-20 14:05 | XMS_ITS | Encounter Summary ---
Author Organization [employer] Address 75 [facility] 7t [place] [address] Care Team Providers Care Aged Or Disabled Carer Name Role Phone Azra Vásquez MD Primary Care Provider [phone] Joe Sneed PharmD Unavailable [phone] Reason for Visit * Reason Onset Date Comments Appointment Request 11/26/2024 Encounter Details Date Type Department Care Team ([facility] st Contact Info) Description 11/26/2024 Telephone [facility] MEDICINE 230 [place], [place] [phone] Azra Vásquez MD 230 [place], [place] [phone] Appointment Request Social History Tobacco Use Types [...] Description 02/14/2025 10:00 AM EDT Medication Management [facility] MEDICINE 230 [place] [address] Joe Sneed, PharmD 230 [place] [address] documented as of this encounter Goals Goal [...] documented as of this encounter Care Teams Aged Or Disabled Carer Relationship Specialty Start Date End Date Azra Vásquez MD [address] [place] [address] PCP - General Family Medicine 10/20/18 Joe Sneed, VinnyD [address] [place] [address] Pharmacist Internal Medicine 02/10/24 documented as of this encounter
--- OUTSIDE RECORDS SUMMARY | 2025-01-20 14:05 | XMS_ITS | Encounter Summary ---
Author Organization [employer] Address [address] [facility] [address] 7t [place] [address] Care Team Providers Care Pest Control Service Sales Agent Name Role Phone Azra Vásquez MD Primary Care Provider [phone] Joe Sneed PharmD Unavailable [phone] Encounter Details Date Type Department Care Team (Late st Contact Info) Description 08/31/2024 Orders Only [facility] MEDICINE 230 [place], [place] [phone] Azra Vásquez MD 230 [place], [place] [phone] Social History Tobacco Use Types Packs/Day Years [...] 02/14/2025 10:00 AM EDT Medication Management [facility] MEDICINE [address] [place] [address] Joe Sneed, Uyen 230 [place], [place] [phone] documented as of this encounter Goals Goal [...] documented as of this encounter Care Teams Pest Control Service Sales Agent Relationship Specialty Start Date End Date Azra Vásquez MD [address] [place] [address] [phone] PCP - General Family Medicine 10/20/18 Joe Sneed, VinnyD [address] [place] [address] [phone] Pharmacist Internal Medicine 02/10/24 documented as of this encounter
--- OUTSIDE RECORDS SUMMARY | 2025-01-20 14:05 | XMS_ITS | Encounter Summary ---
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); [...] Description 02/14/2025 10:00 AM EDT Medication Management [facility] MEDICINE 230 [place] [address] Joe Sneed PharmD 230 [place], [place] [phone] documented as of this encounter Goals Goal [...] (Free Thyroxine) 0.77 0.71 - 1.85 ng/dL [facility] Blood Venous blood specimen / Unknown 01/18/2025 12:05 PM EDT 01/18/2025 1:15 PM EDT us Azra Vásquez MD LAB BLOOD ORDERABLES Final Resul t Performing Organization Address [facility] Co de Phone Number [facility] [address] [place] [phone] * TSH (01/18/2025 12:05 PM EDT) Thyroid Stimulating Hormone 3.52 0.32 - 4.0 uIU/mL [facility] Comment:Note: A sustained TS H level above 2.5 uIU/mL may warrant further investigation. 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
[2025-01-20 16:30] LABS: Appearance Urine Clear; Color Urine Yellow; Glucose Urine UA Negative (Negative); Leukocyte Esterase Urine Negative (Negative); Nitrite Urine Negative (Negative); PH 6.5 (5.0-9.0); Urine Blood Negative (Negative); Urine Ketones Negative (Negative); Urine Protein Negative (Neg-Trace)
[2025-01-20 16:36] LABS: Bacteria Urine None Seen (None Seen); Hyaline Casts Urine 0-2 /LPF (0-2); RBC Urine 0-2 /HPF (0-2); Squamous Epithelial Cell Urine 0-2 /HPF (0-2); WBC Urine 0-5 /HPF (0-5)
== END 2025-01-20 12:56 | disposition home or self-care (01) ==
LOC: HO.HHCL 12:55
PROVIDERS: Visit Provider Family Medicine
DX: R30.0 Dysuria (principal)
CPT/HCPCS: 81001; 87086

== ENCOUNTER 2025-03-04 10:39 | Outpatient (REF) | payer OTHER, SELFPAY ==
--- NOTE | ~2025-03-04 | US_ITS ---
CLINICAL HISTORY: history of kidney stone, hisotry of UTI, urinary urgency US Renal Comparison: None Findings: Right kidney normal size and echotexture, 12.0 cm length. Left kidney normal size and echotexture, 10.4 cm length. No hydronephrosis of either kidney. Normal color Doppler. Urinary bladder is unremarkable. Prevoid volume 524 mL. Postvoid volume 37 mL. Right ureteral jet is visualized. Left ureteral jet is not visualized. IMPRESSION: 1. Normal kidneys. This document has been electronically signed by: Johnathon Bob MD on 03/05/2025 08:00:28
--- OUTSIDE RECORDS SUMMARY | 2025-03-04 11:09 | XMS_ITS | Encounter Summary ---
Author Organization [employer] Address 75 [facility] 7t [place] [address] Care Team Providers Care Comprehensive Advisor Name Role Phone Azra Vásquez MD Primary Care Provider [phone] Joe Sneed PharmD Unavailable Reason for Visit * Reason Comments Med Refill Encounter Details Date Type Department Care Team ([facility] st Contact Info) Description 01/11/2025 Refill [facility] MEDICINE 230 [place], [place] [phone] Joe Sneed, PharmD 230 [place], [place] [phone] Essential hypertension Social History Tobacco Use Types [...] Care Team (Late st Contact Info) Description 04/21/2025 10:00 AM EDT Office Visit [facility] MEDICINE [address] [place] [address] Azra Vásquez MD [address] [place] [address] 06/27/2025 1:00 PM EDT Medication Management [facility] MEDICINE [address] [place] [address] Joe Sneed, PharmSimona [address] [place] [address] documented as of this encounter Goals Goal Patient Goal Type Associated Problems Recent Progress Patient-Stated? Author Blood Pressure < 150/90 Blood Pressure 128/70(2024 1:41 PM EDT) No Joe Sneed, PharmD Note: Per JNC-8 (Age 60+, no history of CKD or DM) documented as of this encounter Visit Diagnoses Diagnosis Essential hypertension Unspecified essential hypertension documented in this encounter Additional Health Concerns Assessment Noted Time PHQ-9 Depression Total Score: 27 025 12:14 PM EST documented as of this encounter Care Teams Comprehensive Advisor Relationship Specialty Start Date End Date Azra Vásquez MD [address] [place] [address] PCP - General Family Medicine 10/20/18 Joe Sneed, VinnyD [address] [place] [phone] Pharmacist Internal Medicine 02/10/24 documented as of this encounter
--- OUTSIDE RECORDS SUMMARY | 2025-03-04 11:09 | XMS_ITS | Encounter Summary ---
Author Organization [employer] Address [address] [facility] [address] [place] [address] Care Team Providers Care Flight Test Shop Mechanic Name Role Phone Azra Vásquez MD Primary Care Provider [phone] Joe Sneed PharmD Unavailable [phone] Reason for Visit * Reason Comments Med Refill Encounter Details Date Type Department Care Team (Late st Contact Info) Description 11/21/2022 Refill [facility] MEDICINE [address] [place] [address] [phone] Azra Vásquez MD [address] [place] [address] [phone] Social History Tobacco Use Types Packs/Day Years [...] Description 04/21/2025 10:00 AM EDT Office Visit [facility] MEDICINE [address] [place] [address] [phone] Azra Vásquez MD [address] [place] [address] [phone] 06/27/2025 1:00 PM EDT Medication Management [facility] MEDICINE [address] [place] [address] [phone] Joe Sneed, PharmD [address] [place] [address] documented as of this encounter Visit Diagnoses Not on filedocumented in this encounter Care Teams Flight Test Shop Mechanic Relationship Specialty Start Date End Date Azra Vásquez MD [address] [place] [phone] PCP - General Family Medicine 10/20/18 Joe Sneed, VinnyD [address] [place] [phone] Pharmacist Internal Medicine 02/10/24 documented as of this encounter
--- OUTSIDE RECORDS SUMMARY | 2025-03-04 11:09 | XMS_ITS | Encounter Summary ---
Author Organization [employer] [facility] Address [address] [facility] 7[address] [place] [address] Care Team Providers Care Underwriting Director Name Role Phone Azra Vásquez MD Primary Care Provider [phone] Joe Sneed PharmD Unavailable [phone] Encounter Details Date Type Department Care Team (Late st Contact Info) Description 11/18/2022 Orders Only [facility] MED[facility]INE [address] [place] [phone] Olimpia Damon LPN Social History Tobacco Use [...] Description 04/21/2025 10:00 AM EDT Office Visit [facility] [address] [place] [address] [phone] Azra Vásquez MD [address] [place] [phone] 06/27/2025 1:00 PM EDT Medication Management [facility] [address] [place] [address] [phone] Joe Sneed, PharmD [address] [place] [address] documented as of this encounter Visit Diagnoses Not on filedocumented in this encounter Care Teams Underwriting Director Relationship Specialty Start Date End Date Azra Vásquez MD [address] [place], [place] [phone] PCP - General Family Medicine 10/20/18 Joe Sneed, VinnyD [address] [place] [address] Pharmacist Internal Medicine 02/10/24 documented as of this encounter
--- OUTSIDE RECORDS SUMMARY | 2025-03-04 11:10 | XMS_ITS | Encounter Summary ---
Author Organization [employer] Address [address] [facility] 7t [place] [address] Care Team Providers Care Sound Recordist Name Role Phone Azra Vásquez MD Primary Care Provider [phone] Joe Sneed PharmD Unavailable [phone] Reason for Visit * Reason Onset Date Comments Appointment Request 11/26/2024 Encounter Details Date Type Department Care Team ([facility] st Contact Info) Description 11/26/2024 Telephone [facility] MEDICINE [address] [place], [place] [phone] Azra Vásquez MD [address] [place], [place] [phone] Appointment Request Social History Tobacco Use Types [...] Description 04/21/2025 10:00 AM EDT Office Visit [facility] MED[facility]INE [address] [place] [phone] Azra Vásquez MD [address] [place] [phone] 06/27/2025 1:00 PM EDT Medication Management [facility] [address] [place] [phone] Joe Sneed, PharmD [address] [place] [phone] documented as of this encounter Goals Goal Patient Goal Type Associated Problems Recent Progress Patient-Stated? Author Blood Pressure < 150/90 Blood Pressure 128/70(2024 1:41 PM EDT) Joe Rice, PharmD Note: Per JNC-8 (Age 59+, no history of CKD or DM) documented as of this encounter Visit Diagnoses Not on filedocumented in this encounter Additional Health Concerns Assessment Noted Time PHQ-9 Depression Total Score: 27 025 12:14 PM EST documented as of this encounter Care Teams Sound Recordist Relationship Specialty Start Date End Date Azra Vásquez MD [address] [place] [address] PCP - General Family Medicine 10/20/18 Joe Sneed, VinnyD [address] [place] [address] Pharmacist Internal Medicine 02/10/24 documented as of this encounter
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
--- OUTSIDE RECORDS SUMMARY | 2025-03-04 11:10 | XMS_ITS | Encounter Summary ---
Author Organization [employer] Address [address] [facility] [address] [place] [address] Care Team Providers Care Territory Manager Name Role Phone Azra Vásquez MD Primary Care Provider [phone] Joe Sneed PharmD Unavailable Reason for Visit * Reason Comments Med Refill Encounter Details Date Type Department Care Team (Late st Contact Info) Description 03/23/2023 Refill [facility] [address] [place] [address] [phone] Sheree Alford MD [address] [place] [address] [phone] Social History Tobacco Use Types Packs/Day Years [...] Description 04/21/2025 10:00 AM EDT Office Visit [facility] [address] [place] [address] [phone] Azra Vásquez MD [address] [place] [address] [phone] 06/27/2025 1:00 PM EDT Medication Management [facility] [address] [place] [address] Joe Sneed, PharmD [address] [place] [address] documented as of this encounter Visit Diagnoses Not on filedocumented in this encounter Additional Health Concerns Assessment Noted Time PHQ-9 Depression Total Score: 10 023 9:12 AM EDT documented as of this encounter Care Teams Territory Manager Relationship Specialty Start Date End Date Azra Vásquez MD [address] [place] [phone] PCP - General Family Medicine 10/20/18 Joe Sneed, PharmD [address] [place] [phone] Pharmacist Internal Medicine 02/10/24 documented as of this encounter
--- OUTSIDE RECORDS SUMMARY | 2025-03-04 11:10 | XMS_ITS | Encounter Summary ---
Author Organization [employer] Address [address] [facility] 7[address] [place] [address] Care Team Providers Care Sap Functional Analyst Name Role Phone Azra Vásquez MD Primary Care Provider [phone] Joe Sneed PharmD Unavailable [phone] Reason for Visit * Reason Onset Date Comments Appointment Request 05/28/2024 Encounter Details Date Type Department Care Team ([facility] st Contact Info) Description 05/28/2024 Telephone [facility] [address] [place], [place] [phone] Azra Vásquez MD [address] [place], [place] [phone] Appointment Request Social History Tobacco Use Types [...] Description 04/21/2025 10:00 AM EDT Office Visit [facility] [address] [place] [phone] Azra Vásquez MD [address] [place] [phone] 06/27/2025 1:00 PM EDT Medication Management [facility] [address] [place] [phone] Joe Sneed, PharmD [address] [place] [phone] documented as of this encounter Goals Goal [...] documented as of this encounter Care Teams Sap Functional Analyst Relationship Specialty Start Date End Date Azra Vásquez MD [address] [place] [address] PCP - General Family Medicine 10/20/18 Joe Sneed, Uyen [address] [place] [address] Pharmacist Internal Medicine 02/10/24 documented as of this encounter
--- OUTSIDE RECORDS SUMMARY | 2025-03-04 11:10 | XMS_ITS | Encounter Summary ---
Author Organization [employer] Address [address] [facility] [address] 7t [place] [address] Care Team Providers Care House Wirer Helper Name Role Phone Azra Vásquez MD Primary Care Provider [phone] Joe Sneed PharmD Unavailable [phone] Encounter Details Date Type Department Care Team (Late st Contact Info) Description 08/31/2024 Orders Only [facility] [address] [place], [place] [phone] Azra Vásquez MD [address] [place], [place] [phone] Social History Tobacco Use Types Packs/Day Years [...] Description 04/21/2025 10:00 AM EDT Office Visit [facility] [address] [place] [phone] Azra Vásquez MD [address] [place] [address] 06/27/2025 1:00 PM EDT Medication Management [facility] [address] [place] [address] Joe Sneed PharmD [address] [place] [address] 13461 documented as of this encounter Goals Goal [...] documented as of this encounter Care Teams House Wirer Helper Relationship Specialty Start Date End Date Azra Vásquez MD [address] [place] [address] PCP - General Family Medicine 10/20/18 Joe Sneed, PharmD [address] [place] [address] 17135 Pharmacist Internal Medicine 02/10/24 documented as of this encounter
--- OUTSIDE RECORDS SUMMARY | 2025-03-04 11:10 | XMS_ITS | Encounter Summary ---
Author Organization [employer] Address [address] [facility] [address] 7t [place] [address] Care Team Providers Care Clinical Project Coordinator Name Role Phone Azra Vásquez MD Primary Care Provider [phone] Joe Sneed PharmD Unavailable [phone] Encounter Details Date Type Department Care Team (Late st Contact Info) Description 10/27/2024 Orders Only [facility] [address] [place], [place] [phone] Azra Vásquez MD 230 [place], [place] [phone] 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 (Primary Dx) [...] Description 04/21/2025 10:00 AM EDT Office Visit [facility] [address] [place] [address] 20[address] Azra Vásquez MD [address] [place] [address] 7[address] 06/27/2025 1:00 PM EDT Medication Management [facility] [address] [place] [address] Joe Sneed, PharmD [address] [place] [address] 72080 documented as of this encounter Goals Goal [...] Free T4 0.04(L) 0.32 - 4.0 uIU/mL [facility] Blood 11/11/2024 9:25 AM EST 11/11/2024 11:20 AM EST us Azra Vásquez MD LAB BLOOD ORDERABLES Final Resul t [facility] [address] [place] [address] [phone] documented in this encounter Visit Diagnoses Diagnosis 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- Primary documented in this encounter Additional Health Concerns Assessment Noted Time PHQ-9 Depression Total Score: 27 025 12:14 PM EST documented as of this encounter Care Teams Clinical Project Coordinator Relationship Specialty Start Date End Date Azra Vásquez MD 230 [place] [address] PCP - General Family Medicine 10/20/18 Joe Sneed, VinnyD 230 [place] [address] Pharmacist Internal Medicine 02/10/24 documented as of this encounter
--- OUTSIDE RECORDS SUMMARY | 2025-03-04 11:10 | XMS_ITS | Encounter Summary ---
Author Organization [employer] Address 75 [facility] 7t [place] [address] Care Team Providers Care Cable Engineer Outside Plant Name Role Phone Azra Vásquez MD Primary Care Provider [phone] Joe Sneed PharmD Unavailable [phone] Reason for Visit * Reason Comments Med Refill Encounter Details Date Type Department Care Team (Late st Contact Info) Description 12/25/2022 Refill [facility] [address] [place] [address] [phone] Azra Vásquez MD [address] [place] [address] [phone] Social History Tobacco Use Types Packs/Day Years [...] Description 04/21/2025 10:00 AM EDT Office Visit [facility] [address] [place] [address] [phone] Azra Vásquez MD [address] [place] [address] [phone] 06/27/2025 1:00 PM EDT Medication Management [facility] [address] [place] [address] [phone] Joe Sneed, PharmD 230 [place] [address] documented as of this encounter Visit Diagnoses Not on filedocumented in this encounter Care Teams Cable Engineer Outside Plant Relationship Specialty Start Date End Date Azra Vásquez MD [address] [place] [address] PCP - General Family Medicine 10/20/18 Joe Sneed, VinnyD [address] [place] [address] 12971 Pharmacist Internal Medicine 02/10/24 documented as of this encounter
--- OUTSIDE RECORDS SUMMARY | 2025-03-04 11:10 | XMS_ITS | Encounter Summary ---
Author Organization [employer] Address [address] [facility] [address] [facility] [address] 7t [place] [address] Care Team Providers Care Associate Professor Of Kinesiology Name Role Phone Azra Vásquez MD Primary Care Provider [phone] Joe Sneed PharmD Unavailable [phone] Encounter Details Date Type Department Care Team (Late st Contact Info) Description 11/11/2024 Orders Only 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 [address] [place] [address] Azra Vásquez MD [address] [place] [address] 06/27/2025 1:00 PM EDT Medication Management [address] [address] Joe Sneed, PharmSimona [address] [place] [address] 38421 documented as of this encounter Goals Goal [...] (Free Thyroxine) 0.77 0.71 - 1.85 ng/dL [facility] Blood Venous blood specimen / Unknown 01/18/2025 12:05 PM EDT 01/18/2025 1:15 PM EDT Azra Vásquez MD LAB BLOOD ORDERABLES Final Resul t Performing Organization Address [facility] Co de Phone Number [facility] [address] [place] [address] [phone] * TSH (01/18/2025 12:05 PM EDT) Thyroid Stimulating Hormone 3.52 0.32 - 4.0 uIU/mL [facility] Comment:Note: A sustained TS H level above 2.5 uIU/mL may warrant further investigation. 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
--- OUTSIDE RECORDS SUMMARY | 2025-03-04 11:10 | XMS_ITS | Encounter Summary ---
Author Organization [employer] Address 75 [facility] 7t [place] [address] Care Team Providers Care Ophthalmic Technician Name Role Phone Azra Vásquez MD Primary Care Provider [phone] Joe Sneed PharmD Unavailable [phone] Reason for Referral * Consultation (Routine) - Authorized Specialty Diagnoses / Procedures Referred By Contac t Referred To Contact Pharmacy Diagnoses Essential hypertension Azra Vásquez MD 230 [place] [address] Phone: tel: fax: Referral ID Status Reason Start Date Expiration Date Visits Requested Visits Authorized [id number] Authorized Consult and Treat 10/22/2024 10/22/2025 6 6 Encounter Details Date Type Department Care Team (Late st Contact Info) Description 10/22/2024 Orders Only [facility] [address] [place], [place] [phone] Azra Vásquez MD [address] [place], [place] [phone] Essential hypertension (Primary Dx) Social History Tobacco [...] AM EDT documented as of this encounter Functional Status * Over the past 2 weeks, how often have you been bothered by any of the following problems? Question Answer Date of Assessment Author Patient Health Questionnaire -2 Score 6 10/25/2024 12:14 PM Melissa Bower MA * Little interest or pleasure in doing things Answer Date of Assessment Author Nearly every day 10/25/2024 12:14 PM Bernie Bower MA * Feeling down, depressed, or hopeless Answer Date of Assessment Author Nearly every day 10/25/2024 12:14 PM Bernie Bower MA * Trouble falling or staying asleep, or sleeping too much Answer Date of Assessment Author Nearly every day 10/25/2024 12:14 PM Benrie Bower MA * Feeling tired or having little energy Answer Date of Assessment Author Nearly every day 10/25/2024 12:14 PM Bernie Bower MA * Poor appetite or overeating Answer Date of Assessment Author Nearly every day 10/25/2024 12:14 PM Bernie Bower MA * Feeling bad about yourself - or that you are a failure or have let yourself or your family down Answer Date of Assessment Author Nearly every day 10/25/2024 12:14 PM Bernie Bower MA * Trouble concentrating on things, such as reading the newspaper or watching television Answer Date of Assessment Author Nearly every day 10/25/2024 12:14 PM Bernie Bower MA * Moving or speaking so slowly that other people could have noticed? Or the opposite - being so fidgety or restless that you have been moving around a lot more than usual. Answer Date of Assessment Author Nearly every day 10/25/2024 12:14 PM Bernie Bower MA * Thoughts that you would be better off or hurting yourself in some way Answer Date of Assessment Author Nearly every day 10/25/2024 12:14 PM Bernie Bower MA * Patient Health Questionnaire-9 Score Answer Date of Assessment Author 27 10/25/2024 12:14 PM Bernie Bower MA * How difficult have these problems made it for you to do your work, take care of things at home, or get along with other people? Answer Date of Assessment Author Very difficult 10/25/2024 12:14 PM Bernie Bower MA * Over the last 2 weeks, how often have you been bothered by any of the following problems? Question Answer Date of Assessment Author Feeling nervous, anxious, or on edge 3 10/25/2024 12:14 PM Melissa Bower MA Not being able to stop or control worrying 3 10/25/2024 12:14 PM Melissa Bower MA Worrying too much about different things 3 10/25/2024 12:14 PM Melissa Bower MA Trouble relaxing 3 10/25/2024 12:14 PM Bernie Bower MA Being so restless that it is hard to sit still 3 10/25/2024 12:14 PM Melissa Bower MA Becoming easily annoyed or irritable 3 10/25/2024 12:14 PM Melissa Bower MA Feeling afraid as if somethi ng awful might happen 3 10/25/2024 12:14 PM Melissa Bower MA SKIP-7 Total Score 21 10/25/2024 12:14 PM Bernie Bower MA documented as of this encounter Plan of Treatment Upcoming Encounters Date Type Department Care Team (Late st Contact Info) Description 04/21/2025 10:00 AM EDT Office Visit [facility] [address] [place] [address] Azra Vásquez MD [address] [place] [address] 06/27/2025 1:00 PM EDT Medication Management [facility] [place]a [place], [place] [phone] Joe Sneed, [place] [address] Scheduled Referrals Name Type Priority Associated Diagnoses Orde r Schedule Referral to Pharmacy CDTM Outpatient Referral Routine Essential hypertension Ordered: 10/22/2024 documented as of this encounter Goals Goal Patient Goal Type Associated Problems Recent Progress Patient-Stated? Author Blood Pressure < 150/90 Blood Pressure 128/70(2024 1:41 PM EDT) No Joe Sneed, PharmSimona Note: Per JNC-8 (Age 59+, no history of CKD or DM) documented as of this encounter Visit Diagnoses Diagnosis Essential hypertension- Primary Unspecified essential hypertension documented in this encounter Additional Health Concerns Assessment Noted Time PHQ-9 Depression Total Score: 25 024 10:28 AM EDT documented as of this encounter Care Teams Ophthalmic Technician Relationship Specialty Start Date End Date Azra Vásquez MD [facility] [place], [place] [phone] PCP - General Family Medicine 10/20/18 Joe Sneed, PharmD [address] [place], [place] [phone] Pharmacist Internal Medicine 02/10/24 documented as of this encounter
--- OUTSIDE RECORDS SUMMARY | 2025-03-04 11:10 | XMS_ITS | Encounter Summary ---
Author Organization [employer] Address [address] [facility] [address] 7t [place] [address] Care Team Providers Care High Reach Operator Name Role Phone Azra Vásquez MD Primary Care Provider [phone] Joe Sneed PharmD Unavailable [phone] Encounter Details Date Type Department Care Team (Latest Contact Info) Description 02/28/2025 Travel Social History Tobacco Use Types Packs/Day [...] Description 04/21/2025 10:00 AM EDT Office Visit [facility] [address] [place] [address] [phone] Azra Vásquez MD 230 [place], [place] [phone] 06/27/2025 1:00 PM EDT Medication Management [facility] [address] [place] [address] [phone] Joe Sneed PharmD [address] [place] [address] [phone] documented as of this encounter Goals Goal Patient Goal Type Associated Problems Recent Progress Patient-Stated? Author Blood Pressure < 150/90 Blood Pressure 128/70(2024 1:41 PM EDT) No Joe Sneed, Uyen Note: Per JNC-8 (Age 59+, no history of CKD or DM) documented as of this encounter Visit Diagnoses Not on filedocumented in this encounter Additional Health Concerns Assessment Noted Time PHQ-9 Depression Total Score: 27 025 12:14 PM EST documented as of this encounter Care Teams High Reach Operator Relationship Specialty Start Date End Date Azra Vásquez MD [address] [place] [address] [phone] PCP - General Family Medicine 10/20/18 Joe Sneed, Uyen [address] [place] [address] [phone] Pharmacist Internal Medicine 02/10/24 documented as of this encounter
--- OUTSIDE RECORDS SUMMARY | 2025-03-04 11:10 | XMS_ITS | Encounter Summary ---
Author Organization [employer] Address [address] [facility] [address] 7t [place] [address] Care Team Providers Care Quality Control Lab Tech Name Role Phone Azra Vásquez MD Primary Care Provider [phone] Joe Sneed PharmD Unavailable [phone] Reason for Visit * Reason Comments Med Refill Encounter Details Date Type Department Care Team (Late st Contact Info) Description 01/31/2024 Refill [facility] [place] 230 [place], [place] [phone] [place] Morel MD 230 [place], [place] [phone] Social History Tobacco Use Types Packs/Day Years [...] Description 04/21/2025 10:00 AM EDT Office Visit [facility] [address] [place] [address] Azra Vásquez MD [address] [place] [address] 06/27/2025 1:00 PM EDT Medication Management [facility] [address] [place] [address] Joe Sneed, PharmD [address] [place] [address] 12984 documented as of this encounter Goals Goal [...] documented as of this encounter Care Teams Quality Control Lab Tech Relationship Specialty Start Date End Date Azra Vásquez MD [address] [place] [address] PCP - General Family Medicine 10/20/18 Joe Sneed, PharmD [address] [place] [address]16 Pharmacist Internal Medicine 02/10/24 documented as of this encounter
--- OUTSIDE RECORDS SUMMARY | 2025-03-04 11:10 | XMS_ITS | Encounter Summary ---
Author Organization [employer] Address [address] [facility] [address] 7t [place] [address] Care Team Providers Care Continuous Improvement Lead Name Role Phone Azra Vásquez MD Primary Care Provider [phone] Joe Sneed PharmD Unavailable [phone] Reason for Visit * Reason Comments Med Refill Encounter Details Date Type Department Care Team (Late st Contact Info) Description 06/27/[address] [facility] 230 [place], [place] [phone] [place] Morel MD 230 [place], [place] [phone] Social History Tobacco Use Types Packs/Day Years [...] Description 04/21/2025 10:00 AM EDT Office Visit [facility] [address] [place] [address] Azra Vásquez MD [address] [place] [address] 06/27/2025 1:00 PM EDT Medication Management [facility] [address] [place] [address] Joe Sneed, PharmD [address] [place] [address] documented as of this encounter Goals Goal [...] documented as of this encounter Care Teams Continuous Improvement Lead Relationship Specialty Start Date End Date Azra Vásquez MD [address] [place] [address] 22059 PCP - General Family Medicine 10/20/18 Joe Sneed, PharmD [address] [place] [address] 24267 Pharmacist Internal Medicine 02/10/24 documented as of this encounter
--- OUTSIDE RECORDS SUMMARY | 2025-03-04 11:10 | XMS_ITS | Encounter Summary ---
Author Organization [employer] Address [address] [facility] 7t [place] [address] Care Team Providers Care School Inspector Name Role Phone Azra Vásquez MD Primary Care Provider [phone] Joe Sneed PharmD Unavailable Reason for Visit * Reason Comments Med Refill Encounter Details Date Type Department Care Team ([facility] st Contact Info) Description 02/08/2025 Refill [facility] 230 [place], [place] [phone] Azra Vásquez MD 230 [place], [place] [phone] Essential hypertension Social History Tobacco Use Types [...] Description 04/21/2025 10:00 AM EDT Office Visit [facility] [address] [place] [address] Azra Vásquez MD [address] [place] [address] 06/27/2025 1:00 PM EDT Medication Management [facility] [address] [place] [address] Joe Sneed, PharmSimona [address] [place] [address] documented as of this encounter Goals Goal [...] documented as of this encounter Care Teams School Inspector Relationship Specialty Start Date End Date Azra Vásquez MD [address] [place] [address] PCP - General Family Medicine 10/20/18 Joe Sneed, VinnyD [address] [place] [address] Pharmacist Internal Medicine 02/10/24 documented as of this encounter
--- OUTSIDE RECORDS SUMMARY | 2025-03-04 11:10 | XMS_ITS | Encounter Summary ---
Author Organization [employer] Address 75 [facility] 7t [place] [address] Care Team Providers Care Irrigationist Designer Name Role Phone Azra Vásquez MD Primary Care Provider [phone] Joe Sneed PharmD Unavailable [phone] Reason for Visit * Reason Onset Date Comments Appointment Request 02/14/2025 Encounter Details Date Type Department Care Team ([facility] st Contact Info) Description 02/14/2025 Telephone [facility] 230 [place], [place] [phone] Joe Sneed, PharmD [address] [place], [place] [phone] Appointment Request Social History Tobacco Use Types [...] encounter Miscellaneous Notes * Telephone Encounter - Salo Masterson - 02/14/2025 9:49 AM EDT TC from pt had to cancel todays visit with Joe. Pt not feeling well . Pt wanting to reschedule documented in this encounter Plan of Treatment Upcoming Encounters Date Type Department Care Team (Late st Contact Info) Description 04/21/2025 10:00 AM EDT Office Visit [facility] [address] [place] [phone] Azra Vásquez MD [address] [place] [address] 06/27/2025 1:00 PM EDT Medication Management [facility] [address] [place] [address] Joe Sneed, PharmD [address] [place] [address] 0[address] documented as of this encounter Goals Goal [...] documented as of this encounter Care Teams Irrigationist Designer Relationship Specialty Start Date End Date Azra Vásquez MD 230 [place] [address] PCP - General Family Medicine 10/20/18 Joe Sneed, Uyen [address] [place] [address] Pharmacist Internal Medicine 02/10/24 documented as of this encounter
--- OUTSIDE RECORDS SUMMARY | 2025-03-04 11:10 | XMS_ITS | Encounter Summary ---
Author Organization [employer] Address 75 [facility] 7t [place] [address] Care Team Providers Care Power Wood Sawyer Name Role Phone Azra Vásquez MD Primary Care Provider [phone] Joe Sneed PharmD Unavailable [phone] Reason for Visit * Reason Comments Med Refill Encounter Details Date Type Department Care Team (Late st Contact Info) Description 08/24/[address] [facility] 230 [place], [place] [phone] Azra Vásquez MD 230 [place], [place] [phone] Social History Tobacco Use Types Packs/Day Years [...] Description 04/21/2025 10:00 AM EDT Office [address] [facility] [address] [place] [address] Azra Vásquez MD [address] [place] [address] 06/27/2025 1:00 PM EDT Medication Management [facility] [address] [place] [address] Joe Sneed, PharmD [address] [place] [address] documented as of this encounter Visit Diagnoses Not on filedocumented in this encounter Additional Health Concerns Assessment Noted Time PHQ-9 Depression Total Score: 10 023 9:12 AM EDT documented as of this encounter Care Teams Power Wood Sawyer Relationship Specialty Start Date End Date Azra Vásquez MD [address] [place] [address] PCP - General Family Medicine 10/20/18 Joe Snede, PharmD [address] [place] [address]360 Pharmacist Internal Medicine 02/10/24 documented as of this encounter
== END 2025-03-04 10:40 | disposition home or self-care (01) ==
LOC: HO.US 10:39
PROVIDERS: PCP Family Medicine; Visit Provider Family Medicine
DX: R32 Unspecified urinary incontinence (principal)
CPT/HCPCS: 76770

== ENCOUNTER → 2025-03-04 10:41 | Outpatient (BNV) | payer OTHER, SELFPAY | PROVIDERS: PCP Family Medicine; Visit Provider Specialist | DX: R39.15 Urgency of urination (principal); Z87.442 Personal history of urinary calculi; Z87.440 Personal history of urinary (tract) infections | CPT/HCPCS: 76770 ==

== ENCOUNTER 2025-04-21 10:36 | Outpatient (REF) | payer OTHER, SELFPAY ==
--- OUTSIDE RECORDS SUMMARY | 2025-04-21 11:23 | XMS_ITS | Encounter Summary ---
Author Organization [employer] Address [address] [facility] [address] [place] [address] Care Team Providers Care Plant Maintenance Worker Name Role Phone Azra Vásquez MD Primary Care Provider [phone] Joe Sneed PharmD Unavailable [phone] Reason for Visit * Reason Comments Med Refill Encounter Details Date Type Department Care Team ([facility] st Contact Info) Description 01/11/2025 Refill [facility] [address] [place], [place] [phone] Joe Sneed, PharmD [address] [place], [place] [phone] Essential hypertension Social History Tobacco Use Types [...] Care Team (Late st Contact Info) Description 06/27/2025 1:00 PM EDT Medication Management [facility] [address] [place], [place] [phone] Joe Sneed PharmD [address] [place] [address] documented as of this encounter Goals Goal Patient Goal Type Associated Problems Recent Progress Patient-Stated? Author Blood Pressure < 150/90 Blood Pressure 120/72(2024 10:06 AM EDT) No Joe Sneed, Uyen Note: Per JNC-8 (Age 59+, no history of CKD or DM) documented as of this encounter Visit Diagnoses Diagnosis Essential hypertension Unspecified essential hypertension documented in this encounter Additional Health Concerns Assessment Noted Time PHQ-9 Depression Total Score: 27 025 12:14 PM EST documented as of this encounter Care Teams Plant Maintenance Worker Relationship Specialty Start Date End Date Azra Vásquez MD [address] [place], [place] [phone] PCP - General Family Medicine 10/20/18 Joe Sneed, Uyen [address] [place] [phone] Pharmacist Internal Medicine 02/10/24 documented as of this encounter
--- OUTSIDE RECORDS SUMMARY | 2025-04-21 11:23 | XMS_ITS | Patient Health Record ---
Author Organization [facility] Address [address] [place] [address] Care Team Providers Care Referral Rn Name Role Phone Gerardo Hampton Unavailable [phone] Reason For Referral No Information Plan Of Treatment No Information
== END 2025-04-21 10:37 | disposition home or self-care (01) ==
LOC: HO.HHCL 10:36
PROVIDERS: PCP Family Medicine; Visit Provider Family Medicine
DX: E06.3 Autoimmune thyroiditis (principal); R51.9 Headache, unspecified; G89.29 Other chronic pain
CPT/HCPCS: 36415; 84443; 85652; 86140

== ENCOUNTER 2025-09-20 11:06 | Outpatient (REF) | payer OTHER, SELFPAY ==
--- NOTE | ~2025-09-20 | MM_ITS ---
EXAMINATION: MM SCREENING DIGITAL BREAST TOMOSYNTHESIS, BILATERAL CLINICAL INFORMATION: Screening. Asymptomatic. COMPARISON: Mammography: Comparison is made with available priors TECHNIQUE: Digital breast mammography with tomosynthesis is performed in both the craniocaudal and mediolateral oblique views along with computer-aided detection (CAD). FINDINGS: The breasts are heterogeneously dense, which may obscure small masses. Bilateral scattered asymmetries are stable. There are no significant masses, abnormal calcifications, or other abnormalities. MM/MM tomosynthesis screening BI IMPRESSION: No mammographic evidence of malignancy. ASSESSMENT: BI-RADS Category 2: Benign RECOMMENDATION: Routine annual mammography screening. 1 year F/U This examination should not preclude the clinical evaluation of a suspicious palpable abnormality. This patient's information was entered into a reminder system with a target due date for their next mammogram. Electronically signed by: Zuly Pena DO 09/20/2025 03:31 PM JAYNA
== END 2025-09-20 11:07 | disposition home or self-care (01) ==
LOC: HO.MAMMO 11:06
PROVIDERS: PCP Family Medicine; Visit Provider Family Medicine
DX: Z12.31 Encounter for screening mammogram for malignant neoplasm of breast (principal)
CPT/HCPCS: 77063; 77067

== ENCOUNTER → 2025-09-20 11:30 | Outpatient (BNV) | payer OTHER, SELFPAY | PROVIDERS: PCP Family Medicine; Visit Provider Internal Medicine | DX: Z12.31 Encounter for screening mammogram for malignant neoplasm of breast (principal) | CPT/HCPCS: 77063; 77067 ==